=== PATIENT | male | born 1940 | race Caucasian/White ===

== ENCOUNTER 2019-08-24 06:53 | Outpatient (CLI) | payer OTHER, SELFPAY ==
[2019-08-24 06:58] VITALS: BMI 22.2
--- NOTE | 2019-08-24 07:23 | ECG_ITS ---
NAME OF STUDY: LEXISCAN SESTAMIBI STRESS TEST INDICATION: Dyspnea on Effort PROCEDURE: At the baseline, the blood pressure was 153/102 mmHg, oxygen saturation 96% with a heart rate of 88 bpm. The electrocardiogram showed possibly sinus rhythm with frequent PVCs. Interpretation limited by significant artifact. The Lexiscan was infused over a period of 20 seconds. A total of 0.4 milligrams of Lexiscan was infused. The stress phase was continued for a total of 5 minutes. Heart rate at the end of the stress phase was 96 bpm, oxygen saturation 97% with a blood pressure 134/94 mmHg. The EKG at the peak infusion revealed sinus rhythm with significant baseline artifact. No diagnostic ST-T wave changes. Sestamibi was injected 20 seconds after the Lexiscan infusion. Blood pressure at the end of the recovery phase was 122/89 mmHg, oxygen saturation 97% with a heart rate of 90 beats per minute. CONCLUSION: 1. No diagnostic EKG changes with the LexiScan infusion given significant baseline artifact. 2. No LexiScan induced chest pain or cardiac arrhythmia. 3. Normal blood pressure and heart rate response. 4. Sestamibi/sestamibi perfusion scan pending; see separate report. Electronically Signed On 08-24-2019 13:25:46 MICROBIOLOGICAL LAB TECHNICIAN by Hortensia Landa M.D. [email or web address]
--- NOTE | 2019-08-24 07:24 | NMCV_ITS ---
Jake Jarrell Age: 79 Gender: M : 1940 Exam Date: 08/24/2019 07:22 Ordering Phys: Hortensia Landa MD ([email or web address]) Technologist: DANA Hollingsworth Exam Location: [facility] Indications: Dyspnea STRESS TEST Please [facility] IMAGE PROTOCOL Rest/Stress 1 Lexiscan Day Radiopharmaceutical Dose (mCi) Administration Site Administered by Rest: Tc-99m 9.75 IV DANA Hollingsworth Sestamibi Stress:Tc-99m 32.7 IV DANA Hollingsworth Sestamibi Rest: 24-Aug-2019 60 Discovery 630 Stress: 24-Aug-2019 60 Discovery 630 0.4mg Lexiscan. Images obtained in supine and prone position. SPECT RESULTS Technical Quality: Good Raw Data Analysis: Normal Image Corrections: No attenuation or motion correction applied Summed Stress Score: 0 Summed Rest Score: 1 Summed Difference Score: 0 PERFUSION FINDINGS Small size perfusion abnormality of mild severity of mid inferolateral wall on rest images with improved tracer uptake on stress images. This is suggestive of attenuation artifact. FUNCTIONAL RESULTS (calculated via Gated SPECT) Stress Image LV EF (%): 52 Stress EDV (mL):64 TID: 1.06 Stress ESV (mL):31 FUNCTIONAL FINDINGS: The left ventricle is normal in size. Transient Ischemia Dilatation of 1.1. There is low normal left ventricular systolic function. The left ventricular ejection fraction is low normal with a value of 52%. There is normal left ventricular wall thickening. IMPRESSIONS 1. Myocardial perfusion imaging is normal. Attenuation artifact noted on mid inferolateral wall. 2. The left ventricular ejection fraction is low normal with a value of 52%. 3. There is normal left ventricular wall thickening. 4. No coronary ischemia based on the study. Hortensia Landa MD (Electronically Signed) Final Date: 24 August 2019 17:46 S
[2019-08-24] MEDS: regadenoson 0.4 Mg/5 ml Syringe IVP (08:54)
[2019-08-24 08:59] VITALS: BP 134/91; PULSE 97
== END 2019-08-24 06:54 | disposition home or self-care (01) ==
PROVIDERS: Family Provider Family Medicine; PCP Family Medicine; Visit Provider Internal Medicine Cardiovascular Disease
DX: R06.09 Other forms of dyspnea (principal)
CPT/HCPCS: 78452; 93017; A9500; J2785

== ENCOUNTER 2019-09-10 07:53 | Outpatient (CLI) | payer OTHER, SELFPAY ==
--- NOTE | 2019-09-10 07:59 | CT_ITS ---
WS: [id number] CT ABDOMEN PELVIS TECHNIQUE: Noncontrast CT of the abdomen and contrast-enhanced CT of the abdomen and pelvis with amberly nal and sagittal reformatted images. CLINICAL INFORMATION: PROSTATE CANCER COMPARISON: None. DLP: 1573.[address] scans at [facility] use at least one of these dose optimization techniques: automat ed exposure control; mA and/or kV adjustment per patient size (includes targeted exams where dose is matched to clinical indication); or iterative reconstruction. FINDINGS: Heterogeneously enhancing enlarged nodular prostate measuring 4.3 x 4.6 cm. Several enlarged lymph no gus along the left greater than right seminal vesicles and iliac chains. Markedly enlarged iliac kristin n heterogeneously enhancing lymph nodes the largest in the right measuring 2.9 x 2.5 cm consistent wi th metastatic disease. Enhancing right inguinal lymph node measuring 1.7 cm. Left iliac chain lymphad enopathy. Left iliac chain lymph node measures 1.4 CM. Normal sigmoid colon. Diverticulosis. No evidence of acute diverticulitis. Fat-containing umbilical h ernia with a small loop of abutting small bowel. No obstruction. Diffuse fatty infiltration the liver. Low-attenuation lesions in the liver most consistent with hepat ic cysts the largest in the right hepatic lobe measuring 1.8 cm. Portal vein and splenic vein are pat ent. Normal gallbladder. Splenic granulomas. Small esophageal hiatal hernia. Normal pancreas. Aortic calcification. Mesenteric calcification. Emphysematous changes in the lung bases. Noncalcified nodule in the right middle lobe measuring 7 mm. Additional noncalcified nodule right lung base along the di aphragm measuring 9 mm. Calcified granuloma right lung base. Normal bilateral renal parenchymal enhancement. No hydronephrosis. Adrenal glands are normal. Normal caliber abdominal aorta. Enlarged periaortic lymph nodes the largest measuring 13 mm. Proximal left i liac chain lymph nodes the largest measuring 2.0 CM. Multiple enlarged left proximal iliac chain lymp h nodes. CT/CT abdomen pelvis wo/w [id number] IMPRESSION: 1. Heterogeneously enhancing enlarged nodular prostate measuring 4.6 x 4.3CCM. 2. Enlarged lymph nodes along the periprostatic fat and left greater than righ t seminal vesicles. Additional markedly enlarged pelvic sidewall lymph nodes th e largest in the right measuring 2.9 x 2.5 cm consistent with metastatic diseas e. 3. Enlarged left periaortic lymph nodes and markedly enlarged left proximal co mmon iliac chain lymph nodes. Left common iliac chain lymph node measures 2.5 C M. 4. Noncalcified nodule in the right middle lobe measuring 7 mm. 5. Additional noncalcified nodule in the right lower lobe near the diaphragm m easuring 9 mm. These are nonspecific can be further evaluated with chest CT. 6. Multiple hepatic cysts.
--- NOTE | 2019-09-10 07:59 | NM_ITS ---
WS: [id number] Nuclear medicine whole body bone scan, 09/10/2019 Clinical Data: PROSTATE CANCER Comparison: None. Findings: After the intravenous injection of 26.5 mCi of technetium 99m HDP anterior and posterior wh ole body images were obtained. Additional lateral imaging of the cervical spine and skull was perform ed. There are areas of increased radionuclide activity in the left hip and also on the right side of the L4 vertebral body. These could represent metastatic lesions but osteoarthritis is also a possibility. The remainder of the skeleton show no abnormal areas of increased uptake. Renal function appeared to be normal. NM/NM bone scan whole body* [id number] Impression: 1. Increased activity in the right side of the L4 vertebral body and in the lef t hip and recommend left hip x-ray and lumbar spine. 2. Remainder of the skeleton is normal.
[2019-09-10 09:11] LABS: Blood Urea Nitrogen 19 mg/dL (8-23)
[2019-09-10] MEDS: iodixanol 320 mg/mL 100mL Btl IV (09:59)
--- NOTE | 2019-09-10 11:52 | XR_ITS ---
WS: [id number] Lumbar spine, 3 views, 09/10/2019 Clinical Data: COMPARISON TO BONE SCAN Comparison: Nuclear medicine bone scan, 09/10/2019 Findings: There is osteoarthritic change noted at the right side of the L4-L5 disc interspace. This corresponds to the area of activity on the bone scan. No evidence of metastatic disease is seen. There is a slig ht levo scoliosis of the lumbar spine. The thoracic aorta shows calcification but no aneurysm. There is contrast material in the kidneys and bladder from the recent CT scan of the abdomen and pelvis. XR/XR lumbar spine 2-3V* [id number] Impression: 1. Osteoarthritic change in on the right side of the L4-L5 and vertebral bodies and there is no metastatic disease. 2. Remainder of the lumbar spine shows only osteoarthritis.
--- NOTE | 2019-09-10 11:52 | XR_ITS ---
WS: [id number] Left hip, AP and frog leg views, 09/10/2019 Clinical Data: COMPARISON TO BONE SCAN Comparison: [facility] bone scan, 09/10/2019 Findings: No fractures or dislocations are seen. There is minimal narrowing of the joint space. Between the lat eral aspect of the acetabulum and the left femoral head.. The soft tissues are not remarkable. The ad jacent pelvis is normal. No bone destruction or erosion is seen. There is contrast material in the bladder from the patient's CT abdomen and pelvis. XR/XR hip LT 2-3V wo/w pel* [id number] Impression: 1. Minimal osteoarthritic narrowing of the left hip joint. 2. Negative for evidence of bony metastatic disease.
== END 2019-09-10 07:54 | disposition home or self-care (01) ==
LOC: CT 07:55
PROVIDERS: Family Provider Family Medicine; PCP Family Medicine; Visit Provider Urology
DX: C61 Malignant neoplasm of prostate (principal); K76.89 Other specified diseases of liver; M16.12 Unilateral primary osteoarthritis, left hip
CPT/HCPCS: 72100; 73502; 74178; 78306; 82565; 84520; A9561

== ENCOUNTER 2019-10-06 09:53 | Outpatient (CLI) | payer OTHER, SELFPAY ==
--- NOTE | 2019-10-06 12:23 | ONC CON_ITS ---
Dr. Saab New Patient Note Patient: Jake Jarrell Unit #: [id number]: 1940 Dicatated By: Andrae Saab M.D.Date of Visit: Oct 06, 2019 Onc MED New Patient/Consult Referring Physician: Dr. Wade Forrester M.D. History of Present Illness: Mr. 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, 3 cores (right mid 40%, right lateral base 90%, right lateral mid 20%0 Capulin score 3+4, 3 cores (left lateral base 45%, left lateral apex 30%, right base 20%) with Ashish score 4+4 and 2 cores (left lateral mid 50%, left base 15% )with Ashish score 4+5 Left seminal vesicle, Capulin score 4+4 CT scan of chest abdomen pelvis showed large lymph nodes along stanley prostatic at and left greater than right seminal vesicles, markedly enlarged pelvic sidewall lymph nodes the largest in the right measuring 2.9 x 2.5 cm consistent with metastatic disease, enlarged left periaortic lymph nodes and markedly enlarged left proximal common iliac chain lymph nodes, left common iliac lymph node measured 2.5 cm. Noncalcified nodule right middle lobe measuring 7 mm and additional noncalcified nodule right lower lobe of lung near diaphragm measuring 9 mm Bone scan showed increase activity in the right side of L4 vertebral body and in the left hip. Left hip x-ray negative for evidence of bone metastatic disease Lumbar spine x-ray showed arthritic changes on this right side of L4-L5 vertebral bodies, no metastatic disease. The patient was started on bicalutamide by Dr. Forrester on 09/20/2019 Patient denies any bony pains, denies any hematuria or dysuria, denies any hemoptysis or hematemesis, denies any jaundice, denies any nausea vomiting or fever, denies any weight loss. Past Medical History: Mr. Jarrell's medical history consists of benign neoplasm of adrenal gland, bradycardia, chronic obstructive pulmonary disease, cystic disease of liver, dyslipidemia, gastroesophageal reflux disease, history of colon cancer, hypertension, pulmonary nodule, and sinus node dysfunction. Past Surgical History: Mr. Raymundos surgical/procedural history consists of cataract excision, colon resection, pacemaker placement, right knee surgery, tonsillectomy, and trusp/bx. Medications: Albuterol Sulfate (sensor) 1 Puff(s) (of 108 (90 base) mcg/act) Aerosol Powder, Breath Activated Inhalation PRN, amLODIPine Besylate 1 Tablet (of 5 mg) Oral daily, Bicalutamide 1 Tablet (of 50 mg) Oral daily, Metoprolol Tartrate 1 Tablet (of 25 mg) Oral daily, Omeprazole 1 Tablet (of 20 mg) Tablet, enteric coated Oral daily, Rosuvastatin Calcium 1 Tablet (of 10 mg) Oral daily, Tamsulosin HCl 1 Tablet (of 0.4 mg) Capsule Oral b.i.d. Allergies: Oxaliplatin and Simvastatin. Social History: Mr. Jarrell is single. Mr. Jarrell quit smoking 20 years ago but had smoked for 20 years. He has no history of drinking. Family History: Mr. Jarrell's mother at age 90: colon cancer. Mr. Jarrell's father at age 71: stomach cancer. Mr. Jarrell has 2 brothers: 2 alive. Mr. Jarrell's first brother's esophageal cancer. Review Of Symptoms: Constitutional - Appetite is good and weight is stable. No fever, chills, hot flashes, or night sweats. Energy level is good but Pt fatigues easily, ENMT - Positive for sinus congestion/drainage. No mouth sores. No sore throat or difficulty swallowing, Hematologic/Lymphatic - Positive for easy bruising, Respiratory - Positive for shortness of breath. No cough. No pleuritic pain or hemoptysis, Cardiovascular - No angina pain. No palpitations, Gastrointestinal - No nausea or vomiting. No heartburn or acid reflux. No diarrhea or constipation. No blood in the stool or black stools, Genitourinary (M) - No dysuria or hematuria. Positive for urinary frequency. No urgency or incontinence, Musculoskeletal - No joint or bone pain, Neurologic - No headache or dizziness. Pt reports occasional numbness/tingling in extremities, Psychiatric - No anxiety or depression. No insomnia. Vital Signs: Performed on Oct 06, 2019 11:16: 0, 23.86, 1.89 sq.m, 69.00 in, 97 %, 82 /min, 20 /min, 138/97 mm(hg), 97.4 F (LOW), and 161.6 lbs (HIGH). Performance Status: 0 - Fully active, able to carry on all predisease activities without restrictions. (ECOG) Physical Examination: ENMT - No oral exudates, ulcers, masses, thrush or mucositis. Oropharynx clear. Tongue normal, Respiratory - Lungs are clear to auscultation without rhonchi or wheezing, Cardiovascular - Regular rate and rhythm of heart, Abdomen - Non-tender, non-distended, Good bowel sounds. No guarding or rebound tenderness. No pulsatile masses, Extremities - no edema. Lab/Imaging: Most recent lab results are not available for this patient. 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, 3 cores with Ashish score 3+4, 3 cores with Capulin score 4+4, and 2 cores with Capulin score 4+5, and seminal vesicles involvement with Capulin score 4+4 CT scan of chest abdomen pelvis showed large lymph nodes along the periprostatic fat and left greater than right seminal vesicles, Markedly enlarged pelvic sidewall lymph nodes the largest in the right measuring 2.9 x 2.5 cm consistent with metastatic disease Enlarged left periaortic lymph nodes and marked enlarged left proximal common iliac chain lymph nodes, left common iliac chain lymph nodes measuring about 2.5 cm, Noncalcified nodule right middle lobe measuring 7 mm, additional noncalcified nodule right lower lobe of lung near diaphragm measuring 9 mm Bone scan showed increased activity in the right side of L4 vertebral body and in the left hip Left hip x-ray showed no evidence of bony metastatic disease Lumbar spine x-ray shows arthritic changes in right side of L4/L5 vertebral bodies, no metastatic disease. History of sick sinus syndrome now with pacemaker Plan: Discussed with patient regarding his disease status, patient has locally advanced disease with extensive pelvic and para-aortic lymphadenopathy but main concern is right lung nodules, if positive then it we will confirm stage IV disease so we will consider CT PET scan to complete the staging workup, if it shows locoregional disease e.g. no pulmonary metastases, we will consider referred to radiation oncology in addition to ADT with bicalutamide/Zoladex.and also check MSI/MMR status Patient is on bicalutamide since 09/20/2019, tolerating well and we will also add 3 monthly Zoladex 10.8 mg, will obtain approval from his insurance prior to the treatment all the side effect possible benefits associated with ADT including but not limited to hot flashes, generalized weakness and fatigue, gynecomastia, osteoporosis were discussed further teaching will be done by chemotherapy nurse. And also schedule him for CT PET scan to assess pulmonary lesions to rule out distant metastases. As mentioned above if CT PET scan to confirm locoregional disease then we will refer him to radiation oncology for evaluation. Patient will return to clinic 1 month after Zoladex injection with PSA/testosterone and CT PET scan Signed By: Andrae Saab M.D. <<Signature on File>>
[2019-11-09 09:33] LABS: Miscellaneous Test See Scanned Lab Rpt
== END 2019-10-06 09:54 | disposition home or self-care (01) ==
LOC: ONCMED 09:55
PROVIDERS: Family Provider Family Medicine; PCP Family Medicine; Referring Provider Urology; Visit Provider Internal Medicine Hematology & Oncology
DX: C61 Malignant neoplasm of prostate (principal); C77.5 Secondary and unspecified malignant neoplasm of intrapelvic lymph nodes; R91.8 Other nonspecific abnormal finding of lung field; J44.9 Chronic obstructive pulmonary disease, unspecified; E78.5 Hyperlipidemia, unspecified; K21.9 Gastro-esophageal reflux disease without esophagitis; I10 Essential (primary) hypertension; Z79.51 Long term (current) use of inhaled steroids; Z79.899 Other long term (current) drug therapy; Z90.49 Acquired absence of other specified parts of digestive tract; Z85.038 Personal history of other malignant neoplasm of large intestine; Z95.0 Presence of cardiac pacemaker; Z87.891 Personal history of nicotine dependence
CPT/HCPCS: 88367; 88374; 99205

== ENCOUNTER 2019-10-18 14:10 | Outpatient (CLI) | payer OTHER, SELFPAY ==
[2019-10-18] MEDS: lidocaine 1% INJ 20 mL INJECTION (14:36)
[2019-10-18] MEDS: goserelin acetate 10.8 mg Implant IM (14:47)
== END 2019-10-18 14:11 | disposition home or self-care (01) ==
PROVIDERS: Family Provider Family Medicine; PCP Family Medicine; Visit Provider Internal Medicine Hematology & Oncology
DX: C61 Malignant neoplasm of prostate (principal); Z79.818 Long term (current) use of other agents affecting estrogen receptors and estrogen levels
CPT/HCPCS: 96372; 96402; J2001; J9202

== ENCOUNTER 2019-11-09 06:36 | Outpatient (RCR) | payer OTHER, SELFPAY ==
[2019-11-05 13:24] LABS: Prostate Specific Antigen 10.17 ng/mL (0-4)
--- NOTE | 2019-11-09 16:38 | ONC FU_ITS ---
Dr. Saab follow up note Patient: Jake Jarrell Unit #: [id number]: 1940 Dicatated By: Andrae Saab M.D.Date of Visit:Nov 09, 2019 Onc Med Follow-up/Prog Note History of Present Illness: Mr. 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, 3 cores (right mid 40%, right lateral base 90%, right lateral mid 20%0 Ashish score 3+4, 3 cores (left lateral base 45%, left lateral apex 30%, right base 20%) with Ashish score 4+4 and 2 cores (left lateral mid 50%, left base 15% )with Ashish score 4+5 Left seminal vesicle, Ashish score 4+4 CT scan of chest abdomen pelvis showed large lymph nodes along stanley prostatic at and left greater than right seminal vesicles, markedly enlarged pelvic sidewall lymph nodes the largest in the right measuring 2.9 x 2.5 cm consistent with metastatic disease, enlarged left periaortic lymph nodes and markedly enlarged left proximal common iliac chain lymph nodes, left common iliac lymph node measured 2.5 cm. Noncalcified nodule right middle lobe measuring 7 mm and additional noncalcified nodule right lower lobe of lung near diaphragm measuring 9 mm Bone scan showed increase activity in the right side of L4 vertebral body and in the left hip. Left hip x-ray negative for evidence of bone metastatic disease Lumbar spine x-ray showed arthritic changes on this right side of L4-L5 vertebral bodies, no metastatic disease. CT PET scan done on 10/09/2019 showed hypermetabolic lesion in the right prostate gland, consistent with primary. Bilateral pelvic and retroperitoneal lymphadenopathy consistent with metastatic disease. No evidence of osseous metastatic disease or pulmonary metastatic disease. The patient was started on bicalutamide by Dr. Forrester on 09/20/2019 Patient denies any bony pains, denies any hematuria or dysuria, denies any hemoptysis or hematemesis, denies any jaundice, denies any nausea vomiting or fever, denies any weight loss. Came for follow-up, denies any specific complaints, no fever or chills, no nausea or vomiting, no diarrhea constipation, no night sweats, tolerating ADT with Zoladex/Casodex well Medications: Albuterol Sulfate (sensor) 1 Puff(s) (of 108 (90 base) mcg/act) Aerosol Powder, Breath Activated Inhalation PRN, amLODIPine Besylate 1 Tablet (of 5 mg) Oral daily, Bicalutamide 1 Tablet (of 50 mg) Oral daily, Metoprolol Tartrate 1 Tablet (of 25 mg) Oral daily, Omeprazole 1 Tablet (of 20 mg) Tablet, enteric coated Oral daily, Rosuvastatin Calcium 1 Tablet (of 10 mg) Oral daily, Tamsulosin HCl 1 Tablet (of 0.4 mg) Capsule Oral b.i.d. Allergies: Oxaliplatin and Simvastatin. Review of Systems: Constitutional - Appetite is good and weight is stable. No fever, chills, hot flashes, or night sweats. Energy level is good but Pt fatigues easily, ENMT - Positive for sinus congestion/drainage. No mouth sores. No sore throat or difficulty swallowing, Hematologic/Lymphatic - Positive for easy bruising, Respiratory - Positive for shortness of breath. No cough. No pleuritic pain or hemoptysis, Cardiovascular - No angina pain. No palpitations, Gastrointestinal - No nausea or vomiting. No heartburn or acid reflux. No diarrhea or constipation. No blood in the stool or black stools, Genitourinary (M) - No dysuria or hematuria. Positive for urinary frequency. No urgency or incontinence, Musculoskeletal - No joint or bone pain, Neurologic - No headache or dizziness. Pt reports occasional numbness/tingling in extremities, Psychiatric - No anxiety or depression. No insomnia. Vital Signs: Performed on Nov 09, 2019 12:49 Height - 69.00 in Weight - 157.2 lbs (LOW) BSA - 1.86 sq.m BMI - 23.21 Temperature - 97.5 F (LOW) Pulse - 51 /min (LOW) Respiration - 18 /min BP - 124/81 mm(hg) O2 Sat - 96 % Pain - 0 Performance Status: 0 - Fully active, able to carry on all predisease activities without restrictions. (ECOG) Physical Examination: ENMT - No oral exudates, ulcers, masses, thrush or mucositis. Oropharynx clear. Tongue normal, Respiratory - Lungs are clear to auscultation without rhonchi or wheezing, Cardiovascular - Regular rate and rhythm of heart, Abdomen - Non-tender, non-distended, Good bowel sounds. No guarding or rebound tenderness. No pulsatile masses, Extremities - no edema. Lab/Imaging: Most recent lab results are not available for this patient. 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, 3 cores with Holbrook score 3+4, 3 cores with Ashish score 4+4, and 2 cores with Ashish score 4+5, and seminal vesicles involvement with Holbrook score 4+4 CT scan of chest abdomen pelvis showed large lymph nodes along the periprostatic fat and left greater than right seminal vesicles, Markedly enlarged pelvic sidewall lymph nodes the largest in the right measuring 2.9 x 2.5 cm consistent with metastatic disease Enlarged left periaortic lymph nodes and marked enlarged left proximal common iliac chain lymph nodes, left common iliac chain lymph nodes measuring about 2.5 cm, Noncalcified nodule right middle lobe measuring 7 mm, additional noncalcified nodule right lower lobe of lung near diaphragm measuring 9 mm Bone scan showed increased activity in the right side of L4 vertebral body and in the left hip Left hip x-ray showed no evidence of bony metastatic disease Lumbar spine x-ray shows arthritic changes in right side of L4/L5 vertebral bodies, no metastatic disease. History of sick sinus syndrome now with pacemaker Plan: Discussed with patient regarding his labs PSA 10.17 compared to 21.3 at the time of diagnosis and his CT PET scan findings which shows locoregional disease, no evidence of distance metastases as CT scan of abdomen pelvis done initially for staging showed pulmonary nodules. E.g. 7 mm right middle lobe and 9 mm right lower lobe. And bone scan showed increased activity in the right side of L4 vertebra and in the left hip but left hip x-ray was negative for metastatic disease.and MSI/MMR status was intact Clinically, patient doing well with no signs symptoms suggestive of disease progression, tolerating ADT with Zoladex/Casodex well. His CT PET scan shows no evidence of distance metastases rather locoregional disease, this point we will refer him to radiation oncology for evaluation for concurrent ADT and radiation therapy. In the meantime we'll continue supportive care and he'll return to clinic in January for next dose of Zoladex with PSA and testosterone level. Signed By: Andrae Saab M.D. <<Signature on File>>
== END 2019-11-09 23:59 | disposition home or self-care (01) ==
LOC: ONCMED 06:36
PROVIDERS: Family Provider Family Medicine; PCP Family Medicine; Visit Provider Internal Medicine Hematology & Oncology
DX: C61 Malignant neoplasm of prostate (principal); C77.8 Secondary and unspecified malignant neoplasm of lymph nodes of multiple regions; R91.8 Other nonspecific abnormal finding of lung field; M47.896 Other spondylosis, lumbar region; Z79.899 Other long term (current) drug therapy; Z79.818 Long term (current) use of other agents affecting estrogen receptors and estrogen levels; Z95.0 Presence of cardiac pacemaker
CPT/HCPCS: 84153; 99214

== ENCOUNTER 2020-01-13 15:31 | Outpatient (CLI) | payer OTHER, SELFPAY ==
[2020-01-13 17:01] LABS: Prostate Specific Antigen 3.85 ng/mL (0-4)
[2020-01-13 18:51] LABS: Testosterone Total 2.5 ng/dL (193-740)
== END 2020-01-13 15:32 | disposition home or self-care (01) ==
LOC: ONCMED 15:32
PROVIDERS: PCP Family Medicine; Visit Provider Internal Medicine Hematology & Oncology
DX: C61 Malignant neoplasm of prostate (principal)
CPT/HCPCS: 36415; 84153; 84403

== ENCOUNTER 2020-01-18 14:14 | Outpatient (CLI) | payer OTHER, SELFPAY ==
[2020-01-18] MEDS: lidocaine 1% INJ 20 mL INJECTION (15:05)
[2020-01-18] MEDS: goserelin acetate 10.8 mg Implant IM (15:15)
--- NOTE | 2020-01-18 15:15 | ONC FU_ITS ---
Dr. Saab follow up note Patient: Jake Jarrell < Unit #: [id number]: 1940 Dicatated By: Andrae Saab M.D.Date of Visit:Jan 18, 2020 Onc Med Follow-up/Prog Note History of Present Illness: Mr. 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, 3 cores (right mid 40%, right lateral base 90%, right lateral mid 20%0 Houston score 3+4, 3 cores (left lateral base 45%, left lateral apex 30%, right base 20%) with Houston score 4+4 and 2 cores (left lateral mid 50%, left base 15% )with Ashish score 4+5 Left seminal vesicle, Houston score 4+4 CT scan of chest abdomen pelvis showed large lymph nodes along stanley prostatic at and left greater than right seminal vesicles, markedly enlarged pelvic sidewall lymph nodes the largest in the right measuring 2.9 x 2.5 cm consistent with metastatic disease, enlarged left periaortic lymph nodes and markedly enlarged left proximal common iliac chain lymph nodes, left common iliac lymph node measured 2.5 cm. Noncalcified nodule right middle lobe measuring 7 mm and additional noncalcified nodule right lower lobe of lung near diaphragm measuring 9 mm Bone scan showed increase activity in the right side of L4 vertebral body and in the left hip. Left hip x-ray negative for evidence of bone metastatic disease Lumbar spine x-ray showed arthritic changes on this right side of L4-L5 vertebral bodies, no metastatic disease. CT PET scan done on 10/09/2019 showed hypermetabolic lesion in the right prostate gland, consistent with primary. Bilateral pelvic and retroperitoneal lymphadenopathy consistent with metastatic disease. No evidence of osseous metastatic disease or pulmonary metastatic disease. The patient was started on bicalutamide by Dr. Forrester on 09/20/2019 Patient denies any bony pains, denies any hematuria or dysuria, denies any hemoptysis or hematemesis, denies any jaundice, denies any nausea vomiting or fever, denies any weight loss. Came for follow-up, denies any specific complaint except progressive shortness of breath especially wheezing on exertion, patient has history of COPD, as per patient he called his PMD and he was given 2 inhalers 1 was albuterol and other was Symbicort, as per patient is not helping much. Denies any palpitation or chest pain denies any fever chills diarrhea nausea or vomiting but postnasal drip occasionally dry cough. Occasional hot flashes, tolerating Zoladex/Casodex well otherwise. Patient was referred to radiation oncology, as per patient he did not get any call from them. Medications: Albuterol Sulfate (sensor) 1 Puff(s) (of 108 (90 base) mcg/act) Aerosol Powder, Breath Activated Inhalation PRN, amLODIPine Besylate 1 Tablet (of 5 mg) Oral daily, Bicalutamide 1 Tablet (of 50 mg) Oral daily, Metoprolol Tartrate 1 Tablet (of 25 mg) Oral daily, Omeprazole 1 Tablet (of 20 mg) Tablet, enteric coated Oral daily, ProAir HFA 1 Puff(s) (of 108 (90 base) mcg/act) Aerosol, solution Inhalation four times a day PRN, Rosuvastatin Calcium 1 Tablet (of 10 mg) Oral daily, Symbicort 1 Puff(s) (of 160-4.5 mcg/act) Aerosol Inhalation b.i.d., Tamsulosin HCl 1 Tablet (of 0.4 mg) Capsule Oral b.i.d. Allergies: Oxaliplatin and Simvastatin. Review of Systems: Constitutional - Appetite is good and weight is stable. No fever, chills, hot flashes, or night sweats. Energy level is good but Pt fatigues easily, ENMT - Positive for sinus congestion/drainage. No mouth sores. No sore throat or difficulty swallowing, Hematologic/Lymphatic - Positive for easy bruising, Respiratory - Positive for shortness of breath. No cough. No pleuritic pain or hemoptysis, Cardiovascular - No angina pain. No palpitations, Gastrointestinal - No nausea or vomiting. No heartburn or acid reflux. No diarrhea or constipation. No blood in the stool or black stools, Genitourinary (M) - No dysuria or hematuria. Positive for urinary frequency. No urgency or incontinence, Musculoskeletal - No joint or bone pain, Neurologic - No headache or dizziness. Pt reports occasional numbness/tingling in extremities, Psychiatric - No anxiety or depression. No insomnia. Vital Signs: Performed on Jan 18, 2020 14:26 Height - 69.00 in Weight - 157.6 lbs (HIGH) BSA - 1.87 sq.m BMI - 23.27 Temperature - 98.0 F (LOW) Pulse - 79 /min Respiration - 18 /min BP - 112/73 mm(hg) O2 Sat - 99 % Pain - 0 Performance Status: 1 - No physically strenuous activity, but ambulatory and able to carry out light or sedentary work (e.g. office work, light house work). (ECOG) Physical Examination: ENMT - No mouth sores, no thrush, no jaundice, Respiratory - Mild bilateral wheezing otherwise clear, Heart regular rate and rhythm, Abdomen - Soft, bowel sounds present, Extremities - No visible edema or rash. 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, 3 cores with Houston score 3+4, 3 cores with Ashish score 4+4, and 2 cores with Houston score 4+5, and seminal vesicles involvement with Houston score 4+4 CT scan of chest abdomen pelvis showed large lymph nodes along the periprostatic fat and left greater than right seminal vesicles, Markedly enlarged pelvic sidewall lymph nodes the largest in the right measuring 2.9 x 2.5 cm consistent with metastatic disease Enlarged left periaortic lymph nodes and marked enlarged left proximal common iliac chain lymph nodes, left common iliac chain lymph nodes measuring about 2.5 cm, Noncalcified nodule right middle lobe measuring 7 mm, additional noncalcified nodule right lower lobe of lung near diaphragm measuring 9 mm Bone scan showed increased activity in the right side of L4 vertebral body and in the left hip Left hip x-ray showed no evidence of bony metastatic disease Lumbar spine x-ray shows arthritic changes in right side of L4/L5 vertebral bodies, no metastatic disease. History of sick sinus syndrome now with pacemaker Plan: Discussed with patient regarding his labs PSA 3.85 compared to 10.17 on November 05, 2019 and testosterone is 2.5. Clinically, patient is doing well, tolerating ADT with Casodex/Zoladex well, his follow-up PSA level shows excellent response, at this point we will proceed with the next 3 monthly dose of Zoladex today and then he will return to clinic in 3 months in the meantime will discontinue bicalutamide today and refer him to radiation oncology again. As far as COPD exacerbation is concerned patient has no signs symptoms suggestive of infection and not much improvement with inhalers, we will give him a trial of Medrol Dosepak, if there is no improvement patient was advised to go to hospital for evaluation and also contact his PMD for evaluation and for possible referral to pulmonology for evaluation and optimizing pulmonary function. We will also check baseline CBC CMP and then he will return to clinic in 3 months with PSA and for Zoladex Signed By: Andrae Saab M.D. <<Signature on File>>
[2020-01-18 15:18] LABS: Basophils # 0.1 10^3/uL (0.0-0.1); Basophils % 0.6 %; Eosinophils # 0.1 10^3/uL (0.0-0.8); Eosinophils % 0.9 %; Hematocrit 43.5 % (42.0-52.0); Lymphocytes # 1.7 10^3/uL (0.8-4.8); Lymphocytes % 20.9 %; Mean Corpuscular HGB Conc 32.2 g/dL (30.0-36.0); Mean Corpuscular Hemoglobin 29.9 pg (28.0-34.0); Mean Corpuscular Volume 92.8 fL (80-94); Mean Platelet Volume 9.9 fL (7.4-10.4); Monocytes # 0.7 10^3/uL (0.2-0.9); Monocytes % 8.5 %; Neutrophils # 5.5 10^3/uL (1.8-7.7); Neutrophils % 68.9 %; Nucleated Red Blood Cells % 0 %; Platelet Count 229 10^3/cmm (130-400); Red Blood Count 4.69 10^6/uL (4.1-5.3); Red Cell Distribution Width 12.5 % (12.1-15.1)
[2020-01-18 15:29] LABS: Alanine Aminotransferase 16 U/L (0-41); Albumin Level 4.8 g/dL (3.5-5.2); Alkaline Phosphatase 51 IU/L (40-130); Anion Gap 13.1 (5-19); Aspartate Amino Transferase 22 U/L (0-40); Blood Urea Nitrogen 25 mg/dL (8-23); Calcium 9.5 mg/dL (8.5-10.5); Carbon Dioxide 27 mmol/L (22-29); Chloride 103 mmol/L (98-107); Globulin 2.3 g/dL (1.3-4.6); Glucose 81 mg/dL (65-115); Osmolality Calculated 284 mOsm/kg (285-295); Potassium 4.1 mmol/L (3.5-5.1); Sodium 139 mmol/L (136-145); Total Bilirubin 0.4 mg/dL (0.15-1.2); Total Protein 7.1 g/dL (6.6-8.7)
== END 2020-01-18 14:15 | disposition home or self-care (01) ==
LOC: ONCMED 14:16
PROVIDERS: PCP Family Medicine; Visit Provider Internal Medicine Hematology & Oncology
DX: C61 Malignant neoplasm of prostate (principal); R97.20 Elevated prostate specific antigen [PSA]; Z79.818 Long term (current) use of other agents affecting estrogen receptors and estrogen levels
CPT/HCPCS: 80053; 85025; 96372; 96402; 99214; J2001; J9202

== ENCOUNTER 2020-01-26 13:52 | Outpatient (CLI) | payer OTHER, SELFPAY ==
--- NOTE | 2020-01-26 15:39 | N.ONRAD NP_ITS ---
Radiation Oncology New Patient Visit Patient: Jake Jarrell MR#: [id number] : 1940> Age: 79> Sex: Male> Dictated by: Dr. Myke Catherine Date of Service: 01/26/2020 Referring Physician(s) : Dr. Wade Forrester Diagnosis: C61 - malignant neoplasm of prostate, Diagnosed 10/06/2019 (active). Radiotherapy to date: Summary > No prior radiation therapy. Chief Complaint / History of Present Illness: Mr. Jarrell is a 79-year-old man with advanced prostate cancer. He was found to have an elevated PSA early in 2019. I think he presented with obstructive symptoms and was placed on Flomax with good results, but a PSA done during that evaluation was elevated. He elected a conservative approach but the elevation of the PSA persisted and on 07/30/2019 he underwent prostate biopsies. He had multiple positive biopsies with Dawn 8 and 9 scores. A biopsy of the left seminal vesicle showed Dawn 4+4 cancer as well. His work-up revealed positive pelvic nodes bilaterally and suspicious bilateral periaortic nodes. His bone scan scan showed activity at L4 and in the left hip. Plain film evaluation indicated degenerative disease in the spine and normal findings in the hip. He also went underwent a PET scan 10/09/2019. That study revealed hypermetabolic lesions in the proximal right prostate gland, bilateral pelvic and retroperitoneal lymphadenopathy and along the bilateral periaortic chain. Mr. Jarrell was started on Casodex and subsequently Zoladex was added. He has had an excellent response to treatment. His PSA is down in the normal range. He feels well except for symptoms related to his COPD. He filled out an AUA symptom score sheet today and his total score was 2. He tells me he really has no trouble with emptying his bladder at all. He has had some left hip pain in the area where his bone scan was abnormal. However, he states that pain has been improving. He attributes that to changing cholesterol medication. He has no lumbar pain or other bone pain. He has very minimal fatigue and has no problems with his appetite at all. His cancer history is remarkable for colon cancer several years ago. He was treated with surgery and chemotherapy. He denies recurrence. He has colonoscopies on a regular basis every few years. He thinks he may be due for one in March. Current Medications: Albuterol Sulfate (sensor), amLODIPine Besylate, bicalutamide, metoprolol Tartrate, omeprazole, proAir HFA, rosuvastatin Calcium, symbicort, tamsulosin HCl. Allergies: Oxaliplatin and Simvastatin. Medical History: - Benign neoplasm of adrenal gland, - bradycardia, - chronic obstructive pulmonary disease, - cystic disease of liver, - dyslipidemia, - gastroesophageal reflux disease, - history of colon cancer, - hypertension, - pulmonary nodule, - sinus node dysfunction. No history of collagen vascular disease. No previous radiation therapy. Surgical History: Cataract excision, colon resection, pacemaker placement, right knee surgery, tonsillectomy and trusp/bx. Family History: Father is at age 71 having experienced stomach cancer. Mother is at age 90 having experienced colon cancer. Brother is alive having experienced esophageal cancer. Brother is alive. Social History: Last screened on 01/26/2020 - Yes - but has quit for 20 years. Smoked 2.0 packs/day for 20 years (40 pack years). Last screened on 01/26/2020 - Never drank. Current Complaints / Review of Systems: Constitutional - Complains of fatigue. Denies lack of appetite, fever, night sweats and change in weight. Eyes - Denies blurred vision and double vision. ENMT - Complains of problems with hearing. Denies dysphagia, ear pain, mouth dryness, stomatitis and altered taste. Neck - Denies neck pain. Integumentary - Denies rash. Cardiovascular - Denies chest pain and edema. Patient has a pacemaker. Respiratory - Complains of moderate dyspnea associated with normal activity. Complains of wheezing. Denies cough. Gastrointestinal - Denies abdominal pain, constipation, diarrhea, heartburn / dyspepsia, melena / GI bleeding, pain / cramping and vomiting. Genitourinary (M) - Complains of frequency and nocturia gets up about 1 time per night. Denies dysuria, hematuria and urgency. Musculoskeletal - Complains of mild joint pain in the left hip. Complains of generalized muscle weakness. Denies bone pain. Neurologic - Denies dizziness and headaches. Has numbness and tingling of the extrimities. Endocrine - Denies diabetes and thyroid disease. Hematologic/Lymphatic - Denies tender or enlarged lymph nodes.. Vital Signs: Performed on 01/26/2020 2:29 PM BMI - 23.215 kg/m2 (high), Height - 69.00 in, Weight - 157.2 lbs, Temperature - 97.3 f, Pulse - 60, Respiration - 18, O2 Sat - 96 %, Pain - 0 and BP - 144/ 77 mm(hg)(high/). Physical Exam: Alert, oriented, no acute distress. No cervical or supraclavicular lymphadenopathy. Lungs are clear to percussion. On auscultation he has decreased breath sounds bilaterally. No rales rhonchi or wheezes noted. His heart rhythm is regular. No murmur or gallop noted. (He is noted from the record to have a pacemaker secondary to sick sinus syndrome. While I listened, his heart rhythm was regular). His abdomen has no distention. Bowel sounds are normal. No organomegaly or mass or tenderness. Musculoskeletal exam reveals a normal gait without discomfort. He has no bone tenderness of the spine, shoulders, ribs, upper extremities, or lower extremities. Both hips have a free range of motion without pain. There is slight discomfort on palpation directly over the left hip joint. Performance Status: KPS:50 Pathology: Primary, c61 - malignant neoplasm of prostate, Diagnosed 10/06/2019 (active). Lab: Test performed on 01/13/2020 3:40 PM Testosterone, Total - 2.5 ng/dl (low), Test performed on 01/18/2020 3:00 PM BUN - 25 mg/dl (high), Creatinine - 1.3 mg/dl (high) and Cr Clearance (Est) - 47.3500 ml/min (low). Imaging: See HPI Impression: Mr. Jarrell has a high risk prostate cancer based on his elevated PSA and very high Dawn scores. His imaging reveals definite pelvic lymphadenopathy and probable periaortic lymphadenopathy. He has responded very nicely to hormonal therapy. Casodex has recently been discontinued. He feels well and is only limited by his severe COPD. I discussed the possibility of delivering pelvic radiation with him. I discussed that the course of treatment is usually about 7 weeks. I discussed the side effects that typically occur including fatigue, bladder irritative and obstructive symptoms, and lower GI symptoms, particularly diarrhea. I discussed the small risk of bowel or bladder injury that could require surgery and even an ostomy. Mr. Jarrell's performance status is quite limited and he has significant comorbidities including COPD and sick sinus syndrome. He also has a history of colon cancer, although that appears inactive at this time based on his history. I told Mr. Jarrell that I would not recommend delivering radiation at this time. The circumstances in which I would recommend treatment are if his AUA symptom score rises significantly, he develops pelvic pain, or his PSA begins to rise steadily and imaging evaluation does not reveal any significant disease outside the pelvis. I discussed my recommendation with Mr. Jarrell and he is in agreement. If he does reach the point where he desires radiation or he has symptoms which make it advisable, I think it would be camacho to wait until he has had his next scheduled follow-up colonoscopy before delivering the radiation. Plan: No radiation planned at this time. Signed by: 01/26/2020 3:37:52 PM <<Signature on File>> Time spent with patient: CPT Code: CPT Code:
== END 2020-01-26 13:53 | disposition home or self-care (01) ==
LOC: ONCMED 13:53
PROVIDERS: PCP Family Medicine; Visit Provider Specialist
DX: C61 Malignant neoplasm of prostate (principal); R59.0 Localized enlarged lymph nodes; J44.9 Chronic obstructive pulmonary disease, unspecified; I49.5 Sick sinus syndrome; Z85.038 Personal history of other malignant neoplasm of large intestine; Z87.891 Personal history of nicotine dependence
CPT/HCPCS: 99204

== ENCOUNTER → 2020-04-07 08:34 | Outpatient (BNVA) | payer OTHER, SELFPAY | PROVIDERS: PCP Family Medicine; Visit Provider Internal Medicine | DX: R91.1 Solitary pulmonary nodule (principal) | CPT/HCPCS: 87635 ==

== ENCOUNTER 2020-04-11 12:51 | Outpatient (CLI) | payer OTHER, SELFPAY ==
--- NOTE | 2020-04-11 13:21 | PFTS_ITS ---
Date of Study:04/11/20 Date of Dictation: MECHANICS: Forced vital capacity (FVC) is reduced. Forced expiratory volume in one second (FEV1) is reduced. FEV1/FVC is reduced. FLOW VOLUME LOOP: Reduced flow at all lung volumes with significant scooping. LUNG VOLUMES: Lung volumes were not measured DIFFUSING CAPACITY FOR CARBON MONOXIDE: Moderately reduced. INTERPRETATION: The pulmonary function tests are consistent with severe airflow obstruction. Lung volumes are not measured. Gas exchange (DLCO) is moderately reduced. MTDD
== END 2020-04-11 12:52 | disposition home or self-care (01) ==
LOC: RT 12:51
PROVIDERS: PCP Family Medicine; Visit Provider Internal Medicine Critical Care Medicine
DX: J44.9 Chronic obstructive pulmonary disease, unspecified (principal)
CPT/HCPCS: 94010; 94729

== ENCOUNTER 2020-04-20 09:40 | Outpatient (CLI) | payer OTHER, SELFPAY | END 2020-04-20 09:41 | disposition home or self-care (01) | LOC: ONCMED 09:41 | PROVIDERS: PCP Family Medicine; Visit Provider Internal Medicine Hematology & Oncology | DX: C61 Malignant neoplasm of prostate (principal) | CPT/HCPCS: 84153 ==

== ENCOUNTER 2020-04-24 08:29 | Outpatient (CLI) | payer OTHER, SELFPAY ==
[2020-04-24] MEDS: lidocaine 1% INJ 20 mL INJECTION (09:40)
[2020-04-24] MEDS: goserelin acetate 10.8 mg Implant IM (09:50)
--- NOTE | 2020-04-24 09:55 | ONC FU_ITS ---
[facility] Patient Note Patient: Jake Jarrell Unit #: [id number]: 1940 Dictated By: Indu IsaacsDate of Visit: Apr 24, 2020 Onc MED Follow-Up/Prog Note Chief Complaint: Prostate cancer History of Present Illness: Mr. Jarrell is a 80-year-old gentleman with history of elevated PSA since August 2018. During follow-up, his PSA had gone up to 21.3 and repeat PSA on 04/05/2019 was 17.76. 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, 3 cores (right mid 40%, right lateral base 90%, right lateral mid 20%0 Chandler score 3+4, 3 cores (left lateral base 45%, left lateral apex 30%, right base 20%) with Ashish score 4+4 and 2 cores (left lateral mid 50%, left base 15% )with Ashish score 4+5 Left seminal vesicle, Chandler score 4+4 CT scan of chest abdomen pelvis showed large lymph nodes along stanley prostatic at and left greater than right seminal vesicles, markedly enlarged pelvic sidewall lymph nodes the largest in the right measuring 2.9 x 2.5 cm consistent with metastatic disease, enlarged left periaortic lymph nodes and markedly enlarged left proximal common iliac chain lymph nodes, left common iliac lymph node measured 2.5 cm. Noncalcified nodule right middle lobe measuring 7 mm and additional noncalcified nodule right lower lobe of lung near diaphragm measuring 9 mm Bone scan showed increase activity in the right side of L4 vertebral body and in the left hip. Left hip x-ray negative for evidence of bone metastatic disease Lumbar spine x-ray showed arthritic changes on this right side of L4-L5 vertebral bodies, no metastatic disease. CT PET scan done on 10/09/2019 showed hypermetabolic lesion in the right prostate gland, consistent with primary. Bilateral pelvic and retroperitoneal lymphadenopathy consistent with metastatic disease. No evidence of osseous metastatic disease or pulmonary metastatic disease. The patient was started on bicalutamide by Dr. Forrester on 09/20/2019 He was seen in January [address] Saab and his Casodex was stopped at that time. He did have consultation with radiation oncology at that time. Dr Catherine did not recommend radiation at this time. He advised Mr. Jarrell that he would wait until he begins having pain or his PSA begins to rise steadily again or imaging indicates the need for radiation. Mr. Jarrell has continued with the Zoladex and tolerated this well. Mr. Jarrell is here today for follow-up. He is due for his third dose of Zoladex. His only concerns are shortness of breath which is not new. He is currently having this worked up with Dr. Mccabe and pulmonology. He indicates that he had a PFT last week and had a chest CT earlier in the year and is waiting to see Dr. Mccabe next week to go over those results. He states his breathing is no worse than what he he was here last but it is no better either. He states Dr. Mccabe has been talking to him about possibly pulmonary rehab. I did encourage this as most patients and does have a lot of benefit from this. He denies any other concerns. He does have myalgias and states that he has a lot of muscle and bone pain intermittently but nothing specific. He states this is been ongoing for some time. I do not see any vitamin D level on him for evaluation of his myalgias. He denies any urinary pattern changes. He denies any diarrhea or constipation. He denies any fever or chills. He denies mouth sores, sore throat or difficulty swallowing. He remains active as possible given that his shortness of breath is so significant. He states Dr. Redding has changed his inhalers to one inhaler that has 3 medications in it and he is tolerating this well. He has no other concerns today. His ECOG is 1. Past Medical History: Benign neoplasm of adrenal gland Bradycardia Chronic obstructive pulmonary disease Cystic disease of liver Dyslipidemia Gastroesophageal reflux disease History of colon cancer Hypertension Pulmonary nodule Sinus node dysfunction Past Surgical History: Cataract excision Colon resection Pacemaker placement Right knee surgery Tonsillectomy Trusp/bx Allergies: Oxaliplatin and Simvastatin. Medications: amLODIPine Besylate 1 Tablet (of 5 mg) Oral daily Metoprolol Tartrate 1 Tablet (of 25 mg) Oral daily Omeprazole 1 Tablet (of 20 mg) Tablet, enteric coated Oral daily Rosuvastatin Calcium 1 Tablet (of 10 mg) Oral daily Tamsulosin HCl 1 Tablet (of 0.4 mg) Capsule Oral b.i.d. Trelegy Ellipta 1 Puff(s) (of 100-62.5-25 mcg/inh) Aerosol Powder, Breath Activated Inhalation daily Family History: Mr. Jarrell's mother at age 90: colon cancer. Mr. Jarrell's father at age 71: stomach cancer. Mr. Jarrell has 2 brothers: 2 alive. Mr. Jarrell's first brother's esophageal cancer. Social History: Mr. Jarrell is single. Mr. Jarrell quit smoking 20 years ago but had smoked 2.0 packs/day for 20 years. He has no history of drinking. Review Of Symptoms: Constitutional Denies fevers, chills, night sweats, excessive fatigue or weight loss. Allergic/Immunologic No reactions. Eyes Denies significant visual changes. No diplopia. No amaurosis. ENMT Denies changes in hearing, sore throat, mouth sores, difficulty or changes in swallowing ability, and/or sinus drainage. Endocrine No diabetes, thyroid disease or hormone replacement. Denies hot flashes or night sweats. Hematologic/Lymphatic Denies easy bruising or bleeding. The patient denies any tender or palpable lymph nodes. Breasts Respiratory SOB working up with Dr MCCABE. Cardiovascular Denies anginal chest pain, palpitations or orthopnea. Gastrointestinal Denies nausea, vomiting, diarrhea, GI bleeding, or constipation. Denies change in bowel habits and/or stool color, no heartburn or early satiety. Genitourinary (M) Denies hematuria, dysuria, increased frequency, urgency, hesitancy or incontinence. Musculoskeletal Denies joint pain, swelling or redness. No decreased range of motion. Integumentary Denies chronic rashes, inflammation, ulcerations or skin changes. Neurologic Denies headache, blurred vision, and no areas of focal weakness or numbness. Normal gait. No sensory problems. Psychiatric Denies insomnia, depression, minh or mood swings. Vital Signs: Performed on Apr 24, 2020 08:59 Height - 69.00 in Weight - 161.0 lbs (HIGH) BSA - 1.88 sq.m BMI - 23.78 Temperature - 97.0 F (LOW) Pulse - 85 /min Respiration - 18 /min BP - 151/102 mm(hg) (HIGH) O2 Sat - 98 % Pain - 0,1 - No physically strenuous activity, but ambulatory and able to carry out light or sedentary work (e.g. office work, light house work). (ECOG) Physical Examination: Constitutional Alert, oriented, no acute distress. Skin pink, warm and dry. Head Normocephalic; atraumatic. Eyes Conjunctivae and sclerae are clear and without icterus. Pupils are reactive and equal. ENMT No oral exudates, ulcers, masses, thrush or mucositis. Oropharynx clear. Tongue normal. Neck Supple without masses or thyromegaly. No jugular venous distension. Hematologic/Lymphatic No petechiae or purpura. No tender or palpable lymph nodes in the cervical or supraclavicular areas. Respiratory Lungs are clear to auscultation without rhonchi or wheezing. Faint expiratory wheeze left upper lobe. Cardiovascular Regular rate and rhythm of heart without murmurs,clicks, gallops or rubs. Abdomen Non-tender, non-distended, no masses or ascites. Good bowel sounds noted in all quads. No guarding or rebound tenderness. No pulsatile masses. Back/Spine Non-tender to palpation. Extremities No visible deformities, no cyanosis, clubbing or edema. Musculoskeletal No tenderness or swelling, normal range of motion without obvious weakness. Integumentary No rashes or lesions. Neurologic No sensory or motor deficits, normal cerebellar function, normal gait. Psychiatric Alert and oriented times three. Coherent speech. Verbalizes understanding of our discussions today. Laboratory:Test performed on Jan 18, 2020 15:00 Sodium 139 mmol/L Potassium 4.1 mmol/L Chloride 103 mmol/L CO2 27 mmol/L Anion Gap 13.1 BUN 25 mg/dL Creatinine 1.3 mg/dL Cr Clearance (Est) 47.3500 mL/min Glucose 81 mg/dL Calcium 9.5 mg/dL Protein, Total 7.1 g/dL Albumin 4.8 g/dL Globulin 2.3 g/dL Bilirubin, Total 0.4 mg/dL ALT (SGPT) 16 U/L AST (SGOT) 22 U/L Alkaline Phosphatase 51 IU/L WBC 8.0 10 3/uL RBC 4.69 10 6/uL HGB 14.0 g/dL HCT 43.5 % MCV 92.8 fL MCH 29.9 pg MCHC 32.2 g/dL RDW 12.5 % Platelet Count 229 10 3/cmm MPV 9.9 fL Neutrophils 5.5 10 3/uL Lymphocytes 1.7 10 3/uL Monocytes 0.7 10 3/uL Eosinophils 0.1 10 3/uL Basophils 0.1 10 3/uL Neutrophil % 68.9 % Lymphocyte % 20.9 % Monocyte % 8.5 % Eosinophil % 0.9 % Basophils % 0.6 % NRBC % 0 % Test performed on Jan 13, 2020 15:40 Testosterone, Total 2.5 ng/dL PSA 3.85 ng/mL 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, 3 cores with Chandler score 3+4, 3 cores with Ashish score 4+4, and 2 cores with Chandler score 4+5, and seminal vesicles involvement with Ashish score 4+4 CT scan of chest abdomen pelvis showed large lymph nodes along the periprostatic fat and left greater than right seminal vesicles, Markedly enlarged pelvic sidewall lymph nodes the largest in the right measuring 2.9 x 2.5 cm consistent with metastatic disease Enlarged left periaortic lymph nodes and marked enlarged left proximal common iliac chain lymph nodes, left common iliac chain lymph nodes measuring about 2.5 cm, Noncalcified nodule right middle lobe measuring 7 mm, additional noncalcified nodule right lower lobe of lung near diaphragm measuring 9 mm Bone scan showed increased activity in the right side of L4 vertebral body and in the left hip Left hip x-ray showed no evidence of bony metastatic disease Lumbar spine x-ray shows arthritic changes in right side of L4/L5 vertebral bodies, no metastatic disease. History of sick sinus syndrome now with pacemaker Mr Jarrell is currently being treated with every 3 month Zoladex single agent. He began the Zoladex on 10/18/2019. He has tolerated it well. He is off Casodex as of January. Plan: 1. Proceed with Zoladex today as scheduled. 2. Continue current medications otherwise. He remains off the Casodex. 3. PSA from April 19, 2028 was reviewed in detail and discussed with Mr. Jarrell and a copy was given to him. His PSA was 2.80. It was 3.85 on January 13, 2020 and 10.17 on November 05, 2019. 4. We will plan to see him back in 3 months with CBC CMP PSA and vitamin D level for evaluation of myalgia. He is hormone deficient as well. We do need to consider doing a bone density on him at some point however he is currently being worked up for pulmonary concerns per Dr. Mccabe. 5. Mr. Jarrell was instructed to contact us in interim should questions or problems arise. Signed By: Indu Isaacs-, AOCNP Andrae Saab MD <<Signature on File>>
== END 2020-04-24 08:30 | disposition home or self-care (01) ==
LOC: ONCMED 08:30
PROVIDERS: PCP Family Medicine; Visit Provider Nurse Practitioner
DX: C61 Malignant neoplasm of prostate (principal); M79.10 Myalgia, unspecified site; Z79.818 Long term (current) use of other agents affecting estrogen receptors and estrogen levels; Z95.0 Presence of cardiac pacemaker
CPT/HCPCS: 96372; 96402; 99214; J9202

== ENCOUNTER 2020-05-18 12:22 | Outpatient (RCR) | payer OTHER, SELFPAY | END 2020-06-10 23:59 | disposition home or self-care (01) | LOC: PULRHB 12:22 | PROVIDERS: PCP Family Medicine; Visit Provider Internal Medicine Critical Care Medicine | DX: J44.9 Chronic obstructive pulmonary disease, unspecified (principal) | CPT/HCPCS: 94618; G0424 ==

== ENCOUNTER 2020-06-11 06:00 | Outpatient (RCR) | payer OTHER, SELFPAY | END 2020-07-10 23:59 | disposition home or self-care (01) | LOC: PULRHB 06:00 | PROVIDERS: PCP Family Medicine; Visit Provider Internal Medicine Critical Care Medicine | DX: J44.9 Chronic obstructive pulmonary disease, unspecified (principal) | CPT/HCPCS: G0424 ==

== ENCOUNTER 2020-07-11 06:00 | Outpatient (RCR) | payer OTHER, SELFPAY | END 2020-08-10 23:59 | disposition home or self-care (01) | LOC: PULRHB 06:00 | PROVIDERS: PCP Family Medicine; Visit Provider Internal Medicine Critical Care Medicine | DX: J44.9 Chronic obstructive pulmonary disease, unspecified (principal) | CPT/HCPCS: G0424 ==

== ENCOUNTER → 2020-07-14 15:10 | Outpatient (BNVA) | payer OTHER, SELFPAY | PROVIDERS: PCP Family Medicine; Visit Provider Internal Medicine | DX: Z20.828 Contact with and (suspected) exposure to other viral communicable diseases (principal); Z01.818 Encounter for other preprocedural examination; Z85.038 Personal history of other malignant neoplasm of large intestine | CPT/HCPCS: 87635 ==

== ENCOUNTER 2020-07-19 14:40 | Outpatient (CLI) | payer OTHER, SELFPAY ==
[2020-07-19 15:58] LABS: Basophils # 0.1 10^3/uL (0.0-0.1); Basophils % 0.7 %; Eosinophils # 0.1 10^3/uL (0.0-0.8); Eosinophils % 0.6 %; Hematocrit 42.5 % (42.0-52.0); Lymphocytes # 1.7 10^3/uL (0.8-4.8); Lymphocytes % 18.5 %; Mean Corpuscular HGB Conc 32.9 g/dL (30.0-36.0); Mean Corpuscular Hemoglobin 29.7 pg (28.0-34.0); Mean Platelet Volume 10.9 fL (7.4-10.4); Monocytes # 0.7 10^3/uL (0.2-0.9); Monocytes % 7.8 %; Neutrophils # 6.55 10^3/uL (1.8-7.7); Neutrophils % 72.1 %; Nucleated Red Blood Cells % 0 %; Platelet Count 241 10^3/cmm (130-400); Red Blood Count 4.72 10^6/uL (4.1-5.3); Red Cell Distribution Width 12.9 % (12.1-15.1); White Blood Count 9.1 10^3/uL (4.0-10.0)
[2020-07-19 16:42] LABS: Alanine Aminotransferase 20 U/L (0-41); Albumin Level 4.2 g/dL (3.5-5.2); Alkaline Phosphatase 61 IU/L (40-130); Anion Gap 15.5 (5-19); Aspartate Amino Transferase 25 U/L (0-40); Blood Urea Nitrogen 25 mg/dL (8-23); Calcium 9.8 mg/dL (8.5-10.5); Carbon Dioxide 22 mmol/L (22-29); Chloride 105 mmol/L (98-107); Globulin 2.7 g/dL (1.3-4.6); Glucose 98 mg/dL (65-115); Osmolality Calculated 290 mOsm/kg (285-295); Potassium 4.5 mmol/L (3.5-5.1); Sodium 138 mmol/L (136-145); Total Bilirubin 0.2 mg/dL (0.15-1.2); Total Protein 6.9 g/dL (6.6-8.7)
[2020-07-19 20:19] LABS: 25 Hydroxy Vitamin D 46 ng/mL (30-100)
== END 2020-07-19 14:41 | disposition home or self-care (01) ==
PROVIDERS: PCP Family Medicine; Visit Provider Nurse Practitioner
DX: C61 Malignant neoplasm of prostate (principal); E55.9 Vitamin D deficiency, unspecified; R97.20 Elevated prostate specific antigen [PSA]
CPT/HCPCS: 36415; 80053; 82306; 84153; 85025

== ENCOUNTER 2020-07-21 08:40 | Day surgery (SDC) | payer OTHER, SELFPAY ==
[2020-07-19 16:13] VITALS: BMI 23.3
[2020-07-21 08:57] VITALS: BP 116/95; PULSE 69; RESP 20; TEMP 36.1; O2SAT 97
[2020-07-21] MEDS: sodium chloride 0.9% 1,000 ML 30 ML IV (09:13)
--- NOTE | 2020-07-21 09:34 | ANES.PREANE2 ---
Pre-Anesthetic Assessment Pre-Anesthetic Assessment: Height/Weight: Height 1.75 m Weight 71.668 kg Temp Pulse Resp BP Pulse Ox 97.0 F L 69 20 H 116/95 97 07/21/20 08:57 07/21/20 08:57 07/21/20 08:57 07/21/20 08:57 07/21/20 08:57 Preop Diagnosis: hx polops Proposed Procedure: Operation Date: 07/21/20 10:00 Proposed Procedures p Colonoscopy 25169 z85.038(Not Applicable) - Mian Krueger MD Familial anesthetic complications: None Was Beta Sarah taken within 24 hours: Yes Last intake: Intake NPO > 8 hrs Last Liquid Date 07/20/20 Last Solid Date 07/19/20 Social: Social History: No alcohol and No tobacco Exam: Pre-Anes Outpt Exam: alert, oriented x 3, clear to auscultation bilaterally and regular rate & rhythm Airway: Cervical ROM: WNL MP: 3 Dentition: False (Uppers) Pulmonary: Pulmonary: COPD CV/HEM: CV/HEM: HTN Metabolic: Metabolic: Hyperlipidemia Anesthetic Plan: ASA status: 3 Anesthesia: MAC Risk of > 500 ml blood loss (7ml/kg in children): No Meds/Allergies Current Medications: Current Medications Generic Name Dose Route Start Last Admin Trade Name Freq PRN Reason Stop Dose Admin Sodium Chloride 1,000 mls @ 30 ml s/hr 07/21/20 09:00 07/21/20 09:13 Sodium Chloride 0.9% IV 07/22/20 08:59 30 mls/hr .Q24H JERMAIN Administration PFSH Anesthesia PFSH: Medical History Benign neoplasm of unspecified adrenal gland Carcinoma in situ of colon COPD (chronic obstructive pulmonary disease) Cystic disease of liver Elevated prostate specific antigen [PSA] Frequent PVCs Gastro-esophageal reflux disease without esophagitis Hearing loss Hyperlipidemia, unspecified Hypertension Lower urinary tract symptoms (LUTS) Pain, joint, knee, left Presence of cardiac pacemaker 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 Sebaceous cyst Sick sinus syndrome Solitary pulmonary nodule Surgical History History of colon resection History of eye surgery 7 surgeries History of knee surgery right Family History Father , at age 71 Stomach cancer Mother , at age 99 Colon cancer Other Cancer Social History Smoking and tobacco status: former smoker Quit status (tobacco): has quit using tobacco Year quit tobacco: 1997 - 2PPD x 40 Years Second hand smoke exposure: No Smoking risk assessment/counseling performed?: No Alcohol intake: never Lives independently: Yes Household members: none Marital status: Single service: Yes Current occupational status: retired History of recent travel: No Current gender identity: Male Data Anesthesia Cardiac Studies: No Data to Display
--- NOTE | 2020-07-21 09:57 | W.PM.OPSUD ---
Surgery/Procedure H&P Update DATE OF PROCEDURE: July 21, 2020 DATE H&P PERFORMED: 07/13/20 PREOP DIAGNOSIS: hx polops PLANNED PROCEDURE: Operation Date: 07/21/20 10:00 Proposed Procedures p Colonoscopy 95776 z85.038(Not Applicable) - Mian Krueger MD
[2020-07-21 11:04] VITALS: BP 100/67; PULSE 66; RESP 12; TEMP 36.1; O2SAT 92
[2020-07-21 11:15] VITALS: BP 135/80; PULSE 64; RESP 16; O2SAT 97
--- NOTE | 2020-07-21 17:14 | ANE.PACU2 ---
Inpatient post-anesthesia follow up: Airway intact: Yes Vital signs: Temperature 97 F Pulse Rate 64 Respiratory Rate 16 Blood Pressure 135/80 Pulse Oximetry 97 Oxygen Delivery Me thod Room Air Oxygen Flow Rate Fraction of Inspir ed Oxygen Hydration adequate: Yes Nausea and vomiting: No Pain level: 1 Mental status: Baseline
== END 2020-07-21 11:34 | disposition home or self-care (01) ==
PROVIDERS: PCP Family Medicine; Visit Provider Internal Medicine
PROC: 0DJD8ZZ Inspection of Lower Intestinal Tract, Via Natural or Artificial Opening Endoscopic (ICD-10-PCS; CPT 45378; principal; 2020-07-21 10:00)
DX: Z85.038 Personal history of other malignant neoplasm of large intestine (principal); J44.9 Chronic obstructive pulmonary disease, unspecified; E78.5 Hyperlipidemia, unspecified; I10 Essential (primary) hypertension; Z85.46 Personal history of malignant neoplasm of prostate; Z87.891 Personal history of nicotine dependence; K63.5 Polyp of colon; K57.30 Diverticulosis of large intestine without perforation or abscess without bleeding
CPT/HCPCS: 12345; 45385; 88305; J2704; J7030

== ENCOUNTER 2020-07-24 05:39 | Outpatient (CLI) | payer OTHER, SELFPAY ==
--- NOTE | 2020-07-24 09:53 | ONC FU_ITS ---
Dr. Saab follow up note Patient: Jake Jarrell Unit #: [id number]: 1940 Dicatated By: Andrae Saab M.D.Date of Visit:Jul 24, 2020 Onc Med Follow-up/Prog Note History of Present Illness: Mr. Jarrell is a 80-year-old gentleman with history of elevated PSA since August 2018. During follow-up, his PSA had gone up to 21.3 and repeat PSA on 04/05/2019 was 17.76. 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, 3 cores (right mid 40%, right lateral base 90%, right lateral mid 20%0 Ashish score 3+4, 3 cores (left lateral base 45%, left lateral apex 30%, right base 20%) with Benge score 4+4 and 2 cores (left lateral mid 50%, left base 15% )with Ashish score 4+5 Left seminal vesicle, Ashish score 4+4 CT scan of chest abdomen pelvis showed large lymph nodes along stanley prostatic at and left greater than right seminal vesicles, markedly enlarged pelvic sidewall lymph nodes the largest in the right measuring 2.9 x 2.5 cm consistent with metastatic disease, enlarged left periaortic lymph nodes and markedly enlarged left proximal common iliac chain lymph nodes, left common iliac lymph node measured 2.5 cm. Noncalcified nodule right middle lobe measuring 7 mm and additional noncalcified nodule right lower lobe of lung near diaphragm measuring 9 mm Bone scan showed increase activity in the right side of L4 vertebral body and in the left hip. Left hip x-ray negative for evidence of bone metastatic disease Lumbar spine x-ray showed arthritic changes on this right side of L4-L5 vertebral bodies, no metastatic disease. CT PET scan done on 10/09/2019 showed hypermetabolic lesion in the right prostate gland, consistent with primary. Bilateral pelvic and retroperitoneal lymphadenopathy consistent with metastatic disease. No evidence of osseous metastatic disease or pulmonary metastatic disease. The patient was started on bicalutamide by Dr. Forrester on 09/20/2019 Patient denies any bony pains, denies any hematuria or dysuria, denies any hemoptysis or hematemesis, denies any jaundice, denies any nausea vomiting or fever, denies any weight loss. in January 2020 , his Casodex was stopped . He did have consultation with radiation oncology at that time. Dr Catherine did not recommend radiation at this time. He advised Mr. Jarrell that he would wait until he begins having pain or his PSA begins to rise steadily again or imaging indicates the need for radiation. Mr. Jarrell has continued with the Zoladex and tolerated this well. 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 Also complaining of dry skin. Denies any hemoptysis or hematemesis denies any hot flashes but rather cold flashes. Denies any bony pains denies any dysuria or hematuria. Tolerating Zoladex well otherwise Medications: amLODIPine Besylate 1 Tablet (of 5 mg) Oral daily, Metoprolol Tartrate 1 Tablet (of 25 mg) Oral daily, Omeprazole 1 Tablet (of 20 mg) Tablet, enteric coated Oral daily, Rosuvastatin Calcium 1 Tablet (of 10 mg) Oral daily, Tamsulosin HCl 1 Tablet (of 0.4 mg) Capsule Oral b.i.d., Trelegy Ellipta 1 Puff(s) (of 100-62.5-25 mcg/inh) Aerosol Powder, Breath Activated Inhalation daily Allergies: Oxaliplatin and Simvastatin. Review of Systems: Constitutional - Appetite is good and weight is stable. No fever, chills, hot flashes, or night sweats. Energy level is good but Pt fatigues easily, ENMT - Positive for sinus congestion/drainage. No mouth sores. No sore throat or difficulty swallowing, Hematologic/Lymphatic - Positive for easy bruising, Respiratory - Positive for shortness of breath. No cough. No pleuritic pain or hemoptysis, Cardiovascular - No angina pain. No palpitations, Gastrointestinal - No nausea or vomiting. No heartburn or acid reflux. No diarrhea or constipation. No blood in the stool or black stools, Genitourinary (M) - No dysuria or hematuria. Positive for urinary frequency. No urgency or incontinence, Musculoskeletal - No joint or bone pain, Neurologic - No headache or dizziness. Pt reports occasional numbness/tingling in extremities, Psychiatric - No anxiety or depression. No insomnia. Vital Signs: Performed on Jul 24, 2020 09:07 Height - 69.00 in Weight - 158.4 lbs (LOW) BSA - 1.87 sq.m BMI - 23.39 Temperature - 97.1 F (LOW) Pulse - 98 /min Respiration - 18 /min BP - 139/85 mm(hg) O2 Sat - 98 % Pain - 0 Performance Status: 1 - No physically strenuous activity, but ambulatory and able to carry out light or sedentary work (e.g. office work, light house work). (ECOG) Physical Examination: ENMT - No mouth sores, no thrush, no jaundice, Respiratory - Poor air entry otherwise clear, Cardiovascular - Regular rate and rhythm of heart, Abdomen - Soft, bowel sounds present, Extremities - No visible edema or rash. 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, 3 cores with Benge score 3+4, 3 cores with Ashish score 4+4, and 2 cores with Benge score 4+5, and seminal vesicles involvement with Benge score 4+4 CT scan of chest abdomen pelvis showed large lymph nodes along the periprostatic fat and left greater than right seminal vesicles, Markedly enlarged pelvic sidewall lymph nodes the largest in the right measuring 2.9 x 2.5 cm consistent with metastatic disease Enlarged left periaortic lymph nodes and marked enlarged left proximal common iliac chain lymph nodes, left common iliac chain lymph nodes measuring about 2.5 cm, Noncalcified nodule right middle lobe measuring 7 mm, additional noncalcified nodule right lower lobe of lung near diaphragm measuring 9 mm Bone scan showed increased activity in the right side of L4 vertebral body and in the left hip Left hip x-ray showed no evidence of bony metastatic disease Lumbar spine x-ray shows arthritic changes in right side of L4/L5 vertebral bodies, no metastatic disease. History of sick sinus syndrome now with pacemaker Mr Jarrell is currently being treated with every 3 month Zoladex single agent. He began the Zoladex on 10/18/2019. He has tolerated it well. He is off Casodex as of January. Plan: Discussed with patient regarding labs white blood count 9.1 hemoglobin 14 hematocrit 42.5 platelets 241,000 CMP within normal limits and PSA 2.67 compared to 2.80 on April 20, 2020 Clinically, patient is doing well with no new signs symptoms, tolerating Zoladex well but with expected side effects e.g. cold flashes. And generalized weakness and fatigue which could be multifactorial. At this point we will proceed with his next 3 monthly dose of Zoladex today and then return to clinic in 3 months with PSA/testosterone level. Signed By: Andrae Saab M.D. <<Signature on File>>
[2020-07-24] MEDS: lidocaine 1% INJ 20 mL INJECTION (10:07)
[2020-07-24] MEDS: goserelin acetate 10.8 mg Implant IM (10:16)
== END 2020-07-24 05:40 | disposition home or self-care (01) ==
LOC: ONCMED 05:40
PROVIDERS: PCP Family Medicine; Visit Provider Internal Medicine Hematology & Oncology
DX: C61 Malignant neoplasm of prostate (principal); R53.1 Weakness; R53.83 Other fatigue; Z79.818 Long term (current) use of other agents affecting estrogen receptors and estrogen levels; Z95.0 Presence of cardiac pacemaker
CPT/HCPCS: 96372; 96402; 99214; J9202

== ENCOUNTER 2020-07-25 10:59 | Outpatient (CLI) | payer OTHER, SELFPAY ==
--- NOTE | 2020-07-25 11:30 | CT_ITS ---
WS: [id number] CT scan of the chest without IV contrast, additional two-dimensional coronal and sagittal reconstruct ion was performed. 07/25/2020 Clinical Data: Pulmonary nodule Comparison: None. DLP: 862.[address] scans at [facility] use at least one of these dose optimization techniques: automat ed exposure control; mA and/or kV adjustment per patient size (includes targeted exams where dose is matched to clinical indication); or iterative reconstruction. Findings: There is a 0.7 cm nodule in the right middle lobe with a smooth border which is probably benign. It i s located on axial image 46 of 76. No other nodules are seen. There are no masses or effusions. No pn eumonia or pneumothorax is present. Pacemaker leads are present in the heart. There are coronary anjali ry calcifications. The heart size is normal with no pericardial effusion. There are emphysematous loren nges throughout the lungs, the worst of which are in the upper lobes. The pulmonary arterial system a nd thoracic aorta demonstrate no abnormalities or dilatations. There is no axillary or significant me diastinal adenopathy. The upper abdomen shows the liver has a 2.0 cm low-density lesion in the right lobe which is probably a cyst. There are splenic calcifications. The pancreas, gallbladder and adrenal glands are normal. T here is a right renal central calcification measuring 0.4 cm. There is sclerotic change in the anteri or aspect of the L2 vertebral body suspicious for an osteoblastic metastasis. CT/CT chest wo con [id number] Impression: 1. Probable benign nodule in right middle lobe seen best on image 46 of 76 and recommend 6 month follow-up with CT chest. 2. Emphysematous change throughout both lungs. 3. Right renal calculus. 4. Sclerotic change in the anterior aspect of L2 suspicious for metastatic dise ase.
== END 2020-07-25 11:00 | disposition home or self-care (01) ==
PROVIDERS: PCP Family Medicine; Visit Provider Internal Medicine Critical Care Medicine
DX: J43.9 Emphysema, unspecified (principal); R91.1 Solitary pulmonary nodule; N20.0 Calculus of kidney; M48.8X6 Other specified spondylopathies, lumbar region
CPT/HCPCS: 71250

== ENCOUNTER 2020-08-11 06:00 | Outpatient (RCR) | payer OTHER, SELFPAY | END 2020-09-10 23:59 | disposition home or self-care (01) | LOC: PULRHB 06:00 | PROVIDERS: PCP Family Medicine; Visit Provider Internal Medicine Critical Care Medicine | DX: J44.9 Chronic obstructive pulmonary disease, unspecified (principal) | CPT/HCPCS: G0424 ==

== ENCOUNTER → 2020-08-23 14:48 | Outpatient (BNVA) | payer OTHER, SELFPAY | PROVIDERS: PCP Family Medicine; Visit Provider Internal Medicine Critical Care Medicine | DX: J44.9 Chronic obstructive pulmonary disease, unspecified (principal) | CPT/HCPCS: 87635 ==

== ENCOUNTER 2020-08-28 07:45 | Outpatient (CLI) | payer OTHER, SELFPAY ==
[2020-08-28 08:35] VITALS: BP 133/81
== END 2020-08-28 07:46 | disposition home or self-care (01) ==
PROVIDERS: PCP Family Medicine; Visit Provider Internal Medicine Critical Care Medicine
DX: J44.9 Chronic obstructive pulmonary disease, unspecified (principal)
CPT/HCPCS: 94618

== ENCOUNTER 2020-08-31 20:00 | Outpatient (CLI) | payer OTHER, SELFPAY | END 2020-08-31 20:01 | disposition home or self-care (01) | LOC: SLEEP 09-01 08:49 | PROVIDERS: PCP Family Medicine; Visit Provider Family Medicine | DX: R06.83 Snoring (principal); R53.83 Other fatigue; G47.33 Obstructive sleep apnea (adult) (pediatric) | CPT/HCPCS: 95810 ==

== ENCOUNTER 2020-09-11 06:00 | Outpatient (RCR) | payer OTHER, SELFPAY | END 2020-10-08 23:59 | disposition home or self-care (01) | LOC: PULRHB 06:00 | PROVIDERS: PCP Family Medicine; Visit Provider Internal Medicine Critical Care Medicine | DX: J44.9 Chronic obstructive pulmonary disease, unspecified (principal) | CPT/HCPCS: G0424 ==

== ENCOUNTER 2020-10-02 20:00 | Outpatient (CLI) | payer OTHER, SELFPAY | END 2020-10-02 20:01 | disposition home or self-care (01) | LOC: SLEEP 10-03 09:28 | PROVIDERS: PCP Family Medicine; Visit Provider Internal Medicine Critical Care Medicine | DX: J44.9 Chronic obstructive pulmonary disease, unspecified (principal); G47.33 Obstructive sleep apnea (adult) (pediatric) | CPT/HCPCS: 95811 ==

== ENCOUNTER 2020-10-09 06:00 | Outpatient (RCR) | payer OTHER, SELFPAY | END 2020-11-08 23:59 | disposition home or self-care (01) | LOC: PULRHB 06:00 | PROVIDERS: PCP Family Medicine; Visit Provider Internal Medicine Critical Care Medicine | DX: J44.9 Chronic obstructive pulmonary disease, unspecified (principal) | CPT/HCPCS: G0424 ==

== ENCOUNTER 2020-10-20 11:10 | Outpatient (CLI) | payer OTHER, SELFPAY ==
[2020-10-20 12:54] LABS: Testosterone Total 2.5 ng/dL (193-740)
== END 2020-10-20 11:11 | disposition home or self-care (01) ==
PROVIDERS: PCP Family Medicine; Visit Provider Internal Medicine Hematology & Oncology
DX: C61 Malignant neoplasm of prostate (principal)
CPT/HCPCS: 84153; 84403

== ENCOUNTER 2020-10-25 05:42 | Outpatient (CLI) | payer OTHER, MEDICARE, SELFPAY ==
--- NOTE | 2020-10-25 10:51 | ONC FU_ITS ---
Dr. Saab follow up note Patient: Jake Jarrell Unit #: [id number]: 1940 Dicatated By: Andrae Saab M.D.Date of Visit:Oct 25, 2020 Onc Med Follow-up/Prog Note History of Present Illness: Mr. Jarrell is a 80-year-old gentleman with history of elevated PSA since August 2018. During follow-up, his PSA had gone up to 21.3 and repeat PSA on 04/05/2019 was 17.76. 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, 3 cores (right mid 40%, right lateral base 90%, right lateral mid 20%0 Ashish score 3+4, 3 cores (left lateral base 45%, left lateral apex 30%, right base 20%) with Farmington score 4+4 and 2 cores (left lateral mid 50%, left base 15% )with Ashish score 4+5 Left seminal vesicle, Ashish score 4+4 CT scan of chest abdomen pelvis showed large lymph nodes along stanley prostatic at and left greater than right seminal vesicles, markedly enlarged pelvic sidewall lymph nodes the largest in the right measuring 2.9 x 2.5 cm consistent with metastatic disease, enlarged left periaortic lymph nodes and markedly enlarged left proximal common iliac chain lymph nodes, left common iliac lymph node measured 2.5 cm. Noncalcified nodule right middle lobe measuring 7 mm and additional noncalcified nodule right lower lobe of lung near diaphragm measuring 9 mm Bone scan showed increase activity in the right side of L4 vertebral body and in the left hip. Left hip x-ray negative for evidence of bone metastatic disease Lumbar spine x-ray showed arthritic changes on this right side of L4-L5 vertebral bodies, no metastatic disease. CT PET scan done on 10/09/2019 showed hypermetabolic lesion in the right prostate gland, consistent with primary. Bilateral pelvic and retroperitoneal lymphadenopathy consistent with metastatic disease. No evidence of osseous metastatic disease or pulmonary metastatic disease. The patient was started on bicalutamide by Dr. Forrester on 09/20/2019 Patient denies any bony pains, denies any hematuria or dysuria, denies any hemoptysis or hematemesis, denies any jaundice, denies any nausea vomiting or fever, denies any weight loss. in January 2020 , his Casodex was stopped . He did have consultation with radiation oncology at that time. Dr Catherine did not recommend radiation at this time. He advised Mr. Jarrell that he would wait until he begins having pain or his PSA begins to rise steadily again or imaging indicates the need for radiation. Mr. Jarrell has continued with the Zoladex and tolerated this well. Came for follow-up, denies any specific complaints, no nausea or vomiting no diarrhea or constipation, no new bony pains, no dysuria or hematuria, tolerating Zoladex well otherwise Medications: amLODIPine Besylate 1 Tablet (of 5 mg) Oral daily, Metoprolol Tartrate 1 Tablet (of 50 mg) Oral daily, Montelukast Sodium (10 mg) Tablet Oral at bedtime, Omeprazole 1 Tablet (of 20 mg) Tablet, enteric coated Oral daily, Rosuvastatin Calcium 1 Tablet (of 10 mg) Oral daily, Tamsulosin HCl 1 Tablet (of 0.4 mg) Capsule Oral b.i.d., Trelegy Ellipta 1 Puff(s) (of 100-62.5-25 mcg/inh) Aerosol Powder, Breath Activated Inhalation daily Allergies: Oxaliplatin and Simvastatin. Review of Systems: Review of Systems is not available for this patient. Vital Signs: Performed on Oct 25, 2020 10:16 Height - 69.00 in Weight - 157.2 lbs (LOW) BSA - 1.86 sq.m BMI - 23.21 Temperature - 97.8 F (LOW) Pulse - 69 /min Respiration - 18 /min BP - 135/90 mm(hg) O2 Sat - 98 % Pain - 0 Fatigue - 0 Performance Status: 1 - No physically strenuous activity, but ambulatory and able to carry out light or sedentary work (e.g. office work, light house work). (ECOG) Physical Examination: ENMT - No mouth sores, no thrush, no jaundice, Respiratory - Lungs are clear to auscultation, Cardiovascular - Regular rate and rhythm of heart, Abdomen - Soft, bowel sounds present, Extremities - No visible edema. Lab/Imaging: Most recent lab results are not available for this patient. 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, 3 cores with Ashish score 3+4, 3 cores with Ashish score 4+4, and 2 cores with Farmington score 4+5, and seminal vesicles involvement with Farmington score 4+4 CT scan of chest abdomen pelvis showed large lymph nodes along the periprostatic fat and left greater than right seminal vesicles, Markedly enlarged pelvic sidewall lymph nodes the largest in the right measuring 2.9 x 2.5 cm consistent with metastatic disease Enlarged left periaortic lymph nodes and marked enlarged left proximal common iliac chain lymph nodes, left common iliac chain lymph nodes measuring about 2.5 cm, Noncalcified nodule right middle lobe measuring 7 mm, additional noncalcified nodule right lower lobe of lung near diaphragm measuring 9 mm Bone scan showed increased activity in the right side of L4 vertebral body and in the left hip Left hip x-ray showed no evidence of bony metastatic disease Lumbar spine x-ray shows arthritic changes in right side of L4/L5 vertebral bodies, no metastatic disease. History of sick sinus syndrome now with pacemaker Mr Jarrell is currently being treated with every 3 month Zoladex single agent. He began the Zoladex on 10/18/2019. He has tolerated it well. He is off Casodex as of January. Plan: Discussed with patient regarding his labs PSA 3.28 compared to 2.67 on July 19, 2020 and prior to that 2.8 on April 20, 2020. Clinically, patient is doing well with no new signs symptoms suggestive of recurrence of disease but his follow-up labs shows mild increase in PSA now 3.28 compared to 2.67 on July 19, 2020. Patient is on 3 monthly Zoladex, tolerating well, will proceed with next dose today and then return to clinic in 3 months with a PSA. If there is a progression, will consider work-up Signed By: Andrae Saab M.D. <<Signature on File>>
[2020-10-25] MEDS: lidocaine 1% INJ 20 mL INJECTION (11:05)
[2020-10-25] MEDS: goserelin acetate 10.8 mg Implant IM (11:15)
== END 2020-10-25 05:43 | disposition home or self-care (01) ==
LOC: ONCMED 05:45
PROVIDERS: PCP Family Medicine; Visit Provider Internal Medicine Hematology & Oncology
DX: C61 Malignant neoplasm of prostate (principal); R97.20 Elevated prostate specific antigen [PSA]; R59.0 Localized enlarged lymph nodes; R91.1 Solitary pulmonary nodule; I49.5 Sick sinus syndrome; Z95.0 Presence of cardiac pacemaker; Z79.818 Long term (current) use of other agents affecting estrogen receptors and estrogen levels
CPT/HCPCS: 96372; 96402; 99214; J9202

== ENCOUNTER 2021-01-16 08:50 | Emergency (ER) | payer OTHER, MEDICARE, SELFPAY ==
[2021-01-16 09:14] VITALS: BP 150/98; PULSE 73; RESP 18; TEMP 36.7; O2SAT 94; BMI 22.8
--- NOTE | 2021-01-16 09:29 | W.ED.MALEGU ---
HPI - Male Genitourinary General: Chief complaint: Urogenital-Male Stated complaint: blood in [facility] Time Seen by Provider: 01/16/21 08:54 PFSH ED PFSH: Medical History Benign neoplasm of unspecified adrenal gland Carcinoma in situ of colon COPD (chronic obstructive pulmonary disease) Cystic disease of liver Elevated prostate specific antigen [PSA] Frequent PVCs Gastro-esophageal reflux disease without esophagitis Hearing loss Hyperlipidemia, unspecified Hypertension Lower urinary tract symptoms (LUTS) Pain, joint, knee, left Presence of cardiac pacemaker 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 Sebaceous cyst Sick sinus syndrome Solitary pulmonary nodule Surgical History History of colon resection History of eye surgery 7 surgeries History of knee surgery right Family History Father , at age 71 Stomach cancer Mother , at age 99 Colon cancer Other Cancer Social History Smoking and tobacco status: former smoker Quit status (tobacco): has quit using tobacco Year quit tobacco: 1997 - 2PPD x 40 Years Second hand smoke exposure: No Smoking risk assessment/counseling performed?: No Alcohol intake: never Desire information about alcohol rehabilitation?: No Counseling given: No Desire information about substance/drug rehabilitation?: No Counseling given: No Lives independently: Yes Household members: none Marital status: Single service: Yes Current occupational status: retired History of recent travel: No Current gender identity: Male Course Vital Signs: Vital signs: Vital Signs Temperature 98.1 F 01/16/21 09:14 Pulse Rate 73 01/16/21 09:14 Respiratory Rate 18 01/16/21 09:14 Blood Pressure 150/98 01/16/21 09:14 Pulse Oximetry 94 01/16/21 09:14 Discharge Plan Discharge Prescriptions: No Action rosuvastatin 10 mg tablet 10 mg PO DAILY Qty: 90 RF: 3 amlodipine 2.5 mg tablet 5 mg PO DAILY RF: 0 montelukast 10 mg tablet 10 mg PO DAILY RF: 0 Trelegy Ellipta 100-62.5-25 mcg blister with device 1 inh INHALATION Q24H 30 Days Qty: 28 RF: 6 ipratropium-albuterol 0.5 mg-3 mg(2.5 mg base)/3 mL solution for nebulization 3 ml inhalation Q4H Qty: 540 RF: 3 metoprolol succinate 50 mg tablet extended release 24 hr 50 mg PO DAILY Qty: 90 RF: 3 tamsulosin 0.4 mg capsule 0.4 mg PO BEDTIME RF: 0 Coding Level of Care Code ED 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
--- NOTE | 2021-01-16 09:30 | CT_ITS ---
WS: [id number] CT ABDOMEN AND PELVIS WITH CONTRAST HISTORY: epigastric pain with radiation into back; hematuria TECHNIQUE: Imaging performed of the abdomen and pelvis with IV contrast. Single phase imaging of the abdomen. Coronal and sagittal reformats are submitted. All CT scans at [facility] use at least one of these dose optimization techniques: automated exposure control; mA and/or kV adjustment per patient size (includes targeted exams where dose is matched to clinical indication); or iterativ e reconstruction. IV CONTRAST: Visipaque 320; 95 mL IV. Oral contrast: No DLP: 1127.18 mGy.cm COMPARISON: 09/10/2019 Lower thorax: Severe emphysema. Calcified and noncalcified nodules at the RIGHT lung base. Stable and negative on PET/CT. Heart is normal size. Moderate hiatal hernia. Liver/biliary system: Normal size liver. Lobulated cyst with a maximum diameter of 2.1 cm in the late ral RIGHT lobe. There is an additional too small to characterize hypodensity in the inferior RIGHT lo be. Gallbladder: Normal. No gallstones or wall thickening. No pericholecystic fluid. Pancreas: Normal size pancreas and pancreatic duct. No adjacent inflammation. Spleen: Normal size spleen with several granulomata. Adrenal glands: Bilateral adrenal nodules or low-attenuation and likely adenomas. No change since 08/13. The largest nodule measures 1.8 cm on the RIGHT. Right kidney: Mild perinephric stranding with delayed excretion. There is moderate RIGHT hydrouretero nephrosis. Nonobstructing calcification measuring 7 mm in the renal pelvis. RIGHT ureter is dilated a nd tortuous throughout its course. Soft tissue nodules with enhancement within the distal ureter at t he UV junction. There is a lobulated soft tissue mass along the posterior urinary bladder which is co ntiguous with the prostate gland. This soft tissue enhancing mass extends into the ureter and is caus ing the obstruction. Left kidney: No obstruction or mass. Distal LEFT ureter is closely associated with the soft tissue en hancing mass in the urinary bladder. At this time there is no obstruction of the ureter. Aorta: Moderate atherosclerosis with no aneurysm. Extensive calcification in the splenic artery. Heav y calcification of the origin of the renal arteries. Lymphadenopathy: Large pelvic lymph nodes described on 09/10/2019 are much smaller in size. Largest ly mph node along the RIGHT iliac chain is 1.6 cm in diameter, decreased from 2.5 cm. There are addition al smaller pelvic lymph nodes. Free fluid: None. GI tract: Marked tortuosity of the colon with constipation. Surgical anastomotic site at the cecum. N o obstruction. Diverticulosis without diverticulitis. Abdominal wall: Unremarkable abdominal wall. No hernia. Pelvis: Moderately well distended urinary bladder. There is a lobulated enhancing soft tissue mass al mayra the posterior urinary bladder which is contiguous with the prostate gland. This mass extends over a width of 5.3 cm and a diameter of 1.6 cm. Mass extends to obstruct the distal RIGHT ureter. Soft t issue mass extends into the distal RIGHT ureter. Mass is also close to the orifice of the LEFT ureter but not causing obstruction. Bones: Advanced degenerative changes in the spine. No definite osteoblastic or osteolytic disease. Mi ld increased sclerosis within the L2 vertebral body. CT/CT abdomen pelvis w con* [id number] IMPRESSION: 1. Moderate RIGHT hydroureteronephrosis secondary to a soft tissue mass obstru cting the distal RIGHT ureter and extending into the distal RIGHT ureter. 2. Lobulated soft tissue mass extends along the base of the urinary bladder an d is contiguous with the prostate gland and extends to involve the orifices of the ureters. Soft tissue mass may all be related to prostate carcinoma. Superim posed transitional carcinoma should also be included. Recommend follow-up with urology. 3. Bilateral iliac chain and pelvic lymph nodes. These lymph nodes have decrea sed in size since 09/10/2019. There are a few new RIGHT pelvic lymph nodes which are subcentimeter. Early recurrent metastatic disease should be considered. 4. Sigmoid diverticulosis without acute diverticulitis. 5. Bilateral adrenal adenomas. 6. Hepatic cysts.
--- NOTE | 2021-01-16 09:30 | ECG_ITS ---
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 Measurements Intervals [place] Rate: 70 P: 103 PA: 195 QRS: 62 QRSD: 66 T: 69 QT: 384 QTc: 415 Interpretive Statements SINUS RHYTHM WITH OCCASIONAL VENTRICULAR PREMATURE COMPLEXES SEPTAL MYOCARDIAL INFARCTION [40+ ms Q WAVE IN V1/V2], PROBABLY OLD Compared to ECG 10/05/2018 07:26:13 Ventricular premature complex(es) now present Myocardial infarct finding now present T-wave abnormality no longer present Electronically Signed On 01-16-2021 17:07:52 CDT by Zack Miller M.D. [id number]
--- NOTE | 2021-01-16 09:32 | ED_ITS ---
HPI - Abdominal Pain General: Chief Complaint: Urogenital-Male Stated Complaint: blood in [facility] Time Seen by Provider: 01/16/21 08:54 Source: patient Mode of arrival: ambulatory Limitations: no limitations History of Present Illness: HPI narrative: Patient is a nice 80-year-old gentleman who presents to ED today with a main complaint of hematuria that he initially noticed yesterday evening. He tells me he has never had issues with hematuria previously. He is not complaining of dysuria, frequency, urgency. Patient does have a history of prostate cancer. He is currently under the care of Dr. Saab. Taking Zoladex implantable q 3mo. When asked patient initially tells me he is not having any abdominal pain however after speaking further to him he tells me he began noticing some epigastric pain radiating into his back specifically on December 28. He tells me he believes his pain was related to starting his CPAP. He states he discontinued his CPAP 4 days later secondary to the discomfort in his abdomen and back. He states the pain has improved since January 01 however is still present. He tells me pain is constant and seems to be alleviated by placing a heating pad on his abdomen and back. He states pain is sometimes worsened with movement. He does not complain of chest pain. Patient has COPD and is not complaining of worsening shortness of breath. No fevers. He does not complain of flank pain. MD elicited complaint: abdominal pain and other (hematuria) Pertinent past history: other (prostate cancer) Onset (ago): day(s) (yesterday evening-hematuria; December 28 for abdominal pain) Pain Consistency: constant Location: Epigastric Radiation: none Migration to: no migration Exacerbating factors: movement Relieving factors: other (heat) Associated Symptoms: Reports hematuria; Denies belching, bloating, change in bowel habits, change in stool character, chills, diarrhea, dysuria, fever(s), heartburn, hematochezia, hematemesis, melena, nausea, syncope and vomiting Review of Systems Const: Denies: fever(s), chills, body aches, change in appetite, change in weight, fatigue, malaise or night sweats Eyes: Denies: change in vision or blurry vision Card: Reports: dyspnea on exertion (chronic secondary to COPD); Denies: chest pain, palpitations, irregular heart rhythm, edema, swelling of feet/ankles, lightheadedness, syncope, pre-syncope or leg pain with exertion Resp: Reports: dyspnea (chronic COPD-at baseline per patient); Denies: pain on inspiration, change in phlegm color, hemoptysis or chest conge stion GI: Reports: abdominal pain; Denies: nausea, vomiting, hematemesis, dysphagia, heartburn, early satiety, diarrhea, bloating, belching, change in bowel habits, change in stool character, hematochezia, melena or white/light colored stool : Reports: hematuria; Denies: flank pain, difficulty urinating, dysuria, urinary frequency, urinary urgency, urinary hesitancy, urinary dribbling or change in urine stream Musc: Reports: back pain; Denies: neck pain, extremity pain, extremity swelling, joint pain or joint swelling Skin/Breast: Denies: rash Neuro: Denies: headache(s), numbness in extremities, weakness in extremities or sensory changes PFSH ED PFSH: Medical History (Updated 01/16/21 @ 11:49 by MEY Keyes) Benign neoplasm of unspecified adrenal gland Carcinoma in situ of colon COPD (chronic obstructive pulmonary disease) Cystic disease of liver Elevated prostate specific antigen [PSA] Frequent PVCs Gastro-esophageal reflux disease without esophagitis Hearing loss Hyperlipidemia, unspecified Hypertension Lower urinary tract symptoms (LUTS) Pain, joint, knee, left Presence of cardiac pacemaker 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 Sebaceous cyst Sick sinus syndrome Solitary pulmonary nodule Surgical History History of colon resection History of eye surgery 7 surgeries History of knee surgery right Family History Father , at age 71 Stomach cancer Mother , at age 99 Colon cancer Other Cancer Social History Smoking and tobacco status: former smoker Quit status (tobacco): has quit using tobacco Year quit tobacco: 1997 - PD x 40 Years Second hand smoke exposure: No Smoking risk assessment/counseling performed?: No Alcohol intake: never Desire information about alcohol rehabilitation?: No Counseling given: No Desire information about substance/drug rehabilitation?: No Counseling given: No Lives independently: Yes Household members: none Marital status: Single service: Yes Current occupational status: retired History of recent travel: No Current gender identity: Male Physical Exam Const: COMMON NORMALS: no acute distress, average body habitus, patient oriented x3, no limitations, healthy appearing, alert and well nourished GENERAL APPEARANCE: cooperative ORIENTATION/CONSCIOUSNESS: Yes awake, Yes oriented to person, Yes oriented to place and Yes oriented to time Chest: COMMONS NORMALS: normal inspection of the chest and normal palpation of entire chest wall Resp: COMMON NORMALS: normal respiratory effort EFFORT & INSPECTION: Yes able to speak in complete sentences Cardio: COMMON NORMALS: regular rate and regular rhythm RATE: regular rate RHYTHM: regular rhythm GI: COMMON NORMALS: Normal to inspection, nondistended, normoactive bowel sounds present, Soft to palpation, No hepatosplenomegaly present and no masses INSPECTION: Yes normal to inspection PALPATION: Yes Soft to palpation, Yes Tenderness to palpation present (GI) (mild epigastric ) and Yes No hepatosplenomegaly present : COMMON NORMALS: Yes no CVA tenderness BLADDER/KIDNEY EXAM: Yes no CVA tenderness Back/Pelvis: COMMON NORMALS: no CVA tenderness, thoracic and lumbar spine normal to inspection, thoraco-lumbar ROM normal and straight leg raise negative bilaterally THORACIC SPINE/UPPER BACK: Yes normal to inspection, Yes thoracic ROM normal, Yes thoracic spinal tenderness (mid t spine) and Yes paraspinal muscle tenderness (bilateral mid t spine) LUMBAR SPINE/LOWER BACK: Yes normal to inspection, Yes lumbar ROM normal, No lumbar spinal tenderness and No paraspinal muscle tenderness Extremity: COMMON NORMALS: normal to inspection and full ROM GENERAL: Yes normal exam except as noted Neuro: ODILON COMA SCALE: document GCS findings Odilon coma scale eye opening: Spontaneous [place] coma scale verbal response: Orientated Odilon coma scale motor response: Obey commands [place] coma scale total score: 15 COMMON NORMALS: patient oriented x3, moves all extremities, no focal motor deficits, no sensory deficits noted and gait normal SENSORIUM/ORIENTATION: Yes alert, Yes oriented to person, Yes oriented to place and Yes oriented to time Skin: COMMON NORMALS: no rashes or lesions noted GENERAL SKIN EXAM: no rashes or lesions noted Course Consultations: Consultation #1: Dr. Forrester-discussed CT report and labs/UA findings and he will see patient in office tomorrow or Thurs for further evaluation Vital Signs: Vital signs: Vital Signs Temperature 98.1 F 01/16/21 09:14 Pulse Rate 73 01/16/21 09:14 Respiratory Rate 18 01/16/21 09:14 Blood Pressure 150/98 01/16/21 09:14 Pulse Oximetry 94 01/16/21 09:14 MDM - Abdominal Pain MDM Narrative: Medical decision making narrative: Patient is a nice 80-year-old male here with a main complaint of hematuria that started yesterday. After speaking to patient further he has had 2 to 3 weeks of epigastric pain with radiation into his back. His vital signs are stable. Labs including a full cardiac work-up are normal. UA showing gross hematuria without obvious infection. CT scan does show a 7 mm right renal pelvis stone. In addition patient has a soft tissue mass most likely his known prostate carcinoma causing right ureter obstruction. He has increasing pelvic lymphadenopathy. Patient is urinating normally. His creatinine is normal. I have spoken to Dr. Forrester who will see patient in his office tomorrow or for further evaluation. Patient has a scheduled appointment with his oncologist Dr. Saab in approximately one week. Lab Data: Labs: Lab Results 01/16/21 01/16/21 01/16/21 Range/Units 09:40 09:40 09:40 WBC 10.0 (4.0-10.0) 10^3/ uL RBC 4.77 (4.1-5.3) 10^6/u L Hgb 14.2 (11.7-16.6) g/dL Hct 43.3 (42.0-52.0) % MCV 90.8 (80-94) fL MCH 29.8 (28.0-34.0) pg MCHC 32.8 (30.0-36.0) g/dL RDW 12.9 (12.1-15.1) % Plt Count 241 (130-400) 10^3/c mm MPV 9.7 (7.4-10.4) fL Neut % (Auto) 86.4 % Lymph % (Auto) 7.6 % [place] % (Auto) 4.9 % Eos % (Auto) 0.1 % Baso % (Auto) 0.5 % Neut # (Auto) 8.62 H (1.8-7.7) 10^3/u L Lymph # (Auto) 0.8 (0.8-4.8) 10^3/u L [place] # (Auto) 0.5 (0.2-0.9) 10^3/u L Eos # (Auto) 0.0 (0.0-0.8) 10^3/u L Baso # (Auto) 0.1 (0.0-0.1) 10^3/u L Nucleated RBC % (a uto) 0 % Nucleated RBCs # 0.0 /100WBC Sodium 142 (136-145) mmol/L Potassium 4.4 (3.5-5.1) mmol/L Chloride 104 (98-107) mmol/L Carbon Dioxide 23 (22-29) mmol/L Anion Gap 19.4 H (5-19) BUN 22 (8-23) mg/dL Creatinine 1.2 (0.7-1.2) mg/dL GFR Calculation Not Reportable Glucose 119 H (65-115) mg/dL Calculated Osmolal ity 298 H (285-295) mOsm/k g Calcium 9.3 (8.5-10.5) mg/dL Total Bilirubin 0.3 (0.15-1.2) mg/dL AST 28 (0-40) U/L ALT 16 (0-41) U/L Alkaline Phosphata se 143 H (40-130) IU/L Troponin T Baselin e 9 (0-15) ng/L Troponin T 120 Min [place] (0-15) ng/L Total Protein 7.0 (6.6-8.7) g/dL Albumin 5.0 (3.5-5.2) g/dL Globulin 2.0 (1.3-4.6) g/dL Urine Color (Yellow) Urine Appearance (CLEAR) Urine pH (5-7) Ur Specific Gravit y (1.005-1.030) Urine Protein (Negative) Urine Glucose (UA) (Normal) Urine Ketones (Negative) Urine Blood (Negative) Urine Nitrate (Negative) Urine Bilirubin (Negative) Urine Urobilinogen (Negative) mg/dL Ur Leukocyte [place] (Negative) Urine RBC (0-2) /hpf Urine WBC (0-5) /hpf Ur Squamous Epith Cells (0-5) /hpf Amorphous Sediment Urine Bacteria (NONE) /hpf 01/16/21 01/16/21 Range/Units 09:40 11:33 WBC (4.0-10.0) 10^3/ uL RBC (4.1-5.3) 10^6/u L Hgb (11.7-16.6) g/dL Hct (42.0-52.0) % MCV (80-94) fL MCH (28.0-34.0) pg MCHC (30.0-36.0) g/dL RDW (12.1-15.1) % Plt Count (130-400) 10^3/c mm MPV (7.4-10.4) fL Neut % (Auto) % Lymph % (Auto) % [place] % (Auto) % Eos % (Auto) % Baso % (Auto) % Neut # (Auto) (1.8-7.7) 10^3/u L Lymph # (Auto) (0.8-4.8) 10^3/u L [place] # (Auto) (0.2-0.9) 10^3/u L Eos # (Auto) (0.0-0.8) 10^3/u L Baso # (Auto) (0.0-0.1) 10^3/u L Nucleated RBC % (a uto) % Nucleated RBCs # /100WBC Sodium (136-145) mmol/L Potassium (3.5-5.1) mmol/L Chloride (98-107) mmol/L Carbon Dioxide (22-29) mmol/L Anion Gap (5-19) BUN (8-23) mg/dL Creatinine (0.7-1.2) mg/dL GFR Calculation Glucose (65-115) mg/dL Calculated Osmolal ity (285-295) mOsm/k g Calcium (8.5-10.5) mg/dL Total Bilirubin (0.15-1.2) mg/dL AST (0-40) U/L ALT (0-41) U/L Alkaline Phosphata se (40-130) IU/L Troponin T Baselin e (0-15) ng/L Troponin T 120 Min [place] 7.42 (0-15) ng/L Total Protein (6.6-8.7) g/dL Albumin (3.5-5.2) g/dL Globulin (1.3-4.6) g/dL Urine Color Yellow (Yellow) Urine Appearance Cloudy (CLEAR) Urine pH 5 (5-7) Ur Specific Gravit y 1.025 (1.005-1.030) Urine Protein 2+ H (Negative) Urine Glucose (UA) Norm (Normal) Urine Ketones Negative (Negative) Urine Blood 3+ H (Negative) Urine Nitrate Negative (Negative) Urine Bilirubin Neg (Negative) Urine Urobilinogen Norm (Negative) mg/dL Ur Leukocyte [place] Trace H (Negative) Urine RBC Too numerous to c nt H (0-2) /hpf Urine WBC 5-10 H (0-5) /hpf Ur Squamous Epith Cells Rare (0-5) /hpf Amorphous Sediment Not Reportable Urine Bacteria Trace (NONE) /hpf Imaging Data ^: CXR: Radiologist's impression: [employer] [address] XRay Report Signed Patient: Jake Jarrell Unit #: [id number] : 1940 Age/Sex: 80 / M ADM Date: 01/16/21 Loc: ER Room/Bed: Attending Dr: Ordering Provider/Ordering MD: Amy Jin Date of Service: 01/16/21 Procedure(s): XR chest 1V portable [id number] Accession Number(s): [id number] Report Number: [id number] PROCEDURE INFORMATION: Exam: XR Chest Exam date and time: 01/16/2021 9:37 AM Age: 80 years old Clinical indication: Chest pressure; Prior surgery; Surgery date: 6+ months; Surgery type: Pacemaker; Patient HX: Chest pain since December 28; Additional info: Epigastric pain TECHNIQUE: Imaging protocol: XR of the chest. Views: 1 view. COMPARISON: CT chest [facility] [id number] 07/25/2020 11:15 AM FINDINGS: Tubes, catheters and devices: A cardiac pacing device is again seen projecting over the left chest. Lungs: The lungs are somewhat hyperinflated with increased interstitial markings, likely representing COPD. No evidence of focal consolidation to suggest pneumonia. Pleural spaces: Unremarkable. No pleural effusion. No pneumothorax. Heart/Mediastinum: Stable cardiomediastinal silhouette. Vasculature: Aortic arch atherosclerotic calcifications seen. Bones/joints: Degenerative changes of the spine and shoulder joints noted. XR/XR chest 1V portable [id number] IMPRESSION: No evidence of focal consolidation. COPD changes. Dictated By: Markie Torres Signed By: Markie Torres Signed Date/Time: 01/16/21 1023 DD/ 1023 CT Abd/Pel: Radiologist's impression: [address] [id number] Scan ReportSigned Patient: Ruma Jarrell #: [id number]: 1940cct#:[id number]/Sex: 80 / MADM Date: 01/16/21Loc: ERRoom/Bed:Attending Dr: Ordering Provider/Ordering MD: Amy Jin Date of Service: 01/16/21 Procedure(s): CT abdomen pelvis w con* [id number] Accession Number(s): [id number] Report Number: [id number] WS: [id number] CT ABDOMEN AND PELVIS WITH CONTRAST HISTORY: epigastric pain with radiation into back; hematuria TECHNIQUE: Imaging performed of the abdomen and pelvis with IV contrast. Single phase imaging of the abdomen. Coronal and sagittal reformats are submitted. All CT scans at [facility] use at least one of these dose optimization techniques: automated exposure control; mA and/or kV adjustment per patient size (includes targeted exams where dose is matched to clinical indication); or iterative reconstruction. IV CONTRAST: Visipaque 320; 95 mL IV. Oral contrast: No DLP: 1127.18 mGy.cm COMPARISON: 09/10/2019 Lower thorax: Severe emphysema. Calcified and noncalcified nodules at the RIGHT lung base. Stable and negative on PET/CT. Heart is normal size. Moderate hiatal hernia. Liver/biliary system: Normal size liver. Lobulated cyst with a maximum diameter of 2.1 cm in the lateral RIGHT lobe. There is an additional too small to characterize hypodensity in the inferior RIGHT lobe. Gallbladder: Normal. No gallstones or wall thickening. No pericholecystic fluid. Pancreas: Normal size pancreas and pancreatic duct. No adjacent inflammation. Spleen: Normal size spleen with several granulomata. Adrenal glands: Bilateral adrenal nodules or low-attenuation and likely adenomas. No change since 09/10/2019. The largest nodule measures 1.8 cm on the RIGHT. Right kidney: Mild perinephric stranding with delayed excretion. There is moderate RIGHT hydroureteronephrosis. Nonobstructing calcification measuring 7 mm in the renal pelvis. RIGHT ureter is dilated and tortuous throughout its course. Soft tissue nodules with enhancement within the distal ureter at the UV junction. There is a lobulated soft tissue mass along the posterior urinary bladder which is contiguous with the prostate gland. This soft tissue enhancing mass extends into the ureter and is causing the obstruction. Left kidney: No obstruction or mass. Distal LEFT ureter is closely associated with the soft tissue enhancing mass in the urinary bladder. At this time there is no obstruction of the ureter. Aorta: Moderate atherosclerosis with no aneurysm. Extensive calcification in the splenic artery. Heavy calcification of the origin of the renal arteries. Lymphadenopathy: Large pelvic lymph nodes described on 09/10/2019 are much smaller in size. Largest lymph node along the RIGHT iliac chain is 1.6 cm in diameter, decreased from 2.5 cm. There are additional smaller pelvic lymph nodes. Free fluid: None. GI tract: Marked tortuosity of the colon with constipation. Surgical anastomotic site at the cecum. No obstruction. Diverticulosis without diverticulitis. Abdominal wall: Unremarkable abdominal wall. No hernia. Pelvis: Moderately well distended urinary bladder. There is a lobulated enhancing soft tissue mass along the posterior urinary bladder which is contiguous with the prostate gland. This mass extends over a width of 5.3 cm and a diameter of 1.6 cm. Mass extends to obstruct the distal RIGHT ureter. Soft tissue mass extends into the distal RIGHT ureter. Mass is also close to the orifice of the LEFT ureter but not causing obstruction. Bones: Advanced degenerative changes in the spine. No definite osteoblastic or osteolytic disease. Mild increased sclerosis within the L2 vertebral body. CT/CT abdomen pelvis w con* [id number] IMPRESSION: 1. Moderate RIGHT hydroureteronephrosis secondary to a soft tissue mass obstructing the distal RIGHT ureter and extending into the distal RIGHT ureter. 2. Lobulated soft tissue mass extends along the base of the urinary bladder and is contiguous with the prostate gland and extends to involve the orifices of the ureters. Soft tissue mass may all be related to prostate carcinoma. Superimposed transitional carcinoma should also be included. Recommend follow-up with urology. 3. Bilateral iliac chain and pelvic lymph nodes. These lymph nodes have decreased in size since 09/10/2019. There are a few new RIGHT pelvic lymph nodes which are subcentimeter. Early recurrent metastatic disease should be considered. 4. Sigmoid diverticulosis without acute diverticulitis. 5. Bilateral adrenal adenomas. 6. Hepatic cysts. Dictated By:Bernadine Escamilla DOSigned By:Bernadine Escamilla DOSigned Date/Time:01/16/21 1102DD/ 1046 Discharge Plan Discharge Patient Disposition: Home Clinical Impression: Prostate cancer metastatic to intrapelvic lymph node, Calculus of renal pelvis, Obstruction of right ureter Hematuria Qualifiers: Hematuria type: unspecified type Qualified Code(s): R31.9 - Hematuria, unspecified Condition: Stable Prescriptions: No Action rosuvastatin 10 mg tablet 10 mg PO DAILY Qty: 90 RF: 3 amlodipine 2.5 mg tablet 5 mg PO DAILY RF: 0 montelukast 10 mg tablet 10 mg PO DAILY RF: 0 Trelegy Ellipta 100-62.5-25 mcg blister with device 1 inh INHALATION Q24H 30 Days Qty: 28 RF: 6 ipratropium-albuterol 0.5 mg-3 mg(2.5 mg base)/3 mL solution for nebulization 3 ml inhalation Q4H Qty: 540 RF: 3 metoprolol succinate 50 mg tablet extended release 24 hr 50 mg PO DAILY Qty: 90 RF: 3 tamsulosin 0.4 mg capsule 0.4 mg PO BEDTIME RF: 0 Discharge Orders: Discharge ED (Routine); Ordered 01/16/21 Ordered By: Amy Jin Referrals: Wade Forrester MD [Physician] - Kong Garcia [Primary Care Provider] - Activity Restrictions/Additional Instructions: As we discussed case management is actively working on your follow-up appointment with Dr. Forrester. This will be for tomorrow or the following day. You need to return to the emergency department immediately for inability or difficulty urinating, severe pain, fevers of greater than 100.4, or repetitive episodes of vomiting. Coding Level of Care Code ED Thermal Surfacing Machine Operator for [place] Fwd Exam Comprehensive
[2021-01-16 09:51] LABS: Basophils # 0.1 10^3/uL (0.0-0.1); Basophils % 0.5 %; Eosinophils % 0.1 %; Hematocrit 43.3 % (42.0-52.0); Hemoglobin 14.2 g/dL (11.7-16.6); Lymphocytes # 0.8 10^3/uL (0.8-4.8); Lymphocytes % 7.6 %; Mean Corpuscular HGB Conc 32.8 g/dL (30.0-36.0); Mean Corpuscular Hemoglobin 29.8 pg (28.0-34.0); Mean Corpuscular Volume 90.8 fL (80-94); Mean Platelet Volume 9.7 fL (7.4-10.4); Monocytes # 0.5 10^3/uL (0.2-0.9); Monocytes % 4.9 %; Neutrophils # 8.62 10^3/uL (1.8-7.7); Neutrophils % 86.4 %; Nucleated Red Blood Cells % 0 %; Platelet Count 241 10^3/cmm (130-400); Red Blood Count 4.77 10^6/uL (4.1-5.3); Red Cell Distribution Width 12.9 % (12.1-15.1)
[2021-01-16 10:03] LABS: Urine Color Yellow (Yellow)
[2021-01-16 10:04] LABS: Add Urine Microscopic? YES; Alanine Aminotransferase 16 U/L (0-41); Alkaline Phosphatase 143 IU/L (40-130); Bilirubin Urine Neg (Negative); Blood Urea Nitrogen 22 mg/dL (8-23); Blood Urine 3+ (Negative); Calcium 9.3 mg/dL (8.5-10.5); Carbon Dioxide 23 mmol/L (22-29); Chloride 104 mmol/L (98-107); Glucose 119 mg/dL (65-115); Glucose Urine UA Norm (Normal); Ketones Urine Negative (Negative); Leukocyte Esterase Urine Trace (Negative); Nitrate Urine Negative (Negative); Osmolality Calculated 298 mOsm/kg (285-295); Protein Urine 2+ (Negative); Sodium 142 mmol/L (136-145); Specific Gravity, Urine 1.025 (1.005-1.030); Total Bilirubin 0.3 mg/dL (0.15-1.2); Urine Appearance Cloudy (CLEAR); Urobilinogen Urine Norm (Negative); pH Urine 5 (5-7)
[2021-01-16 10:05] LABS: RBC Urine TOO NUMEROUS TO CNT /hpf (0-2); Troponin(5th) Baseline 9 ng/L (0-15)
[2021-01-16 10:06] LABS: Bacteria Urine TRACE /hpf
[2021-01-16 10:07] LABS: Add Urine Culture? Yes; Squamous Epithelial Cell Urine RARE /hpf (0-5)
[2021-01-16 10:08] LABS: Anion Gap 19.4 (5-19); Aspartate Amino Transferase 28 U/L (0-40); Potassium 4.4 mmol/L (3.5-5.1)
[2021-01-16] MEDS: iodixanol 320 mg/mL 100mL Btl IV (10:32)
[2021-01-16 11:58] LABS: Troponin 5 2HR 7.42 ng/L (0-15)
[2021-01-16 12:04] LABS: Troponin 5 2HR Delta -1.58 ABS# (0-10)
[2021-01-16 12:08] VITALS: BP 135/78; PULSE 63; RESP 16; O2SAT 97
--- NOTE | 2021-01-16 12:26 | DCPLANNER ---
Addendum entered by Angela Santillan 01/17/21 09:56: technical manager chemical plant also had message to schedule a follow up appointment for patient with Dr. Saab for his prostrate cancer. technical manager chemical plant called Felisha Dudley, marketing information coordinator[facility]. technical manager chemical plant asked if patient had a follow up appointment scheduled for January [address] Saab. A note was put onto patients chart about patient being in the ER. Original Note: technical manager chemical plant was asked to schedule a follow up appointment for patient with Dr. Forrester. technical manager chemical plant called the office of Dr. Forrester, spoke with Mariella, gave clinic patients information. technical manager chemical plant was told that patients information would be printed and reviewed. Clinic will call patient with appointment information. Patient has [facility] insurance, shelter case manager emailed patients information over a secure email to November, with [facility], so that the authorization process could be started.
--- NOTE | 2021-01-29 07:31 | DCPLANNER ---
Patient has a follow up appointment scheduled for Friday, January 31, 2021 at 3:[address] Forrester. Clinic will call patient with appointment information.
--- NOTE | 2021-03-08 07:34 | DCPLANNER ---
Patient had a follow up appointment scheduled for 01.31.[address] Forrester - patient did attend appointment.
== END 2021-01-16 12:09 | disposition home or self-care (01) ==
PROVIDERS: Emergency Provider Physician Assistant; PCP Family Medicine
DX: R31.9 Hematuria, unspecified (principal); N13.5 Crossing vessel and stricture of ureter without hydronephrosis; N20.0 Calculus of kidney; C61 Malignant neoplasm of prostate; C77.5 Secondary and unspecified malignant neoplasm of intrapelvic lymph nodes; J44.9 Chronic obstructive pulmonary disease, unspecified; Z85.038 Personal history of other malignant neoplasm of large intestine; E78.5 Hyperlipidemia, unspecified; I10 Essential (primary) hypertension; Z95.0 Presence of cardiac pacemaker; Z87.891 Personal history of nicotine dependence
CPT/HCPCS: 36415; 71045; 74177; 80053; 81001; 84484; 85025; 87086; 93005; 99283; Q9967

== ENCOUNTER 2021-01-24 12:13 | Outpatient (CLI) | payer OTHER, MEDICARE, SELFPAY ==
[2021-01-24] MEDS: lidocaine 1% INJ 20 mL INJECTION (14:45)
[2021-01-24] MEDS: goserelin acetate 10.8 mg Implant SUBCUT (15:00)
--- NOTE | 2021-01-24 16:39 | ONC FU_ITS ---
Dr. Saab follow up note Patient: Jake Jarrell Unit #: [id number]: 1940 Dicatated By: Andrae Saab M.D.Date of Visit:Jan 24, 2021 Onc Med Follow-up/Prog Note History of Present Illness: Mr. Jarrell is a 80-year-old gentleman with history of elevated PSA since August 2018. During follow-up, his PSA had gone up to 21.3 and repeat PSA on 04/05/2019 was 17.76. 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, 3 cores (right mid 40%, right lateral base 90%, right lateral mid 20%0 Ashish score 3+4, 3 cores (left lateral base 45%, left lateral apex 30%, right base 20%) with Rye score 4+4 and 2 cores (left lateral mid 50%, left base 15% )with Ashish score 4+5 Left seminal vesicle, Ashish score 4+4 CT scan of chest abdomen pelvis showed large lymph nodes along stanley prostatic at and left greater than right seminal vesicles, markedly enlarged pelvic sidewall lymph nodes the largest in the right measuring 2.9 x 2.5 cm consistent with metastatic disease, enlarged left periaortic lymph nodes and markedly enlarged left proximal common iliac chain lymph nodes, left common iliac lymph node measured 2.5 cm. Noncalcified nodule right middle lobe measuring 7 mm and additional noncalcified nodule right lower lobe of lung near diaphragm measuring 9 mm Bone scan showed increase activity in the right side of L4 vertebral body and in the left hip. Left hip x-ray negative for evidence of bone metastatic disease Lumbar spine x-ray showed arthritic changes on this right side of L4-L5 vertebral bodies, no metastatic disease. CT PET scan done on 10/09/2019 showed hypermetabolic lesion in the right prostate gland, consistent with primary. Bilateral pelvic and retroperitoneal lymphadenopathy consistent with metastatic disease. No evidence of osseous metastatic disease or pulmonary metastatic disease. The patient was started on bicalutamide by Dr. Forrester on 09/20/2019 Patient denies any bony pains, denies any hematuria or dysuria, denies any hemoptysis or hematemesis, denies any jaundice, denies any nausea vomiting or fever, denies any weight loss. in January 2020 , his Casodex was stopped . He did have consultation with radiation oncology at that time. Dr Catherine did not recommend radiation at this time. He advised Mr. Jarrell that he would wait until he begins having pain or his PSA begins to rise steadily again or imaging indicates the need for radiation. Mr. Jarrell has continued with the Zoladex and tolerated this well. Came for follow-up, denies any specific complaint except episode of gross hematuria on January 15, 2021, as per patient she noted many blood clots and fresh blood in the urine which lasted for 48 hours, he went [place] [facility] on January 16, [address] scan of abdomen pelvis which showed moderate right hydronephrosis secondary to soft tissue mass obstructing right distal ureter extending into the right ureter. Lobulated soft tissue mass extends along the base of urinary bladder and is contiguous with the prostate gland and extends to involve the orifices of the ureters. Soft tissue mass may all be related to possible carcinoma or superimposed transitional carcinoma. Bilateral iliac chain and pelvic lymph nodes. These lymph nodes have decreased in size since August 2019. There are few new right pelvic lymph nodes which are subcentimeter. Sigmoid diverticulosis without acute diverticulitis. Bilateral adrenal adenoma. Patient was referred to Dr. Forrester for further evaluation, as per patient he did not call Dr. Forrester's office and find out they just received approval from [place] system, now he is waiting for appointment. Denies any more episode of gross hematuria denies any abdominal pain but had some discomfort in the epigastric for which is being evaluated by PMD. Denies any new bony pain except episode of pain in the right leg and pelvis. Denies any fever chills denies any nausea or vomiting denies any diarrhea constipation Medications: amLODIPine Besylate 1 Tablet (of 5 mg) Oral daily, Metoprolol Tartrate 1 Tablet (of 50 mg) Oral daily, Montelukast Sodium (10 mg) Tablet Oral at bedtime, Omeprazole 1 Tablet (of 20 mg) Tablet, enteric coated Oral daily, Tamsulosin HCl 1 Tablet (of 0.4 mg) Capsule Oral b.i.d., Trelegy Ellipta 1 Puff(s) (of 100-62.5-25 mcg/inh) Aerosol Powder, Breath Activated Inhalation daily Allergies: Oxaliplatin and Simvastatin. Review of Systems: Review of Systems is not available for this patient. Vital Signs: Performed on Jan 24, 2021 13:47 Height - 69.00 in Weight - 153.8 lbs (LOW) BSA - 1.85 sq.m BMI - 22.71 Temperature - 97.2 F (LOW) Pulse - 85 /min Respiration - 18 /min BP - 136/82 mm(hg) O2 Sat - 98 % Pain - 0 Fatigue - 6 Performance Status: 0 - Fully active, able to carry on all predisease activities without restrictions. (ECOG) Physical Examination: ENMT - No mouth sores, no thrush, no jaundice, Respiratory - Lungs are clear to auscultation , Cardiovascular - Regular rate and rhythm of heart, Abdomen - Soft, bowel sounds present, Extremities - No visible edema. Lab/Imaging: Most recent lab results are not available for this patient. 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, 3 cores with Ashish score 3+4, 3 cores with Rye score 4+4, and 2 cores with Ashish score 4+5, and seminal vesicles involvement with Rye score 4+4 CT scan of chest abdomen pelvis showed large lymph nodes along the periprostatic fat and left greater than right seminal vesicles, Markedly enlarged pelvic sidewall lymph nodes the largest in the right measuring 2.9 x 2.5 cm consistent with metastatic disease Enlarged left periaortic lymph nodes and marked enlarged left proximal common iliac chain lymph nodes, left common iliac chain lymph nodes measuring about 2.5 cm, Noncalcified nodule right middle lobe measuring 7 mm, additional noncalcified nodule right lower lobe of lung near diaphragm measuring 9 mm Bone scan showed increased activity in the right side of L4 vertebral body and in the left hip Left hip x-ray showed no evidence of bony metastatic disease Lumbar spine x-ray shows arthritic changes in right side of L4/L5 vertebral bodies, no metastatic disease. History of sick sinus syndrome now with pacemaker Mr Jarrell is currently being treated with every 3 month Zoladex single agent. He began the Zoladex on 10/18/2019. He has tolerated it well. He is off Casodex as of January.^ Episode of gross hematuria lasted for 48 hours on January 15, 2021, CT scan of abdomen pelvis done on January 16, 2021 shows moderate right hydronephrosis due to soft tissue mass obstructing distal right ureter and extending into the distal right ureter. Lobulated soft tissue mass extends along the base of the urinary bladder and is contiguous with the prostate gland and extends to involve the orifices of the ureters.. Bilateral iliac chain and pelvic lymph nodes. These lymph nodes have decreased in size since September 10, 2019 there are few new right pelvic lymph nodes which are subcentimeter.] Plan: Discussed with patient regarding his labs, his repeat PSA has gone up to 7.91 compared to 3.[address] scan of abdomen pelvis done for episode of gross hematuria on January 16, 2021 showed soft tissue mass in urinary bladder causing right hydronephrosis, could be new bladder cancer or prostate cancer invasion of urinary bladder, urology evaluation with possible cystoscopy is under consideration,, his follow-up PSA showed further progression. Prostate cancer progression versus prostate gland invasion from new bladder primary We will proceed with his next 3-month dose of Zoladex today and then patient will return to clinic 1 week after urology evaluation with CBC CMP Signed By: Andrae Saab M.D. <<Signature on File>>
== END 2021-01-24 12:14 | disposition home or self-care (01) ==
LOC: ONCMED 12:16
PROVIDERS: PCP Family Medicine; Visit Provider Internal Medicine Hematology & Oncology
DX: C61 Malignant neoplasm of prostate (principal); C77.8 Secondary and unspecified malignant neoplasm of lymph nodes of multiple regions; C79.51 Secondary malignant neoplasm of bone; R97.20 Elevated prostate specific antigen [PSA]; R91.1 Solitary pulmonary nodule; I49.5 Sick sinus syndrome; Z95.0 Presence of cardiac pacemaker; Z79.899 Other long term (current) drug therapy; Z79.818 Long term (current) use of other agents affecting estrogen receptors and estrogen levels
CPT/HCPCS: 36415; 84153; 96372; 96402; 99215; J9202

== ENCOUNTER 2021-02-15 08:46 | Outpatient (CLI) | payer OTHER, MEDICARE, SELFPAY ==
[2021-02-15 09:56] LABS: Basophils # 0.1 10^3/uL (0.0-0.1); Basophils % 0.8 %; Eosinophils # 0.1 10^3/uL (0.0-0.8); Eosinophils % 0.9 %; Hematocrit 40.3 % (42.0-52.0); Lymphocytes # 1.3 10^3/uL (0.8-4.8); Lymphocytes % 19.5 %; Mean Corpuscular HGB Conc 32.3 g/dL (30.0-36.0); Mean Corpuscular Hemoglobin 29.3 pg (28.0-34.0); Mean Corpuscular Volume 90.8 fL (80-94); Mean Platelet Volume 10.1 fL (7.4-10.4); Monocytes # 0.6 10^3/uL (0.2-0.9); Monocytes % 9.1 %; Neutrophils # 4.51 10^3/uL (1.8-7.7); Neutrophils % 69.2 %; Nucleated Red Blood Cells % 0 %; Platelet Count 243 10^3/cmm (130-400); Red Blood Count 4.44 10^6/uL (4.1-5.3); Red Cell Distribution Width 12.6 % (12.1-15.1); White Blood Count 6.5 10^3/uL (4.0-10.0)
[2021-02-15 10:23] LABS: Alanine Aminotransferase 7 U/L (0-41); Alkaline Phosphatase 148 IU/L (40-130); Anion Gap 15.5 (5-19); Aspartate Amino Transferase 24 U/L (0-40); Blood Urea Nitrogen 20 mg/dL (8-23); Calcium 9.3 mg/dL (8.5-10.5); Carbon Dioxide 25 mmol/L (22-29); Chloride 101 mmol/L (98-107); Globulin 2.9 g/dL (1.3-4.6); Glucose 115 mg/dL (65-115); Osmolality Calculated 288 mOsm/kg (285-295); Potassium 4.5 mmol/L (3.5-5.1); Sodium 137 mmol/L (136-145); Total Bilirubin 0.4 mg/dL (0.15-1.2); Total Protein 6.9 g/dL (6.6-8.7)
--- NOTE | 2021-03-04 18:22 | ONC FU_ITS ---
Dr. Saab follow up note Patient: Jake Jarrell Unit #: [id number]: 1940 Dicatated By: Andrae Saab M.D.Date of Visit:Feb 15, 2021 Onc Med Follow-up/Prog Note History of Present Illness: Mr. Jarrell is a 81-year-old gentleman with history of elevated PSA since August 2018. During follow-up, his PSA had gone up to 21.3 and repeat PSA on 04/05/2019 was 17.76. 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, 3 cores (right mid 40%, right lateral base 90%, right lateral mid 20%0 Ashish score 3+4, 3 cores (left lateral base 45%, left lateral apex 30%, right base 20%) with Monmouth score 4+4 and 2 cores (left lateral mid 50%, left base 15% )with Ashish score 4+5 Left seminal vesicle, Ashish score 4+4 CT scan of chest abdomen pelvis showed large lymph nodes along stanley prostatic at and left greater than right seminal vesicles, markedly enlarged pelvic sidewall lymph nodes the largest in the right measuring 2.9 x 2.5 cm consistent with metastatic disease, enlarged left periaortic lymph nodes and markedly enlarged left proximal common iliac chain lymph nodes, left common iliac lymph node measured 2.5 cm. Noncalcified nodule right middle lobe measuring 7 mm and additional noncalcified nodule right lower lobe of lung near diaphragm measuring 9 mm Bone scan showed increase activity in the right side of L4 vertebral body and in the left hip. Left hip x-ray negative for evidence of bone metastatic disease Lumbar spine x-ray showed arthritic changes on this right side of L4-L5 vertebral bodies, no metastatic disease. CT PET scan done on 10/09/2019 showed hypermetabolic lesion in the right prostate gland, consistent with primary. Bilateral pelvic and retroperitoneal lymphadenopathy consistent with metastatic disease. No evidence of osseous metastatic disease or pulmonary metastatic disease. The patient was started on bicalutamide by Dr. Forrester on 09/20/2019 Patient denies any bony pains, denies any hematuria or dysuria, denies any hemoptysis or hematemesis, denies any jaundice, denies any nausea vomiting or fever, denies any weight loss. in January 2020 , his Casodex was stopped . He did have consultation with radiation oncology at that time. Dr Catherine did not recommend radiation at this time. He advised Mr. Jarrell that he would wait until he begins having pain or his PSA begins to rise steadily again or imaging indicates the need for radiation. Mr. Jarrell has continued with the Zoladex and tolerated this well. episode of gross hematuria on January 15, 2021, as per patient he noted many blood clots and fresh blood in the urine which lasted for 48 hours, he went [place] [facility] on January [place], [address] scan of abdomen pelvis which showed moderate right hydronephrosis secondary to soft tissue mass obstructing right distal ureter extending into the right ureter. Lobulated soft tissue mass extends along the base of urinary bladder and is contiguous with the prostate gland and extends to involve the orifices of the ureters. Soft tissue mass may all be related to possible carcinoma or superimposed transitional carcinoma. Bilateral iliac chain and pelvic lymph nodes. These lymph nodes have decreased in size since August 2019. There are few new right pelvic lymph nodes which are subcentimeter. Sigmoid diverticulosis without acute diverticulitis. Bilateral adrenal adenoma. Patient was referred to Dr. Forrester for further evaluation,And on January 31, 2021, patient was seen by Dr. Nolen underwent cystoscopy Came for follow-up, denies any specific complaints except patient is recently underwent cystoscopy and not sure what was the findings. Denies any more hematuria denies any fever chills denies any nausea or vomiting denies any diarrhea constipation, occasionally hot flashes otherwise tolerating Zoladex as per patient he did receive his Zoladex injection on January 29, 2021 Medications: amLODIPine Besylate 1 Tablet (of 5 mg) Oral daily, Gemfibrozil 2 (600 mg) Tablet Oral ac (tid), Metoprolol Tartrate 1 Tablet (of 50 mg) Oral daily, Montelukast Sodium (10 mg) Tablet Oral at bedtime, Omeprazole 1 Tablet (of 20 mg) Tablet, enteric coated Oral daily, Tamsulosin HCl 1 Tablet (of 0.4 mg) Capsule Oral b.i.d., Trelegy Ellipta 1 Puff(s) (of 100-62.5-25 mcg/inh) Aerosol Powder, Breath Activated Inhalation daily Allergies: Oxaliplatin and Simvastatin. Review of Systems: Review of Systems is not available for this patient. Vital Signs: Performed on Feb 15, 2021 09:38 Height - 69.00 in Weight - 152 lbs (LOW) BSA - 1.84 sq.m BMI - 22.45 Temperature - 97.4 F (LOW) Pulse - 90 /min Respiration - 18 /min BP - 146/94 mm(hg) (HIGH) O2 Sat - 99 % Pain - 4 Fatigue - 7 Performance Status: 0 - Fully active, able to carry on all predisease activities without restrictions. (ECOG) Physical Examination: ENMT - No mouth sores, no thrush, no jaundice, Respiratory - Lungs are clear to auscultation, Cardiovascular - Regular rate and rhythm of heart, Abdomen - Soft, bowel sounds present, Extremities - No visible edema. Lab/Imaging: Most recent lab results are not available for this patient. 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, 3 cores with Ashish score 3+4, 3 cores with Monmouth score 4+4, and 2 cores with Ashish score 4+5, and seminal vesicles involvement with Ashish score 4+4 CT scan of chest abdomen pelvis showed large lymph nodes along the periprostatic fat and left greater than right seminal vesicles, Markedly enlarged pelvic sidewall lymph nodes the largest in the right measuring 2.9 x 2.5 cm consistent with metastatic disease Enlarged left periaortic lymph nodes and marked enlarged left proximal common iliac chain lymph nodes, left common iliac chain lymph nodes measuring about 2.5 cm, Noncalcified nodule right middle lobe measuring 7 mm, additional noncalcified nodule right lower lobe of lung near diaphragm measuring 9 mm Bone scan showed increased activity in the right side of L4 vertebral body and in the left hip Left hip x-ray showed no evidence of bony metastatic disease Lumbar spine x-ray shows arthritic changes in right side of L4/L5 vertebral bodies, no metastatic disease. History of sick sinus syndrome now with pacemaker Mr Jarrell is currently being treated with every 3 month Zoladex single agent. He began the Zoladex on 10/18/2019. He has tolerated it well. He is off Casodex as of January. Plan: Discussed with patient regarding his concern and questions, at this point, we will discuss with Dr. Forrester regarding cystoscopy findings and if there was a bladder mass as seen on CT scan of pelvis done by the biopsy was done to confirm prostate cancer invasion versus second primary as bladder cancer. Patient was advised to call us or go to hospital or call Dr. Forrester, in case he has recurrence of hematuria or blood clots in his urine Patient will return to clinic in 1 month with CBC CMP and PSA, hopefully by that time, he will have cystoscopy findings and possible biopsy report Signed By: Andrae Saab M.D. <<Signature on File>>
== END 2021-02-15 08:47 | disposition home or self-care (01) ==
PROVIDERS: PCP Family Medicine; Visit Provider Internal Medicine Hematology & Oncology
DX: C61 Malignant neoplasm of prostate (principal); R59.9 Enlarged lymph nodes, unspecified; Z86.79 Personal history of other diseases of the circulatory system; Z95.0 Presence of cardiac pacemaker; Z79.818 Long term (current) use of other agents affecting estrogen receptors and estrogen levels
CPT/HCPCS: 36415; 80053; 85025; 99214

== ENCOUNTER 2021-03-02 13:43 | Outpatient (CLI) | payer OTHER, MEDICARE, SELFPAY ==
--- NOTE | 2021-03-02 14:15 | CT_ITS ---
WS: [id number] CT scan of the chest without IV contrast, additional two-dimensional coronal and sagittal reconstruct ion was performed. 03/02/2021 Clinical Data: Lung nodule Comparison: CT chest, 07/25/2020. DLP: 611.[address] scans at [facility] use at least one of these dose optimization techniques: automat ed exposure control; mA and/or kV adjustment per patient size (includes targeted exams where dose is matched to clinical indication); or iterative reconstruction. Findings: Right middle lobe nodule measures 0.6 cm and is seen best on image 47 of 74. It has a smooth border. No other nodules are seen. No masses or effusions are seen. The heart size is normal with no pericardial effusion. There are pac emaker wires within the heart. No pneumonia or pneumothorax is seen. The emphysematous changes throug hout the lungs unchanged The pulmonary arterial system and thoracic aorta demonstrate no abnormalities or dilatations. There i s no axillary or significant mediastinal adenopathy. The upper abdomen shows bilateral renal pelvic dilatation. The central right renal calculus is seen. The remainder of the upper abdomen shows no change. There is still a cyst in the right lobe liver unc hanged. The adrenal glands are minimally prominent and probably are adenomas. The sclerotic change of the L2 vertebral body has increased. There is also sclerotic change on the ri ght side of the L1 vertebral body and a compression fracture with sclerosis of the T7 vertebral body. These findings are suggestive for metastatic prostate disease. CT/CT chest wo con [id number] Impression: 1. Right middle lobe nodule unchanged and no further nodule workup is recommend ed. 2. Dilatation of the renal pelves which may represent bladder outlet obstructio n from prostate enlargement. 3. Sclerotic change of the thoracic and lumbar vertebral bodies consistent with metastatic prostate disease.
== END 2021-03-02 13:44 | disposition home or self-care (01) ==
LOC: RADWPI 13:49
PROVIDERS: PCP Family Medicine; Visit Provider Internal Medicine Critical Care Medicine
DX: R91.1 Solitary pulmonary nodule (principal)
CPT/HCPCS: 71250

== ENCOUNTER 2021-03-13 15:43 | Emergency (ER) | payer OTHER, MEDICARE, SELFPAY ==
[2021-03-13 15:54] VITALS: BP 162/107; PULSE 85; RESP 24; TEMP 36.3; O2SAT 96; BMI 21.5
[2021-03-13 16:21] VITALS: BP 157/106; PULSE 71; RESP 18; O2SAT 97
--- NOTE | 2021-03-13 16:34 | CTR_ITS ---
PROCEDURE INFORMATION: Exam: CT Head Without Contrast Exam date and time: 03/13/2021 4:34 PM Age: 81 years old Clinical indication: Visual disturbance; Prior surgery; Surgery date: Post-operative (0-2 days); Surgery type: Tear duct SX today. Blurred vision post op; Additional info: Tia/cva TECHNIQUE: Imaging protocol: Computed tomography of the head without contrast. Radiation optimization: All CT scans at this facility use at least one of these dose optimization techniques: automated exposure control; mA and/or kV adjustment per patient size (includes targeted exams where dose is matched to clinical indication); or iterative reconstruction. COMPARISON: AR bone scan whole body* [id number] 09/10/2019 7:59 AM RADIATION DOSE METRICS: Total DLP (mGy-cm): 907.11 FINDINGS: Brain: Mild diffuse cerebral atrophy. Low attenuation signal within the periventricular and deep white matter tracts centered within the frontal lobes suggestive of chronic small vessel ischemic disease. No intracranial hemorrhage. No mass effect or midline shift. No cerebral edema. Cerebral ventricles: No ventriculomegaly. Paranasal sinuses: Visualized sinuses are unremarkable. No fluid levels. Mastoid air cells: Visualized mastoid air cells are well aerated. Bones/joints: Unremarkable. No acute fracture. Soft tissues: Unremarkable. CT/CT head wo con* [id number] IMPRESSION: 1. No acute intracranial abnormality. 2. Mild diffuse cerebral atrophy and sequela of chronic small vessel ischemic disease. Radiation Dose CTDIVOL = (mGy): DLP = 907.11 (mGy-cm)
--- NOTE | 2021-03-13 16:34 | ECG_ITS ---
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: : 1940 Requested By: Victor Hugo Rasmussen Order Number: [id number] Reading MD: ONESIMO BURNETTE Measurements Intervals [place] Rate: 74 P: 125 MS: 175 QRS: 59 QRSD: 74 T: 30 QT: 394 QTc: 438 Interpretive Statements ELECTRONIC ATRIAL PACEMAKER NONSPECIFIC ST & T-WAVE ABNORMALITY ABNORMAL RHYTHM ECG Compared to ECG 01/16/2021 10:02:47 T-wave abnormality now present Sinus rhythm no longer present Ventricular premature complex(es) no longer present Myocardial infarct finding no longer present Electronically Signed On 03-13-2021 22:31:46 CDT by ONESIMO BURNETTE [id number]
--- NOTE | 2021-03-13 16:59 | W.ED.GENADLT ---
HPI - General Adult General: Chief complaint: General Medical Stated complaint: Blurry Vision, Post OP On eyelid Time Seen by Provider: 03/13/21 16:03 History of Present Illness: HPI narrative: 81 yo Male presents emergency room after having an eye surgery earlier today. Patient was seen at the ambulatory surgery center in town had a procedure done on his left eye when he woke up from anesthesia he had some loss of the central field of vision but he can see peripherally without any difficulty. He has not had any other symptoms. Onset (ago): hour(s) Severity: mild Relieving factors: none Exacerbating factors: none Associated symptoms: Deny chest pain, confusion, cough, diaphoresis, decreased appetite, dyspnea, fevers/chills, headache(s), malaise, nausea, rash, palpitations, seizures, short of breath, syncope or weakness Treatments prior to arrival: none Review of Systems Const: Denies: malaise or diaphoresis ENMT: Denies: throat pain, ear or mastoid pain, nasal discharge or nasal congestion Card: Denies: chest pain, palpitations or syncope Resp: Denies: dyspnea GI: Denies: nausea : Denies: flank pain, dysuria, urinary frequency or urinary urgency Skin/Breast: Denies: rash Neuro: Denies: headache(s) or confusion PFSH ED PFSH: Medical History Benign neoplasm of unspecified adrenal gland Carcinoma in situ of colon COPD (chronic obstructive pulmonary disease) Cystic disease of liver Elevated prostate specific antigen [PSA] Frequent PVCs Gastro-esophageal reflux disease without esophagitis Gross hematuria Hearing loss Hyperlipidemia, unspecified Hypertension Lower urinary tract symptoms (LUTS) Pain, joint, knee, left Presence of cardiac pacemaker 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 Sebaceous cyst Sick sinus syndrome Solitary pulmonary nodule Surgical History History of colon resection History of eye surgery 7 surgeries History of knee surgery right Family History Father , at age 71 Stomach cancer Mother , at age 90 Colon cancer Other Cancer Social History Quit status (tobacco): has quit using tobacco Year quit tobacco: 1998 - 2PPD x 40 Years Second hand smoke exposure: No Smoking risk assessment/counseling performed?: No Alcohol intake: never Desire information about alcohol rehabilitation?: No Counseling given: No Desire information about substance/drug rehabilitation?: No Counseling given: No Lives independently: Yes Household members: none Marital status: Single service: Yes Current occupational status: retired History of recent travel: No Current gender identity: Male Physical Exam Const: COMMON NORMALS: no acute distress GENERAL APPEARANCE: cooperative and comfortable ORIENTATION/CONSCIOUSNESS: Yes awake, Yes oriented to person, Yes oriented to place and Yes oriented to time HENMT: COMMON NORMALS: normocephalic, atraumatic and hearing grossly normal bilaterally HEAD & SCALP: normocephalic and atraumatic Neck/C-Spine: COMMON NORMALS: no JVD Resp: COMMON NORMALS: normal respiratory effort, No retractions, No use of accessory muscles and clear to auscultation bilaterally AUSCULTATION: clear to auscultation bilaterally Cardio: COMMON NORMALS: no JVD, regular rate, regular rhythm and No murmurs present (Cardio) RATE: regular rate RHYTHM: regular rhythm GI: COMMON NORMALS: Soft to palpation and No hepatosplenomegaly present AUSCULTATION: Yes normoactive bowel sounds PALPATION: Yes Soft to palpation, No Tenderness to palpation present (GI), No Guarding due to palpation present (GI) and Yes No hepatosplenomegaly present Extremity: COMMON NORMALS: normal to inspection, capillary refill normal, no clubbing, cyanosis or edema, no calf tenderness and no pedal edema Neuro: SENSORIUM/ORIENTATION: Yes oriented to person, Yes oriented to place and Yes oriented to time Skin: COMMON NORMALS: no rashes or lesions noted GENERAL SKIN EXAM: no rashes or lesions noted Course Vital Signs: Vital signs: Vital Signs Temperature 97.4 F L 03/13/21 15:54 Pulse Rate 69 03/13/21 18:21 Respiratory Rate 18 03/13/21 18:21 Blood Pressure 162/91 03/13/21 18:21 Pulse Oximetry 96 03/13/21 18:21 MDM - General Adult MDM Narrative: Medical decision making narrative: Patient states he feels fine he prefers to go home his NIH score is essentially 0. CT head does not show anything acute follow-up with ophthalmology tomorrow return if his problems Lab Data: Labs: Lab Results 03/13/21 03/13/21 03/13/21 Range/Units 17:17 17:17 17:17 WBC 8.7 (4.0-10.0) 10^3/ uL RBC 4.37 (4.1-5.3) 10^6/u L Hgb 12.8 (11.7-16.6) g/dL Hct 40.0 L (42.0-52.0) % MCV 91.5 (80-94) fL MCH 29.3 (28.0-34.0) pg MCHC 32.0 (30.0-36.0) g/dL RDW 13.1 (12.1-15.1) % Plt Count 370 (130-400) 10^3/c mm MPV 9.3 (7.4-10.4) fL Neut % (Auto) 93.5 % Lymph % (Auto) 3.3 % [place] % (Auto) 1.0 % Eos % (Auto) 0.1 % Baso % (Auto) 0.5 % Neut # (Auto) 8.10 H (1.8-7.7) 10^3/u L Lymph # (Auto) 0.3 L (0.8-4.8) 10^3/u L [place] # (Auto) 0.1 L (0.2-0.9) 10^3/u L Eos # (Auto) 0.0 (0.0-0.8) 10^3/u L Baso # (Auto) 0.0 (0.0-0.1) 10^3/u L Nucleated RBC % (a uto) 0 % Nucleated RBCs # 0.0 /100WBC Sodium 139 (136-145) mmol/L Potassium 4.4 (3.5-5.1) mmol/L Chloride 102 (98-107) mmol/L Carbon Dioxide 23 (22-29) mmol/L Anion Gap 18.4 (5-19) BUN 18 (8-23) mg/dL Creatinine 1.4 H (0.7-1.2) mg/dL GFR Calculation Not Reportable Glucose 147 H (65-115) mg/dL Calculated Osmolal ity 293 (285-295) mOsm/k g Calcium 9.3 (8.5-10.5) mg/dL Total Bilirubin 0.3 (0.15-1.2) mg/dL AST 27 (0-40) U/L ALT 10 (0-41) U/L Alkaline Phosphata se 272 H (40-130) IU/L Troponin T Baselin e 10 (0-15) ng/L Total Protein 7.1 (6.6-8.7) g/dL Albumin 4.3 (3.5-5.2) g/dL Globulin 2.8 (1.3-4.6) g/dL Discharge Plan Discharge Patient Disposition: Home Clinical Impression: Visual disturbance Condition: Stable Prescriptions: No Action ezetimibe 10 mg tablet 10 mg PO DAILY RF: 0 omeprazole 20 mg tablet,delayed release (DR/EC) 20 mg PO BID RF: 0 amlodipine 2.5 mg tablet 2.5 mg PO .3 tablets daily RF: 0 gemfibrozil 600 mg tablet 600 mg PO BID RF: 0 montelukast [Singulair] 10 mg tablet 10 mg PO DAILY RF: 0 ipratropium-albuterol 0.5 mg-3 mg(2.5 mg base)/3 mL solution for nebulization 3 ml inhalation Q4H Qty: 540 RF: 3 metoprolol succinate 50 mg tablet extended release 24 hr 50 mg PO DAILY Qty: 90 RF: 3 Trelegy Ellipta 100-62.5-25 mcg blister with device 1 inh INHALATION Q24H 30 Days Qty: 28 RF: 6 tamsulosin 0.4 mg capsule 0.4 mg PO BEDTIME RF: 0 Discharge Orders: Discharge ED (Routine); Ordered 03/13/21 Ordered By: Victor Hugo Verde Referrals: Adilia Cummings MD [Primary Care Provider] - Patient Instructions: Opioid Safety Coding Level of Care Code ED Jigsawyer for Pari Seo Exam Comprehensive NIH stroke score NIHSS Level Of Consciousness - 1a: 0 Level Of Consciousness Questions - 1b: Both Correct Level Of Consciousness Commands - 1c: Both Correct Best Gaze - 2: Normal Visual Grant - 3: No Visual Loss (Small area of central vision loss bilaterally.) Facial Palsy - 4: Normal Motor Arm Right - 5: No Drift Motor Arm Left - 5: No Drift Motor Leg Right - 6: No Drift Motor Leg Left - 6: No Drift Limb Ataxia - 7: Absent Sensory - 8: Normal Best Language - 9: No Aphasia Dysarthia - 10: Normal Extinction And Inattention - 11: 0 Score Total Score: 0
[2021-03-13 17:16] VITALS: BP 176/85; PULSE 69; RESP 20; O2SAT 98
[2021-03-13 17:27] LABS: Basophils % 0.5 %; Eosinophils % 0.1 %; Hemoglobin 12.8 g/dL (11.7-16.6); Lymphocytes # 0.3 10^3/uL (0.8-4.8); Lymphocytes % 3.3 %; Mean Corpuscular Hemoglobin 29.3 pg (28.0-34.0); Mean Corpuscular Volume 91.5 fL (80-94); Mean Platelet Volume 9.3 fL (7.4-10.4); Monocytes # 0.1 10^3/uL (0.2-0.9); Neutrophils % 93.5 %; Nucleated Red Blood Cells % 0 %; Platelet Count 370 10^3/cmm (130-400); Red Blood Count 4.37 10^6/uL (4.1-5.3); Red Cell Distribution Width 13.1 % (12.1-15.1); White Blood Count 8.7 10^3/uL (4.0-10.0)
[2021-03-13 17:42] LABS: Alanine Aminotransferase 10 U/L (0-41); Albumin Level 4.3 g/dL (3.5-5.2); Alkaline Phosphatase 272 IU/L (40-130); Anion Gap 18.4 (5-19); Aspartate Amino Transferase 27 U/L (0-40); Blood Urea Nitrogen 18 mg/dL (8-23); Calcium 9.3 mg/dL (8.5-10.5); Carbon Dioxide 23 mmol/L (22-29); Chloride 102 mmol/L (98-107); Globulin 2.8 g/dL (1.3-4.6); Glucose 147 mg/dL (65-115); Osmolality Calculated 293 mOsm/kg (285-295); Potassium 4.4 mmol/L (3.5-5.1); Sodium 139 mmol/L (136-145); Total Bilirubin 0.3 mg/dL (0.15-1.2); Total Protein 7.1 g/dL (6.6-8.7)
[2021-03-13 17:52] LABS: Troponin(5th) Baseline 10 ng/L (0-15)
[2021-03-13 18:21] VITALS: BP 162/91; PULSE 69; RESP 18; O2SAT 96
== END 2021-03-13 18:21 | disposition home or self-care (01) ==
PROVIDERS: Emergency Provider Family Medicine; PCP Family Medicine
DX: H53.9 Unspecified visual disturbance (principal); Z85.89 Personal history of malignant neoplasm of other organs and systems; J44.9 Chronic obstructive pulmonary disease, unspecified; Z85.038 Personal history of other malignant neoplasm of large intestine; E78.5 Hyperlipidemia, unspecified; I10 Essential (primary) hypertension; Z95.0 Presence of cardiac pacemaker; Z85.46 Personal history of malignant neoplasm of prostate; Z85.72 Personal history of non-Hodgkin lymphomas; Z87.891 Personal history of nicotine dependence
CPT/HCPCS: 70450; 80053; 84484; 85025; 93005; 99283

== ENCOUNTER 2021-03-30 08:42 | Outpatient (CLI) | payer OTHER, MEDICARE, SELFPAY ==
--- NOTE | 2021-03-30 08:50 | NM_ITS ---
WS: [id number] NUCLEAR MEDICINE BONE SCAN Radiopharmaceutical: 24.1 Tc-99m MDP mCi IV Injection site: Left antecubital Postinjection imaging delay: 1 hr CLINICAL INFORMATION: PROSTATE CANCER COMPARISON: September 10, 2019 FINDINGS: Bone lesions: Diffuse bony metastatic disease involving the axial and appendicular skeleton has devel oped since the prior examination. This is most prominent in the thoracic and lumbar spine as well as the manubrium. Calvarial metastasis. Metastatic lesions involving the shoulders, ribs, proximal humer i, pelvis and proximal femurs. Soft tissue contours: Normal. Kidneys: Delayed excretion right kidney. Other findings: None. NM/NM bone scan whole body* [id number] IMPRESSION: Diffuse bony metastatic disease involving the axial and appendicular skeleton h as developed since the prior examination.
== END 2021-03-30 08:43 | disposition home or self-care (01) ==
PROVIDERS: PCP Family Medicine; Visit Provider Urology
DX: C61 Malignant neoplasm of prostate (principal)
CPT/HCPCS: 78306; A9561

== ENCOUNTER 2021-04-16 12:29 | Inpatient (IN) | payer OTHER, MEDICARE, SELFPAY ==
[2021-04-16] VITALS (9 sets, daily range): BP systolic 106–121; BP diastolic 74–88; PULSE 74–96; RESP 14–24; TEMP 36.4; O2SAT 96–98; BMI 21.4
--- NOTE | 2021-04-16 12:38 | XRR_ITS ---
PROCEDURE INFORMATION: Exam: XR Chest Exam date and time: 04/16/2021 12:38 PM Age: 81 years old Clinical indication: Dyspnea; Prior surgery; Surgery date: 6+ months; Surgery type: Pacemaker; Patient HX: SOB for years; Additional info: Dyspnea/cough TECHNIQUE: Imaging protocol: XR of the chest. Views: 1 view. COMPARISON: CT chest con [id number] 03/02/2021 2:14 PM FINDINGS: Tubes, catheters and devices: A permanent pacemaker appears intact. Lungs: Unremarkable. No consolidation. Pleural spaces: Unremarkable. No pleural effusion. No pneumothorax. Heart/Mediastinum: The heart is not enlarged. There is tortuosity and calcification of the aorta. Bones/joints: Unremarkable. XR/XR chest 1V portable [id number] IMPRESSION: No acute cardiopulmonary abnormality.
--- NOTE | 2021-04-16 12:38 | ECG_ITS ---
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: : 1940 Requested By: Victor Hugo Rasmussen Order Number: [id number] Reading MD: ONESIMO BURNETTE Measurements Intervals [place] Rate: 98 P: 61 MA: 139 QRS: 45 QRSD: 68 T: 88 QT: 331 QTc: 424 Interpretive Statements SINUS RHYTHM WITH FREQUENT SUPRAVENTRICULAR PREMATURE COMPLEXES NONSPECIFIC ST & T-WAVE ABNORMALITY ABNORMAL RHYTHM ECG Compared to ECG 03/13/2021 17:07:14 Atrial-paced complex(es) or rhythm no longer present T-wave abnormality still present Electronically Signed On 04-16-2021 18:28:27 CDT by ONESIMO BURNETTE [email or web address] [email or web address] health [id number]
[2021-04-16 13:08] LABS: ABG PCO2 28.3 mmHg (35-45); ABG PH Result 7.52 (7.35-7.45); Alveolar-Arterial Oxygen Gradi 15.5 mmHg (5-10); Arterial Blood Gas Hematocrit 38.3 % (42-52); Base Excess ABG 1.1 mmol/L (-2.0-2.0); Blood Gas Operator Identificat CK; Blood Gas Sample Site Brachial, left; Blood Gas Sample Type Arterial; Carboxyhemoglobin 0.9 %THgb (0.4-20.1); HCO3 ABG 23.1 mmol/L (22-26); HGB O2 Sat 97.5 % (95-100); Ionized Calcium Level - ABG 1.2 mmol/L (1.1-1.4); Methemoglobin 0.5 % (0.4-1.5); Oxygen Device NC; Oxygen Saturation ABG 98.9; Potassium Level - ABG 4.3 mmol/L (3.5-5.0); Total Hemoglobin 12.5 g/dL (14-18)
--- NOTE | 2021-04-16 13:24 | ED_ITS ---
HPI - SOB/Dyspnea General: Chief Complaint: Shortness of Breath/Dyspnea Stated Complaint: SOB Time Seen by Provider: 04/16/21 12:37 History of Present Illness: HPI Narrative: 81-year-old male presents to the emergency room has a history of prostate CA with metastasis. He has a history of COPD usually wears oxygen at 2 L by nasal cannula. Presents complaining of not being able to swallow or keep anything down. Reports his biggest issue now is difficulty with nausea and vomiting along with pelvic and back pain. He states he has been living on mostly Ensure lately. He does tell me he is not been getting any treatment for his prostate cancer. MD elicited complaint: cough Pertinent past history: COPD and other (States he with bony mets) Timing: constant Severity: moderate Exacerbating factors: exertion Relieving factors: rest Known history of: other (Prostate CA with mets) Associated symptoms: Reports nausea and vomiting; Deny abdominal pain, chest pain, fever(s) or orthopnea Treatment prior to arrival: none Review of Systems Const: Denies: fever(s), chills, body aches, change in appetite, fatigue or malaise ENMT: Denies: throat pain, ear or mastoid pain, nasal discharge or nasal congestion Card: Reports: dyspnea on exertion; Denies: chest pain, edema or orthopnea Resp: Reports: non-productive cough; Denies: dyspnea or productive cough GI: Reports: nausea and vomiting; Denies: abdominal pain, hematemesis, coffee ground emesis, diarrhea, constipation, bloating, hematochezia or melena : Denies: flank pain, dysuria, urinary frequency or urinary urgency Musc: Reports: back pain Skin/Breast: Denies: rash or pruritus PFSH ED PFSH: Medical History Benign neoplasm of unspecified adrenal gland Carcinoma in situ of colon COPD (chronic obstructive pulmonary disease) Cystic disease of liver Elevated prostate specific antigen [PSA] Frequent PVCs Gastro-esophageal reflux disease without esophagitis Gross hematuria Hearing loss Hyperlipidemia, unspecified Hypertension Lower urinary tract symptoms (LUTS) Pain, joint, knee, left Presence of cardiac pacemaker 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 Sebaceous cyst Sick sinus syndrome Solitary pulmonary nodule Surgical History History of colon resection History of eye surgery 7 surgeries History of knee surgery right Family History Father , at age 71 Stomach cancer Mother , at age 90 Colon cancer Other Cancer Social History Smoking and tobacco status: former smoker Quit status (tobacco): has quit using tobacco Year quit tobacco: 1997 - 2PPD x 40 Years Second hand smoke exposure: No Smoking risk assessment/counseling performed?: No Alcohol intake: never Desire information about alcohol rehabilitation?: No Counseling given: No Desire information about substance/drug rehabilitation?: No Counseling given: No Lives independently: Yes Household members: none Marital status: Single service: Yes Current occupational status: retired History of recent travel: No Current gender identity: Male Physical Exam Const: COMMON NORMALS: no acute distress GENERAL APPEARANCE: cooperative and comfortable ORIENTATION/CONSCIOUSNESS: Yes awake, Yes oriented to person, Yes oriented to place and Yes oriented to time HENMT: COMMON NORMALS: normocephalic, atraumatic and hearing grossly normal bilaterally HEAD & SCALP: normocephalic and atraumatic Neck/C-Spine: COMMON NORMALS: no JVD Resp: COMMON NORMALS: normal respiratory effort, No retractions, No use of accessory muscles and clear to auscultation bilaterally AUSCULTATION: clear to auscultation bilaterally Cardio: COMMON NORMALS: no JVD, regular rate, regular rhythm and No murmurs present (Cardio) RATE: regular rate RHYTHM: regular rhythm GI: COMMON NORMALS: Soft to palpation and No hepatosplenomegaly present AUSCULTATION: Yes normoactive bowel sounds PALPATION: Yes Soft to palpation, No Tenderness to palpation present (GI), No Guarding due to palpation present (GI) and Yes No hepatosplenomegaly present Extremity: COMMON NORMALS: normal to inspection, capillary refill normal, no clubbing, cyanosis or edema, no calf tenderness and no pedal edema Neuro: SENSORIUM/ORIENTATION: Yes oriented to person, Yes oriented to place and Yes oriented to time Skin: COMMON NORMALS: no rashes or lesions noted GENERAL SKIN EXAM: no rashes or lesions noted Course Vital Signs: Vital signs: Vital Signs Temperature 97.6 F 04/16/21 12:37 Pulse Rate 96 04/16/21 14:14 Respiratory Rate 14 04/16/21 14:37 Blood Pressure 121/88 04/16/21 14:14 Pulse Oximetry 98 04/16/21 14:14 MDM - SOB/Dyspnea MDM Narrative: Medical decision making narrative: Patient has fairly extensive metastasis in on the CT today it is advanced. Reviewed labs and imaging on the chart and reviewed with the patient and family member at the bedside. Family member is recommending hospice and we talked to the patient he is in agreement they do not feel like they can care for him at home he has been trying to manage on his own and has not been able to do so recently been taking Ensure shakes lately. Discussed with the hospitalist will admit to observation for pain control consult radiation oncology for palliative radiation treatments for the bone mets and hospice as well. Lab Data: Labs: Lab Results 04/16/21 04/16/21 04/16/21 Range/Units 12:57 15:09 15:09 WBC 10.2 H (4.0-10.0) 10^3/ uL RBC 4.38 (4.1-5.3) 10^6/u L Hgb 12.3 (11.7-16.6) g/dL Hct 39.2 L (42.0-52.0) % MCV 89.5 (80-94) fl MCH 28.1 (28.0-34.0) pg MCHC 31.4 (30.0-36.0) g/dL RDW 13.7 (12.1-15.1) % Plt Count 288 (130-400) 10^3/c mm MPV 9.4 (7.4-10.4) fL Neut % (Auto) 81.6 % Lymph % (Auto) 7.3 % [place] % (Auto) 6.9 % Eos % (Auto) 0.2 % Baso % (Auto) 0.4 % Neut # (Auto) 8.34 H (1.8-7.7) 10^3/u L Lymph # (Auto) 0.8 (0.8-4.8) 10^3/u L [place] # (Auto) 0.7 (0.2-0.9) 10^3/u L Eos # (Auto) 0.0 (0.0-0.8) 10^3/u L Baso # (Auto) 0.0 (0.0-0.1) 10^3/u L Nucleated RBC % (a uto) 0.3 % Nucleated RBCs # 0.0 /100WBC Specimen Type Arterial Sample Site Brachial, left ABG pH 7.52 H (7.35-7.45) ABG pCO2 28.3 L (35-45) mmHg ABG pO2 100.0 (80.0-100.0) mmH g ABG HCO3 23.1 (22-26) mmol/L ABG O2 Saturation 98.9 ABG Base Excess 1.1 (-2.0-2.0) mmol/ L John Test N/a A-a O2 Gradient 15.5 H (5-10) mmHg Hematocrit 38.3 L (42-52) % Hgb O2 Saturation 97.5 (95-100) % Carboxyhemoglobin 0.9 (0.4-20.1) %THgb Methemoglobin 0.5 (0.4-1.5) % Total Hemoglobin 12.5 L (14-18) g/dL Sodium 139.0 141 (131-143) mmol/L Potassium 4.3 5.2 H (3.5-5.0) mmol/L Glucose 155.0 H 106 (70-115) mg/dL Ionized Calcium 1.2 (1.1-1.4) mmol/L O2 Delivery Device Nc O2 Liters/Min 4.0 % FiO2 36.0 % Bender Hand ID Ck Chloride 101 (98-107) mmol/L Carbon Dioxide 26 (22-29) mmol/L Anion Gap 19.2 H (5-19) BUN 30 H (8-23) mg/dL Creatinine 1.3 H (0.7-1.2) mg/dL GFR Calculation Not Reportable Calculated Osmolal ity 299 H (285-295) mOsm/k g Calcium 9.0 (8.5-10.5) mg/dL Total Bilirubin 0.3 (0.15-1.2) mg/dL AST 74 H (0-40) U/L ALT 30 (0-41) U/L Alkaline Phosphata se 483 H (40-130) IU/L Troponin T Baselin e (0-15) ng/L Total Protein 6.3 L (6.6-8.7) g/dL Albumin 3.7 (3.5-5.2) g/dL Globulin 2.6 (1.3-4.6) g/dL 04/16/21 Range/Units 15:09 WBC (4.0-10.0) 10^3/ uL RBC (4.1-5.3) 10^6/u L Hgb (11.7-16.6) g/dL Hct (42.0-52.0) % MCV (80-94) fl MCH (28.0-34.0) pg MCHC (30.0-36.0) g/dL RDW (12.1-15.1) % Plt Count (130-400) 10^3/c mm MPV (7.4-10.4) fL Neut % (Auto) % Lymph % (Auto) % [place] % (Auto) % Eos % (Auto) % Baso % (Auto) % Neut # (Auto) (1.8-7.7) 10^3/u L Lymph # (Auto) (0.8-4.8) 10^3/u L [place] # (Auto) (0.2-0.9) 10^3/u L Eos # (Auto) (0.0-0.8) 10^3/u L Baso # (Auto) (0.0-0.1) 10^3/u L Nucleated RBC % (a uto) % Nucleated RBCs # /100WBC Specimen Type Sample Site ABG pH (7.35-7.45) ABG pCO2 (35-45) mmHg ABG pO2 (80.0-100.0) mmH g ABG HCO3 (22-26) mmol/L ABG O2 Saturation ABG Base Excess (-2.0-2.0) mmol/ L John Test A-a O2 Gradient (5-10) mmHg Hematocrit (42-52) % Hgb O2 Saturation (95-100) % Carboxyhemoglobin (0.4-20.1) %THgb Methemoglobin (0.4-1.5) % Total Hemoglobin (14-18) g/dL Sodium (131-143) mmol/L Potassium (3.5-5.0) mmol/L Glucose (70-115) mg/dL Ionized Calcium (1.1-1.4) mmol/L O2 Delivery Device O2 Liters/Min % FiO2 % Bender Hand ID Chloride (98-107) mmol/L Carbon Dioxide (22-29) mmol/L Anion Gap (5-19) BUN (8-23) mg/dL Creatinine (0.7-1.2) mg/dL GFR Calculation Calculated Osmolal ity (285-295) mOsm/k g Calcium (8.5-10.5) mg/dL Total Bilirubin (0.15-1.2) mg/dL AST (0-40) U/L ALT (0-41) U/L Alkaline Phosphata se (40-130) IU/L Troponin T Baselin e 17 H (0-15) ng/L Total Protein (6.6-8.7) g/dL Albumin (3.5-5.2) g/dL Globulin (1.3-4.6) g/dL Discharge Plan Discharge Patient Disposition: Placed in Observation Clinical Impression: Prostate cancer metastatic to intrapelvic lymph node, Prostate cancer metastatic to intraabdominal lymph node, Prostate cancer metastatic to bone, Pathologic compression fracture of lumbar vertebra, Pathologic compression fracture of thoracic vertebra Condition: Stable Prescriptions: No Action ezetimibe 10 mg tablet 10 mg PO DAILY RF: 0 omeprazole 20 mg tablet,delayed release (DR/EC) 20 mg PO BID RF: 0 hydrochlorothiazide 12.5 mg tablet 12.5 mg PO DAILY MDD see pharmacy comment PRN (Reason: shortness of breath) Qty: 30 RF: 3 amlodipine 5 mg tablet 5 mg PO DAILY Qty: 30 RF: 6 gemfibrozil 600 mg tablet 600 mg PO BID RF: 0 ipratropium-albuterol 0.5 mg-3 mg(2.5 mg base)/3 mL solution for nebulization 3 ml inhalation Q4H Qty: 540 RF: 3 metoprolol succinate 50 mg tablet extended release 24 hr 50 mg PO DAILY Qty: 90 RF: 3 Trelegy Ellipta 100-62.5-25 mcg blister with device 1 inh INHALATION Q24H 30 Days Qty: 28 RF: 6 oxycodone-acetaminophen [Percocet] 5-325 mg tablet 1 tab PO Q6H PRN (Reason: pain) 6 Days Qty: 24 RF: 0 ropinirole 2 mg Tablet 2 mg PO DAILY RF: 0 tamsulosin 0.4 mg capsule 0.4 mg PO BEDTIME RF: 0 Referrals: Adilia Cummings MD [Primary Care Provider] - Patient Instructions: Opioid Safety Coding Level of Care Code ED Delivery Representative for Pari Seo
--- NOTE | 2021-04-16 13:45 | CTR_ITS ---
PROCEDURE INFORMATION: Exam: CT Abdomen And Pelvis With Contrast Exam date and time: 04/16/2021 1:45 PM Age: 81 years old Clinical indication: Upper abdominal pain. Prior colon resection and appendectomy. History of bone, prostate and colon cancers. TECHNIQUE: Imaging protocol: Computed tomography of the abdomen and pelvis with contrast. Radiation optimization: All CT scans at this facility use at least one of these dose optimization techniques: automated exposure control; mA and/or kV adjustment per patient size (includes targeted exams where dose is matched to clinical indication); or iterative reconstruction. Contrast material: VISI 320; Contrast volume: 95 ml; Contrast route: INTRAVENOUS (IV); COMPARISON: CT abdomen pelvis wo con [id number] 01/25/2021 11:11 AM RADIATION DOSE METRICS: Total DLP (mGy-cm): 921.55 FINDINGS: Lungs: A pulmonary nodule in the right middle lobe measures 6.1 mm (image 4); unchanged. A nodule at the right base measures 1.1 cm; previously 8.8 mm (image 15). Calcified granuloma in the right lower lobe. Severe centrilobular emphysema. Pacer or AICD leads are noted. No pericardial effusion. Mediastinal space: Small hiatal hernia. Liver: A simple hepatic cyst measures 2.2 cm. Hepatic hypodensities measuring less than 5 mm are too small to accurately characterize and require no follow-up. Gallbladder and bile ducts: The gallbladder is unremarkable. Pancreas: The pancreas is unremarkable. Spleen: The spleen is unremarkable. Adrenal glands: A benign adrenal adenoma on the right measures 1.8 cm. A benign adrenal adenoma on the left measures 1.4 cm. Kidneys and ureters: There is moderate to severe hydronephrosis and hydroureter bilaterally secondary to distal ureteral obstruction by mass. Nonobstructive renal stones are seen. There is a tiny dependent stone in the distal left ureter measuring 1.8 mm. Stomach and bowel: Colonic diverticulosis without evidence of acute diverticulitis. Appendix: The appendix has been removed. Intraperitoneal space: No free intraperitoneal air is seen. Vasculature: No abdominal aortic aneurysm.; There is heavy calcification at the origin the right renal artery likely reflecting underlying stenosis. Lymph nodes: No retroperitoneal lymphadenopathy.; A left pelvic lymph node measures 1.3 x 1.4 cm; previously 1.1 x 1.2 cm (image 52). A right pelvic lymph node measures 1.6 x 2.7 cm; previously 1.6 x 1.8 cm. Urinary bladder: There is an enlarging mass in the posterior bladder extending through the posterior bladder wall into the posterior pelvis, and there is invasion of the distal ureters bilaterally. Reproductive: The prostate measures 3.0 x 3.5 cm. Bones/joints: Sclerotic bone metastases appears slightly worsened. There are mild compression fractures involving T12 and L1 that are new from prior and may be pathologic. Soft tissues: Small fat containing umbilical hernia. CT/CT abdomen pelvis w con* [id number] IMPRESSION: 1. Enlarging mass in the posterior bladder (possibly a bladder primary or prostate primary) extending through the posterior bladder wall into the posterior pelvis, and there is invasion of the distal ureters bilaterally. There is moderate to severe hydronephrosis and hydroureter bilaterally secondary to distal ureteral obstruction by mass (new on the left). Nonobstructive renal stones are seen. There is a tiny dependent stone in the distal left ureter measuring 1.8 mm. 2. Sclerotic bone metastases appears slightly worsened. 3. There are mild compression fractures involving T12 and L1 that are new from prior and may be pathologic. 4. A metastatic lesion in the right lower lobe has increased in size. A nodule in the right middle lobe is unchanged. 5. Worsening bilateral pelvic lymphadenopathy is likely metastatic. 6. There is heavy calcification at the origin the right renal artery likely reflecting underlying stenosis. Radiation Dose CTDIVOL = (mGy): DLP = 921.55 (mGy-cm)
--- NOTE | 2021-04-16 14:00 | PC.PHAR ---
PT IS [facility]. I SENT FOR HIS MEDICATION LIST BUT STILL HAVEN'T RECEIVED IT. PT HAD A MEDICATION LIST ON HIS PHONE AND HE WAS ABLE TO CONFIRM HIS MEDICATIONS.
[2021-04-16] MEDS: promethazine 25 mg/mL SDV 1 mL IM (14:35)
[2021-04-16] MEDS: morphine 4 mg/mL SDV 1 mL IVP (14:37)
--- NOTE | 2021-04-16 14:38 | ECG_ITS ---
[facility] Test Date: 2021-04-16 Pat Name: Jake Jarrell Department: Room: Gender: Male Turn Laster: : 1940 Requested By: Victor Hugo Rasmussen Order Number: [id number] Reading MD: ONESIMO BURNETTE Measurements Intervals [place] Rate: 90 P: TN: QRS: 42 QRSD: 76 T: 87 QT: 348 QTc: 427 Interpretive Statements Sinus rhythm with PACs NONSPECIFIC ST & T-WAVE ABNORMALITY ABNORMAL RHYTHM ECG Compared to ECG 04/16/2021 12:57:18 Sinus rhythm no longer present T-wave abnormality still present Electronically Signed On 04-16-2021 18:35:55 CDT by ONESIMO BURNETTE [email or web address]
[2021-04-16 15:27] LABS: Basophils % 0.4 %; Eosinophils % 0.2 %; Hematocrit 39.2 % (42.0-52.0); Hemoglobin 12.3 g/dL (11.7-16.6); Lymphocytes # 0.8 10^3/uL (0.8-4.8); Lymphocytes % 7.3 %; Mean Corpuscular HGB Conc 31.4 g/dL (30.0-36.0); Mean Corpuscular Hemoglobin 28.1 pg (28.0-34.0); Mean Corpuscular Volume 89.5 fl (80-94); Mean Platelet Volume 9.4 fL (7.4-10.4); Monocytes # 0.7 10^3/uL (0.2-0.9); Monocytes % 6.9 %; Neutrophils # 8.34 10^3/uL (1.8-7.7); Neutrophils % 81.6 %; Nucleated Red Blood Cells % 0.3 %; Platelet Count 288 10^3/cmm (130-400); Red Blood Count 4.38 10^6/uL (4.1-5.3); Red Cell Distribution Width 13.7 % (12.1-15.1); White Blood Count 10.2 10^3/uL (4.0-10.0)
[2021-04-16] MEDS: iodixanol 320 mg/mL 100mL Btl IV (15:30)
[2021-04-16 15:50] LABS: Troponin(5th) Baseline 17 ng/L (0-15)
[2021-04-16 15:55] LABS: Alanine Aminotransferase 30 U/L (0-41); Albumin Level 3.7 g/dL (3.5-5.2); Alkaline Phosphatase 483 IU/L (40-130); Anion Gap 19.2 (5-19); Aspartate Amino Transferase 74 U/L (0-40); Blood Urea Nitrogen 30 mg/dL (8-23); Carbon Dioxide 26 mmol/L (22-29); Chloride 101 mmol/L (98-107); Globulin 2.6 g/dL (1.3-4.6); Glucose 106 mg/dL (65-115); Osmolality Calculated 299 mOsm/kg (285-295); Potassium 5.2 mmol/L (3.5-5.1); Sodium 141 mmol/L (136-145); Total Bilirubin 0.3 mg/dL (0.15-1.2); Total Protein 6.3 g/dL (6.6-8.7)
[2021-04-16] MEDS: sodium chloride 0.9% 1,000 ML 125 ML IV (16:18)
[2021-04-16 17:28] LABS: Troponin 5 2HR 15.76 ng/L (0-15)
[2021-04-16 17:29] LABS: C Reactive Protein 214.3 mg/L (0.0-4.9)
[2021-04-16 17:32] LABS: Troponin 5 2HR Delta -1.24 ABS# (0-10)
[2021-04-16 17:37] LABS: Procalcitonin 0.29 ng/mL (0-0.5)
--- NOTE | 2021-04-16 18:18 | P.HP_ITS ---
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 due to generalized weakness, poor appetite, diffuse bony pain, severe back pain, decreased urination. Patient tells me that he lives in [facility], he lives by himself, his brother is a few miles away, his niece is at bedside, for the last 3 weeks he has had a poor appetite, has barely ate anything in the last 3 weeks, he has felt nauseous, no vomiting, he has not had a bowel movement in a few days, he has had intractable bony pain, severe back pain, he tells me that he tries to minimally use the Percocet, as [facility], no fevers, no chills, no cough, no shortness of breath, no lightheadedness, no dizziness, denies dysuria, no hematuria, no flank pain Review of Systems Const: Reports: change in weight, fatigue and malaise; Denies: fever(s) or chills Eyes: Denies: change in vision or blurry vision ENMT: Denies: throat pain or nasal congestion Card: Denies: chest pain or palpitations Resp: Denies: dyspnea, productive cough, non-productive cough or wheezing GI: Reports: abdominal pain, nausea and constipation; Denies: vomiting, hematemesis, diarrhea, hematochezia or melena : Denies: flank pain, difficulty urinating, dysuria or urinary frequency Musc: Reports: back pain, joint pain and muscle weakness; Denies: neck pain Skin/Breast: Denies: rash Neuro: Denies: headache(s), dizziness or vertigo Endo: Denies: polyuria or polydipsia Medications/Allergies Home Medications Medication Instructions Recorded Confirmed Last Taken Type tamsulosin 0.4 mg PO BEDTIME 07/19/20 04/16/21 04/15/21 History ipratropium 0.5 mg-albuterol 3 mg 3 ml INHALATION Q4H #540 ml 08/16/20 04/16/21 04/16/21 Rx (2.5 mg base)/3 mL nebulization soln metoprolol succinate 50 mg 50 mg PO DAILY #90 tab 11/03/20 04/16/21 04/16/21 Rx tablet,extended release 24 hr ezetimibe 10 mg tablet 10 mg PO DAILY 01/31/21 04/16/21 04/15/21 History omeprazole 20 mg tablet,delayed 20 mg PO BID 01/31/21 04/16/21 04/16/21 History release gemfibrozil 600 mg tablet 600 mg PO BID 02/16/21 04/16/21 04/15/21 History fluticasone fur. 100 mcg-umeclid 1 inh INHALATION Q24H 30 Days #28 03/08/21 04/16/21 Unknown Rx 62.5 mcg-vilant 25 mcg each inhalat.powder oxycodone-acetaminophen 5 mg-325 1 tab PO Q6H PRN 6 Days #24 tab 03/26/21 04/16/21 Unknown Rx mg tablet amlodipine 5 mg tablet 5 mg PO DAILY #30 tab 04/13/21 04/16/21 04/16/21 Rx hydrochlorothiazide 12.5 mg tablet 12.5 mg PO DAILY PRN #30 tab MDD 04/13/21 04/16/21 Unknown Rx see pharmacy comment ropinirole 2 mg PO DAILY 04/16/21 04/16/21 04/15/21 History Allergies Allergy/AdvReac Type Severity Reaction Status Date / Time oxaliplatin Allergy ADR-Insomni Verified 04/13/21 11:01 a simvastatin Allergy ALGY-Joint Verified 04/13/21 11:01 Pain PFSH Acute PFSH: Medical History Benign neoplasm of unspecified adrenal gland Carcinoma in situ of colon COPD (chronic obstructive pulmonary disease) Cystic disease of liver Elevated prostate specific antigen [PSA] Frequent PVCs Gastro-esophageal reflux disease without esophagitis Gross hematuria Hearing loss Hyperlipidemia, unspecified Hypertension Lower urinary tract symptoms (LUTS) Pain, joint, knee, left Presence of cardiac pacemaker 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 Sebaceous cyst Sick sinus syndrome Solitary pulmonary nodule Surgical History History of colon resection History of eye surgery 7 surgeries History of knee surgery right Family History Father , at age 71 Stomach cancer Mother , at age 90 Colon cancer Other Cancer Social History Smoking and tobacco status: former smoker Quit status (tobacco): has quit using tobacco Year quit tobacco: 1997 - 2PPD x 40 Years Second hand smoke exposure: No Smoking risk assessment/counseling performed?: No Alcohol intake: never Desire information about alcohol rehabilitation?: No Counseling given: No Desire information about substance/drug rehabilitation?: No Counseling given: No Lives independently: Yes Household members: none Marital status: Single service: Yes Current occupational status: retired History of recent travel: No Current gender identity: Male Vitals/I&O/Wt Last Vital Signs Temp 97.6 F 04/16/21 12:37 Pulse 88 04/16/21 17:13 Resp 23 H 04/16/21 17:13 BP 106/82 04/16/21 17:13 Pulse Ox 97 04/16/21 17:13 Weight last 48 hrs Weight 65.771 kg Physical Exam Narrative: EXAM NARRATIVE: Protein calorie malnutrition, muscle wasting Const: COMMON NORMALS: no acute distress and patient oriented x3 Eye: COMMON NORMALS: Equal, round and reactive pupils present and EOMs intact bilaterally GENERAL EYE: appearance normal, both eyes and all related st ructures PUPIL: Yes Equal, round and reactive pupils present Neck/C-Spine: COMMON NORMALS: full ROM, no lymphadenopathy and no JVD THYROID: Thyroid normal Lymph: LYMPHATIC: no lymphadenopathy noted Resp: COMMON NORMALS: normal respiratory effort, No retractions, No use of accessory muscles and clear to auscultation bilaterally AUSCULTATION: clear to auscultation bilaterally Cardio: COMMON NORMALS: regular rate, regular rhythm, S1 normal heart sound present, S2 normal heart sound present, No gallops present (Cardio), No clicks present (Cardio) and No murmurs present (Cardio) RATE: regular rate RHYTHM: regular rhythm HEART SOUNDS: S1 normal heart sound present and S2 normal heart sound present GI: COMMON NORMALS: Normal to inspection, nondistended, normoactive bowel sounds present, Soft to palpation and non-tender Extremity: COMMON NORMALS: no pedal edema Neuro: COMMON NORMALS: patient oriented x3, CN's II-XII intact bilaterally, moves all extremities and no focal motor deficits Data : 04/16/21 15:09 04/16/21 15:09 A&P Assessment and plan (1) Pathologic compression fracture of thoracic vertebra: -Has been on Casodex -bone scan Bone lesions: Diffuse bony metastatic disease involving the axial and appendicular skeleton has developed since the prior examination. This is most prominent in the thoracic and lumbar spine as well as the manubrium. Calvarial metastasis. Metastatic lesions involving the shoulders, ribs, proximal humeri, pelvis and proximal femurs. -CTAbdomen and Pelvis 1. Enlarging mass in the posterior bladder (possibly a bladder primary or prostate primary) extending through the posterior bladder wall into the posterior pelvis, and there is invasion of the distal ureters bilaterally. There is moderate to severe hydronephrosis and hydroureter bilaterally secondary to distal ureteral obstruction by mass (new on the left). Nonobstructive renal stones are seen. There is a tiny dependent stone in the distal left ureter measuring 1.8 mm. 2. Sclerotic bone metastases appears slightly worsened. 3. There are mild compression fractures involving T12 and L1 that are new from prior and may be pathologic. 4. A metastatic lesion in the right lower lobe has increased in size. A nodule in the right middle lobe is unchanged. 5. Worsening bilateral pelvic lymphadenopathy is likely metastatic. 6. There is heavy calcification at the origin the right renal artery likely reflecting underlying stenosis. -I did discuss the case with Dr. Forrester, he feels that this bladder mass is likely prostate, patient was supposed to follow-up with biopsy, but he never came to fruition, options are hospice versus pursuing treatment including palliative stent placement -We will reach out to oncology for options -Intractable pain -Generalized weakness -Protein calorie malnutrition -Pathologic fractures T12, L1 Plan: -Patient would like better management of pain, start Dilaudid 0.5 mg every 4 hours as needed, oxycodone 5 mg every 8 hours for breakthrough pain -Bowel regimen, MiraLAX, Colace -Intranasal calcitonin for pathologic fractures -Consult PT OT -Consult dietary -Patient is not sure if he wants to pursue treatment versus hospice -Given concerns for bilateral hydronephrosis and hydroureter secondary to bladder mass, will continue IV fluids, start Zosyn -Discuss with oncology options are available -Lovenox for DVT prophylaxis -DNR/DNI Status: Acute (2) Generalized weakness: Status: Acute (3) Protein calorie malnutrition: Status: Acute (4) Pathologic compression fracture of lumbar vertebra: Status: Acute (5) Prostate cancer metastatic to bone: Status: Acute (6) Back pain: Status: Acute Qualifiers: Back pain location: low back pain Chronicity: chronic Back pain laterality: midline Sciatica presence: without sciatica Qualified Code(s): M54.5 - Low back pain; G89.29 - Other chronic pain (7) Bladder mass: Status: Acute (8) Pulmonary nodule: Status: Acute (9) COPD (chronic obstructive pulmonary disease): Status: Acute Qualifiers: COPD type: emphysema (10) Hyperlipidemia, unspecified: Status: Acute Qualifiers: Hyperlipidemia type: unspecified Qualified Code(s): E78.5 - Hyper lipidemia, unspecified (11) Presence of cardiac pacemaker: Status: Acute Attestations Medical Necessity Statement*: Patient requires hospitalization, inpatient, greater than 2 minutes, for diffusely metastatic prostate cancer, with bilateral ureter hydronephrosis, concerns for UTI, pathologic compression fracture, intractable pain, generalized weakness Coding Level of Care Code Acute [employer] Professor for Chg Fwd Diagnoses Pathologic compression fracture of thoracic vertebra M48.54XA Generalized weakness R53.1 Protein calorie malnutrition E46 Pathologic compression fracture of lumbar vertebra M48.56XA Prostate cancer metastatic to bone C61; C79.51 Back pain M54.5; G89.29 Back pain location: low back pain Chronicity: chronic Back pain laterality: midline Sciatica presence: without sciatica Bladder mass N32.89 Pulmonary nodule R91.1 COPD (chronic obstructive pulmonary disease) J44.9 COPD type: emphysema Hyperlipidemia, unspecified E78.5 Hyperlipidemia type: unspecified Presence of cardiac pacemaker Z95.0
[2021-04-16] MEDS: HYDROmorphone 1 mg/mL INJ 1 mL 0.5 MG IVP (18:28)
--- NOTE | 2021-04-16 19:43 | PC.NURSE ---
pt sleeping at this pain assessment.
[2021-04-16 21:41] LABS: Troponin 5 6HR 14.85 ng/L (0-15)
[2021-04-16 21:46] LABS: Troponin 5 6HR Delta -2.15 ng/L (0-12)
[2021-04-16 22:11] LABS: Add Urine Microscopic? YES; Bacteria Urine 4+ /hpf; Bilirubin Urine Neg (Negative); Blood Urine 2+ (Negative); Glucose Urine UA Norm (Normal); Ketones Urine Negative (Negative); Leukocyte Esterase Urine 1+ (Negative); Nitrate Urine Negative (Negative); Protein Urine 1+ (Negative); RBC Urine 0-4 /hpf (0-2); Squamous Epithelial Cell Urine 0-4 /hpf (0-5); Urine Appearance SL Hazy (CLEAR); Urine Color Yellow (Yellow); Urobilinogen Urine Norm (Negative); pH Urine 8 (5-7)
[2021-04-16 22:12] LABS: Add Urine Culture? No; Sulfosalicylic Acid Urine Negative (Negative)
[2021-04-16] MEDS: tamsulosin 0.4 mg Capsule PO (23:27)
[2021-04-16] MEDS: enoxaparin 40 mg/0.4 mL Syringe SUBCUT (23:27)
[2021-04-16] MEDS: sodium chloride 0.9% 1,000 ML 100 ML IV (23:27)
[2021-04-16] MEDS: piperacillin-tazobactam 3.375 GM in sodium chloride 0.9% (plus) 50 ML IV (23:30)
[2021-04-17] VITALS (11 sets, daily range): BP systolic 98–118; BP diastolic 63–90; PULSE 71–89; RESP 14–30; TEMP 37.1; O2SAT 95–99
--- NOTE | 2021-04-17 03:19 | PC.NURSE ---
Pt resting, repositioned for comfort; denies further needs at this time. Lights turned down for sleeping.
[2021-04-17] MEDS: piperacillin-tazobactam 3.375 GM in sodium chloride 0.9% (plus) 50 ML IV ×3 (07:06→22:24)
--- NOTE | 2021-04-17 07:08 | PC.NURSE ---
Received report assumed care. No changes noted from report. Pt alert and oriented . Denies any needs. Med and fluids infusing
[2021-04-17 08:19] LABS: Basophils % 0.3 %; Eosinophils % 0.3 %; Hemoglobin 11.5 g/dL (11.7-16.6); Lymphocytes # 0.8 10^3/uL (0.8-4.8); Lymphocytes % 8.5 %; Mean Corpuscular HGB Conc 31.1 g/dL (30.0-36.0); Mean Corpuscular Hemoglobin 28.2 pg (28.0-34.0); Mean Corpuscular Volume 90.7 fl (80-94); Mean Platelet Volume 9.4 fL (7.4-10.4); Monocytes # 0.8 10^3/uL (0.2-0.9); Monocytes % 8.1 %; Neutrophils # 7.41 10^3/uL (1.8-7.7); Neutrophils % 80.3 %; Nucleated Red Blood Cells % 0 %; Platelet Count 216 10^3/cmm (130-400); Red Blood Count 4.08 10^6/uL (4.1-5.3); Red Cell Distribution Width 13.9 % (12.1-15.1); White Blood Count 9.2 10^3/uL (4.0-10.0)
[2021-04-17 08:43] LABS: Alanine Aminotransferase 21 U/L (0-41); Albumin Level 2.9 g/dL (3.5-5.2); Alkaline Phosphatase 377 IU/L (40-130); Anion Gap 17.5 (5-19); Aspartate Amino Transferase 40 U/L (0-40); Blood Urea Nitrogen 29 mg/dL (8-23); Calcium 8.4 mg/dL (8.5-10.5); Carbon Dioxide 22 mmol/L (22-29); Chloride 102 mmol/L (98-107); Globulin 3.3 g/dL (1.3-4.6); Glucose 111 mg/dL (65-115); Magnesium 2.2 mg/dL (1.7-2.3); Osmolality Calculated 291 mOsm/kg (285-295); Phosphorus 3.6 mg/dL (2.5-4.5); Potassium 4.5 mmol/L (3.5-5.1); Sodium 137 mmol/L (136-145); Thyroid Stimulating Hormone 2.83 uIU/mL (0.27-4.20); Total Bilirubin 0.4 mg/dL (0.15-1.2); Total Protein 6.2 g/dL (6.6-8.7)
[2021-04-17] MEDS: docusate sodium 100 mg Capsule PO (09:10)
[2021-04-17] MEDS: famotidine 20 mg Tablet PO (09:10)
[2021-04-17] MEDS: HYDROmorphone 1 mg/mL INJ 1 mL 0.5 MG IVP ×2 (13:12→18:52)
--- NOTE | 2021-04-17 13:43 | PC.NURSE ---
Relaxing after pain meds. States he feels better
--- NOTE | 2021-04-17 13:46 | PC.NURSE ---
C/O low back pain with hip pain. Med helps with pain
--- NOTE | 2021-04-17 14:07 | PM.PN ---
Subjective Subjective: Interval history: Patient was seen this morning, he tells me that his pain is better controlled, no fevers, no chills overnight, no nausea, no vomiting he has not had a bowel movement yet Vitals/I&O/Wt Last Vital Signs Temp 97.6 F 04/16/21 12:37 Pulse 71 04/17/21 12:00 Resp 20 H 04/17/21 13:12 BP 115/81 04/17/21 12:00 Pulse Ox 98 04/17/21 13:12 04/16/21 04/17/21 04/17/21 22:59 06:59 14:59 Intake Total 1050 / 1050 1050 / 1050 Balance 1050 / 1050 1050 / 1050 Weight last 48 hrs Weight 65.771 kg Physical Exam Narrative: EXAM NARRATIVE: Protein calorie malnutrition, muscle wasting Const: COMMON NORMALS: no acute distress and patient oriented x3 GENERAL APPEARANCE: cooperative and frail appearing NUTRITIONAL APPEARANCE: thin Resp: COMMON NORMALS: normal respiratory effort, No retractions, No use of accessory muscles and clear to auscultation bilaterally AUSCULTATION: clear to auscultation bilaterally Cardio: COMMON NORMALS: regular rate, regular rhythm, S1 normal heart sound present, S2 normal heart sound present, No gallops present (Cardio), No clicks present (Cardio) and No murmurs present (Cardio) RATE: regular rate RHYTHM: regular rhythm HEART SOUNDS: S1 normal heart sound present and S2 normal heart sound present GI: COMMON NORMALS: Normal to inspection, nondistended, normoactive bowel sounds present, Soft to palpation and non-tender PALPATION: Yes Soft to palpation Extremity: COMMON NORMALS: no pedal edema Neuro: COMMON NORMALS: patient oriented x3, moves all extremities and no focal motor deficits Urinary Catheter Management^: Mijares: Cath Placed During This Visit: yes Reason for Continuing Indwelling Catheter: Accurate Measurement of Urinary Output in Critically Ill Patients Urinary Catheter Date of Insertion: 04/16/21 Urinary Catheter Time of Insertion: 21:53 Data : 04/17/21 08:01 04/17/21 08:01 Micro: Microbiology 04/16/21 17:10 Blood Culture - Preliminary Blood SPECIMEN COLLECTED 04/16/21 16:59 Blood Culture - Preliminary Blood SPECIMEN COLLECTED A&P Assessment and plan (1) Pathologic compression fracture of thoracic vertebra: -bone scan Bone lesions: Diffuse bony metastatic disease involving the axial and appendicular skeleton has developed since the prior examination. This is most prominent in the thoracic and lumbar spine as well as the manubrium. Calvarial metastasis. Metastatic lesions involving the shoulders, ribs, proximal humeri, pelvis and proximal femurs. -CTAbdomen and Pelvis 1. Enlarging mass in the posterior bladder (possibly a bladder primary or prostate primary) extending through the posterior bladder wall into the posterior pelvis, and there is invasion of the distal ureters bilaterally. There is moderate to severe hydronephrosis and hydroureter bilaterally secondary to distal ureteral obstruction by mass (new on the left). Nonobstructive renal stones are seen. There is a tiny dependent stone in the distal left ureter measuring 1.8 mm. 2. Sclerotic bone metastases appears slightly worsened. 3. There are mild compression fractures involving T12 and L1 that are new from prior and may be pathologic. 4. A metastatic lesion in the right lower lobe has increased in size. A nodule in the right middle lobe is unchanged. 5. Worsening bilateral pelvic lymphadenopathy is likely metastatic. 6. There is heavy calcification at the origin the right renal artery likely reflecting underlying stenosis. -I did discuss the case with Dr. Forrester, he feels that this bladder mass is likely prostate, patient was supposed to follow-up with biopsy, but he never came to fruition, options are hospice versus pursuing treatment including palliative stent placement -Have discussed the case with oncology, hopefully Dr. Saab can come by and discussed with patient his options -Intractable pain -Generalized weakness -Protein calorie malnutrition -Pathologic fractures T12, L1 Plan: -Pain is now under control continue Dilaudid 0.5 mg every 4 hours as needed, oxycodone 5 mg every 8 hours for breakthrough pain -Discussed with patient hospice options -Bowel regimen, MiraLAX, Colace -Intranasal calcitonin for pathologic fractures -Consult PT OT -Consult dietary -Patient is not sure if he wants to pursue treatment versus hospice -Given concerns for bilateral hydronephrosis and hydroureter secondary to bladder mass, will continue IV fluids, continue -Discuss with oncology options are available -Lovenox for DVT prophylaxis -DNR/DNI Plan for today continue pain control, bowel regimen, encourage p.o. intake continue IV fluids, continue antibiotics, await patient's decision about treatment versus full hospice, will have hopefully oncology service come by and discussed with patient his medical options Status: Acute (2) Generalized weakness: Status: Acute (3) Protein calorie malnutrition: Status: Acute (4) Pathologic compression fracture of lumbar vertebra: Status: Acute (5) Prostate cancer metastatic to bone: Status: Acute (6) Back pain: Status: Acute Qualifiers: Back pain location: low back pain Chronicity: chronic Back pain laterality: midline Sciatica presence: without sciatica Qualified Code(s): M54.5 - Low back pain; G89.29 - Other chronic pain (7) Bladder mass: Status: Acute (8) Pulmonary nodule: Status: Acute (9) COPD (chronic obstructive pulmonary disease): Status: Acute Qualifiers: COPD type: emphysema (10) Hyperlipidemia, unspecified: Status: Acute Qualifiers: Hyperlipidemia type: unspecified Qualified Code(s): E78.5 - Hyperlipidemia, unspecified (11) Presence of cardiac pacemaker: Status: Acute Attestations Medical Necessity Statement*: Patient requires hospitalization for pathologic compression fracture of vertebrae, metastatic prostate cancer, bilateral hydroureter and hydronephrosis from compression by cancer, concerns for UTI, protein calorie malnutrition, intractable pain Coding Level of Care Code Acute [employer] for g Fwd Diagnoses Pathologic compression fracture of thoracic vertebra M48.54XA Generalized weakness R53.1 Protein calorie malnutrition E46 Pathologic compression fracture of lumbar vertebra M48.56XA Prostate cancer metastatic to bone C61; C79.51 Back pain M54.5; G89.29 Back pain location: low back pain Chronicity: chronic Back pain laterality: midline Sciatica presence: without sciatica Bladder mass N32.89 Pulmonary nodule R91.1 COPD (chronic obstructive pulmonary disease) J44.9 COPD type: emphysema Hyperlipidemia, unspecified E78.5 Hyperlipidemia type: unspecified Presence of cardiac pacemaker Z95.0
[2021-04-17] MEDS: lactulose oral liq 20 gm/30 mL UDC PO (14:58)
--- NOTE | 2021-04-17 15:02 | PC.NURSE ---
Resting with lights out. NO acute distress noted. Continue to monitor. Waiting for Dr Tony to return to call.
--- NOTE | 2021-04-17 16:02 | PC.NURSE ---
Resting wit light off. Respiration even and unlabored. Continue to monitor
--- NOTE | 2021-04-17 17:00 | PC.NURSE ---
Lights off. Respiration even and unlabored. No acute distress. Continue to monitor
--- NOTE | 2021-04-17 17:26 | PC.NUTR ---
Nutrition consult per Dr. Tony for malnutrition. Attempted to interview but pt was asleep. Nurse reports that pt complains of pain. 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 Will be sending Ensure Plus BID and an Ensure milkshake 1x/d. Recommend encouraging po intake of meals and fluids. Provide preferences as available. See full RD assessment for further details.
--- NOTE | 2021-04-17 20:05 | PC.NURSE ---
Patient refused medications stating he will choke on them and wants to talk to the doctor before he takes anything else by mouth.
[2021-04-17] MEDS: sodium chloride 0.9% 1,000 ML 50 ML IV (22:24)
[2021-04-17] MEDS: enoxaparin 40 mg/0.4 mL Syringe SUBCUT (22:25)
[2021-04-18] VITALS (11 sets, daily range): BP systolic 105–121; BP diastolic 64–83; PULSE 62–87; RESP 14–28; TEMP 36.8–37.3; O2SAT 96–97
[2021-04-18] MEDS: piperacillin-tazobactam 3.375 GM in sodium chloride 0.9% (plus) 50 ML IV ×2 (06:13→15:40)
[2021-04-18 06:15] LABS: Basophils % 0.4 %; Eosinophils # 0.1 10^3/uL (0.0-0.8); Hematocrit 30.7 % (42.0-52.0); Hemoglobin 9.3 g/dL (11.7-16.6); Lymphocytes # 0.8 10^3/uL (0.8-4.8); Lymphocytes % 9.8 %; Mean Corpuscular HGB Conc 30.3 g/dL (30.0-36.0); Mean Corpuscular Hemoglobin 27.7 pg (28.0-34.0); Mean Corpuscular Volume 91.4 fl (80-94); Mean Platelet Volume 9.3 fL (7.4-10.4); Monocytes # 0.7 10^3/uL (0.2-0.9); Neutrophils # 6.52 10^3/uL (1.8-7.7); Neutrophils % 77.4 %; Nucleated Red Blood Cells % 0 %; Platelet Count 215 10^3/cmm (130-400); Red Blood Count 3.36 10^6/uL (4.1-5.3); Red Cell Distribution Width 14.1 % (12.1-15.1); White Blood Count 8.4 10^3/uL (4.0-10.0)
[2021-04-18] MEDS: HYDROmorphone 1 mg/mL INJ 1 mL 0.5 MG IVP ×4 (06:20→20:22)
[2021-04-18 06:34] LABS: Alanine Aminotransferase 24 U/L (0-41); Albumin Level 2.6 g/dL (3.5-5.2); Alkaline Phosphatase 358 IU/L (40-130); Anion Gap 17.2 (5-19); Aspartate Amino Transferase 42 U/L (0-40); Blood Urea Nitrogen 24 mg/dL (8-23); Calcium 8.6 mg/dL (8.5-10.5); Carbon Dioxide 22 mmol/L (22-29); Chloride 104 mmol/L (98-107); Globulin 3.2 g/dL (1.3-4.6); Glucose 95 mg/dL (65-115); Magnesium 2.1 mg/dL (1.7-2.3); Osmolality Calculated 292 mOsm/kg (285-295); Phosphorus 3.5 mg/dL (2.5-4.5); Potassium 4.2 mmol/L (3.5-5.1); Sodium 139 mmol/L (136-145); Total Bilirubin 0.4 mg/dL (0.15-1.2); Total Protein 5.8 g/dL (6.6-8.7)
--- NOTE | 2021-04-18 15:17 | PC.NURSE ---
Student nurse Dianna Rendon documentation reviewed/approved for accuracy by this nurse.
--- NOTE | 2021-04-18 17:10 | P.PN_ITS ---
Subjective Subjective: Interval history: Patient was seen this morning, he tells me his pain is well controlled, no nausea, no vomiting, no fevers, chills Had a family meeting with patient, patient's niece, and patient's brother -I discussed patient's diffusely metastatic prostate cancer, with intractable pain, his poor functional status, his weight loss, muscle wasting, poor appetite, -Discussed findings of compression fracture T12-L1, currently conservatively managing with pain control, currently patient declines any surgical intervention any kyphoplasty -Discussed findings which were known of right lower lobe lung lesion, bilateral pelvic lymphadenopathy concerning for metastatic disease -Discussed known enlarging mass in the posterior bladder, I went over my discussion with Dr. Saab with patient's family, it is still not known if this mass is prostate versus bladder cancer, he was supposed to have a biopsy however it never came to fruition. Options are available to him if we could pursue biopsy, and if it is indeed bladder cancer, we could pursue chemo and/or radiation therapy. Benefits prostate cancer he could be a candidate for palliative radiation therapy. 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, so he would require ureteral stent or nephrostomy tube placement -Ultimately what I discussed with patient with today's goals of care pursuing hospice and pain control versus medical management and pain control -I discussed all options available to the patient, discussed risks and benefits, they voiced understanding, all questions answered -Patient has agreed to proceed with hospice, hospice is a detention, goals of care is pain control, is DNR/DNI he does not want to pursue any treatment for this posterior bladder mass, or his prostate cancer, he just wants to manage his pain and wants to remain comfortable Vitals/I&O/Wt Last Vital Signs Temp 98.2 F 04/18/21 16:00 Pulse 75 04/18/21 16:00 Resp 18 04/18/21 16:00 BP 105/64 04/18/21 16:00 Pulse Ox 97 04/18/21 16:00 04/18/21 04/18/21 04/18/21 06:59 14:59 22:59 Intake Total 50 / 1150 1177.5 / 1177.5 0 / 1177.5 Output Total 500 / 500 Balance -450 / 650 1177.5 / 1177.5 0 / 1177.5 Physical Exam Narrative: EXAM NARRATIVE: Protein calorie malnutrition, muscle wasting Const: GENERAL APPEARANCE: cooperative and frail appearing NUTRITIONAL APPEARANCE: thin ORIENTATION/CONSCIOUSNESS: Yes awake, Yes oriented to person, Yes oriented to place and Yes oriented to time Resp: COMMON NORMALS: normal respiratory effort, No retractions, No use of accessory muscles and clear to auscultation bilaterally AUSCULTATION: clear to auscultation bilaterally Cardio: COMMON NORMALS: regular rate, regular rhythm, S1 normal heart sound present and S2 normal heart sound present RATE: regular rate RHYTHM: regular rhythm HEART SOUNDS: S1 normal heart sound present and S2 normal heart sound present GI: COMMON NORMALS: Normal to inspection, nondistended, normoactive bowel sounds present, Soft to palpation and non-tender PALPATION: Yes Soft to palpation Extremity: COMMON NORMALS: no pedal edema Neuro: SENSORIUM/ORIENTATION: Yes oriented to person, Yes oriented to place and Yes oriented to time Urinary Catheter Management^: Mijares: Cath Placed During This Visit: yes Reason for Continuing Indwelling Catheter: Accurate Measurement of Urinary Output in Critically Ill Patients Urinary Catheter Date of Insertion: 04/16/21 Urinary Catheter Time of Insertion: 21:53 Data : 04/18/21 05:40 04/18/21 05:40 Micro: Microbiology 04/16/21 21:52 Urine Culture - Preliminary Urine Catheterized 04/16/21 17:10 Blood Culture - Preliminary Blood NEGATIVE TO DATE 04/16/21 16:59 Blood Culture - Preliminary Blood NEGATIVE TO DATE A&P Assessment and plan (1) Pathologic compression fracture of thoracic vertebra: -bone scan Bone lesions: Diffuse bony metastatic disease involving the axial and appendicu lar skeleton has developed since the prior examination. This is most prominent in the thoracic and lumbar spine as well as the manubrium. Calvarial metastasis. Metastatic lesions involving the shoulders, ribs, proximal humeri, pelvis and proximal femurs. -CTAbdomen and Pelvis 1. Enlarging mass in the posterior bladder (possibly a bladder primary or prostate primary) extending through the posterior bladder wall into the posterior pelvis, and there is invasion of the distal ureters bilaterally. There is moderate to severe hydronephrosis and hydroureter bilaterally secondary to distal ureteral obstruction by mass (new on the left). Nonobstructive renal stones are seen. There is a tiny dependent stone in the distal left ureter measuring 1.8 mm. 2. Sclerotic bone metastases appears slightly worsened. 3. There are mild compression fractures involving T12 and L1 that are new from prior and may be pathologic. 4. A metastatic lesion in the right lower lobe has increased in size. A nodule in the right middle lobe is unchanged. 5. Worsening bilateral pelvic lymphadenopathy is likely metastatic. 6. There is heavy calcification at the origin the right renal artery likely reflecting underlying stenosis. -I did discuss the case with Dr. Forrester, he feels that this bladder mass is likely prostate, patient was supposed to follow-up with biopsy, but he never came to fruition, options are hospice versus pursuing treatment including palliative stent placement -Have discussed the case with oncology, hopefully Dr. Saab can come by and discussed with patient his options -Intractable pain -Generalized weakness -Protein calorie malnutrition -Pathologic fractures T12, L1 Plan: -Pursuing hospice, hospice consult son, working on detention placement -Pain is now under control continue Dilaudid 0.5 mg every 4 hours as needed, oxycodone 5 mg every 8 hours for breakthrough pain -Bowel regimen, MiraLAX, Colace -Intranasal calcitonin for pathologic fractures -Consult dietary -Patient is not sure if he wants to pursue treatment versus hospice -Continue antibiotics -Lovenox for DVT prophylaxis -DNR/DNI Plan for today continue pain control, bowel regimen, encourage p.o. intake continue, place hospice orders Status: Acute (2) Generalized weakness: Status: Acute (3) Protein calorie malnutrition: Status: Acute (4) Pathologic compression fracture of lumbar vertebra: Status: Acute (5) Prostate cancer metastatic to bone: Status: Acute (6) Back pain: Status: Acute Qualifiers: Back pain location: low back pain Chronicity: chronic Back pain laterality: midline Sciatica presence: without sciatica Qualified Code(s): M54.5 - Low back pain; G89.29 - Other chronic pain (7) Bladder mass: Status: Acute (8) Pulmonary nodule: Status: Acute (9) COPD (chronic obstructive pulmonary disease): Status: Acute Qualifiers: COPD type: emphysema (10) Hyperlipidemia, unspecified: Status: Acute Qualifiers: Hyperlipidemia type: unspecified Qualified Code(s): E78.5 - Hyperlipid emia, unspecified (11) Presence of cardiac pacemaker: Status: Acute Attestations Medical Necessity Statement*: Patient requires hospitalization for metastatic prostate cancer, enlarging posterior bladder mass, proceeding with hospice Coding Level of Care Code Acute Unit Aide Tech for [facility] Fwd Diagnoses Pathologic compression fracture of thoracic vertebra M48.54XA Generalized weakness R53.1 Protein calorie malnutrition E46 Pathologic compression fracture of lumbar vertebra M48.56XA Prostate cancer metastatic to bone C61; C79.51 Back pain M54.5; G89.29 Back pain location: low back pain Chronicity: chronic Back pain laterality: midline Sciatica presence: without sciatica Bladder mass N32.89 Pulmonary nodule R91.1 COPD (chronic obstructive pulmonary disease) J44.9 COPD type: emphysema Hyperlipidemia, unspecified E78.5 Hyperlipidemia type: unspecified Presence of cardiac pacemaker Z95.0
[2021-04-19] VITALS (9 sets, daily range): BP systolic 114–140; BP diastolic 76–88; PULSE 70–83; RESP 19–27; TEMP 36.6–36.9; O2SAT 93–98
[2021-04-19] MEDS: HYDROmorphone 1 mg/mL INJ 1 mL 0.5 MG IVP ×4 (03:48→19:36)
[2021-04-19] MEDS: ropinirole 2 mg Tablet PO (08:12)
[2021-04-19] MEDS: docusate sodium 100 mg Capsule PO ×2 (08:12→17:57)
[2021-04-19] MEDS: sulfamethoxazole-trimeth DS 160-800 mg Tablet 1 TAB PO ×2 (08:12→17:57)
[2021-04-19] MEDS: famotidine 20 mg Tablet PO ×2 (08:12→17:57)
[2021-04-19] MEDS: polyethylene glycol 3350 Pkt 17 gm PO (08:13)
--- NOTE | 2021-04-19 15:46 | PM.PN ---
Subjective Subjective: Interval history: Patient was seen this morning, he tells me that his pain is tolerable, he still having difficulty swallowing, but he does enjoy his soda drinks, he also can keep down Ensure, he asked me how long will it take him to go to over to the group home on hospice Vitals/I&O/Wt Last Vital Signs Temp 97.9 F 04/19/21 11:36 Pulse 72 04/19/21 11:36 Resp 27 H 04/19/21 13:52 BP 126/88 04/19/21 11:36 Pulse Ox 93 04/19/21 11:36 04/19/21 04/19/21 04/19/21 06:59 14:59 22:59 Intake Total 120 / 120 Output Total 700 / 700 Balance -700 / 477.5 120 / 120 Physical Exam Narrative: EXAM NARRATIVE: Protein calorie malnutrition, muscle wasting Const: COMMON NORMALS: no acute distress and patient oriented x3 GENERAL APPEARANCE: cooperative and frail appearing NUTRITIONAL APPEARANCE: thin Resp: COMMON NORMALS: normal respiratory effort, No retractions, No use of accessory muscles and clear to auscultation bilaterally AUSCULTATION: clear to auscultation bilaterally Cardio: COMMON NORMALS: regular rate, regular rhythm, S1 normal heart sound present and S2 normal heart sound present RATE: regular rate RHYTHM: regular rhythm HEART SOUNDS: S1 normal heart sound present and S2 normal heart sound present GI: COMMON NORMALS: Normal to inspection, nondistended, normoactive bowel sounds present, Soft to palpation and non-tender PALPATION: Yes Soft to palpation Extremity: COMMON NORMALS: no pedal edema Neuro: COMMON NORMALS: patient oriented x3 Psych: COMMON NORMALS: mental status grossly normal Urinary Catheter Management^: Mijares: Cath Placed During This Visit: yes Reason for Continuing Indwelling Catheter: Accurate Measurement of Urinary Output in Critically Ill Patients Urinary Catheter Date of Insertion: 04/16/21 Urinary Catheter Time of Insertion: 21:53 Data : 04/18/21 05:40 04/18/21 05:40 Micro: Microbiology 04/16/21 21:52 Urine Culture - Preliminary Urine Catheterized Enterococcus species A&P Assessment and plan (1) Pathologic compression fracture of thoracic vertebra: -bone scan Bone lesions: Diffuse bony metastatic disease involving the axial and appendicular skeleton has developed since the prior examination. This is most prominent in the thoracic and lumbar spine as well as the manubrium. Calvarial metastasis. Metastatic lesions involving the shoulders, ribs, proximal humeri, pelvis and proximal femurs. -CTAbdomen and Pelvis 1. Enlarging mass in the posterior bladder (possibly a bladder primary or prostate primary) extending through the posterior bladder wall into the posterior pelvis, and there is invasion of the distal ureters bilaterally. There is moderate to severe hydronephrosis and hydroureter bilaterally secondary to distal ureteral obstruction by mass (new on the left). Nonobstructive renal stones are seen. There is a tiny dependent stone in the distal left ureter measuring 1.8 mm. 2. Sclerotic bone metastases appears slightly worsened. 3. There are mild compression fractures involving T12 and L1 that are new from prior and may be pathologic. 4. A metastatic lesion in the right lower lobe has increased in size. A nodule in the right middle lobe is unchanged. 5. Worsening bilateral pelvic lymphadenopathy is likely metastatic. 6. There is heavy calcification at the origin the right renal artery likely reflecting underlying stenosis. -I did discuss the case with Dr. Forrester, he feels that this bladder mass is likely prostate, patient was supposed to follow-up with biopsy, but he never came to fruition, options are hospice versus pursuing treatment including palliative stent placement -Have discussed the case with oncology, hopefully Dr. Saab can come by and discussed with patient his options -Intractable pain -Generalized weakness -Protein calorie malnutrition -Pathologic fractures T12, L1 Plan: -Pursuing hospice, hospice consult son, working on group home placement -Pain is now under control continue Dilaudid 0.5 mg every 4 hours as needed, oxycodone 5 mg every 8 hours for breakthrough pain -Bowel regimen, MiraLAX, Colace -Intranasal calcitonin for pathologic fractures -Consult dietary -De-escalate to Bactrim -stop Lovenox for DVT prophylaxis due to anemia, SCDs -DNR/DNI Plan for today continue pain control, bowel regimen, encourage p.o. intake continue, working on placement for hospice Status: Acute (2) Generalized weakness: Status: Acute (3) Protein calorie malnutrition: Status: Acute (4) Pathologic compression fracture of lumbar vertebra: Status: Acute (5) Prostate cancer metastatic to bone: Status: Acute (6) Back pain: Status: Acute Qualifiers: Back pain location: low back pain Chronicity: chronic Back pain laterality: midline Sciatica presence: without sciatica Qualified Code(s): M54.5 - Low back pain; G89.29 - Other chronic pain (7) Bladder mass: Status: Acute (8) Pulmonary nodule: Status: Acute (9) COPD (chronic obstructive pulmonary disease): Status: Acute Qualifiers: COPD type: emphysema (10) Hyperlipidemia, unspecified: Status: Acute Qualifiers: Hyperlipidemia type: unspecified Qualified Code(s): E78.5 - Hyperlipidemia, unspecified (11) Presence of cardiac pacemaker: Status: Acute Attestations Medical Necessity Statement*: Patient requires hospitalization for metastatic prostate cancer, pursuing hospice Coding Level of Care Code Acute Search Engine Marketing Strategist for [facility] Fwd Diagnoses Pathologic compression fracture of thoracic vertebra M48.54XA Generalized weakness R53.1 Protein calorie malnutrition E46 Pathologic compression fracture of lumbar vertebra M48.56XA Prostate cancer metastatic to bone C61; C79.51 Back pain M54.5; G89.29 Back pain location: low back pain Chronicity: chronic Back pain laterality: midline Sciatica presence: without sciatica Bladder mass N32.89 Pulmonary nodule R91.1 COPD (chronic obstructive pulmonary disease) J44.9 COPD type: emphysema Hyperlipidemia, unspecified E78.5 Hyperlipidemia type: unspecified Presence of cardiac pacemaker Z95.0
[2021-04-19] MEDS: tamsulosin 0.4 mg Capsule PO (20:08)
[2021-04-20] VITALS: BP 111/73; PULSE 77; RESP 16; TEMP 36.7; O2SAT 97
[2021-04-20 03:37] VITALS: BP 129/84; PULSE 80; RESP 19; TEMP 36.7; O2SAT 97
[2021-04-20 06:31] VITALS: RESP 28
[2021-04-20] MEDS: HYDROmorphone 1 mg/mL INJ 1 mL 0.5 MG IVP (06:31)
[2021-04-20 08:00] VITALS: BP 146/91; PULSE 88; RESP 22; TEMP 36.6; O2SAT 96
[2021-04-20] MEDS: docusate sodium 100 mg Capsule PO (08:49)
[2021-04-20] MEDS: sulfamethoxazole-trimeth DS 160-800 mg Tablet 1 TAB PO (08:49)
[2021-04-20] MEDS: ropinirole 2 mg Tablet PO (08:50)
[2021-04-20] MEDS: famotidine 20 mg Tablet PO (08:51)
[2021-04-20 09:35] VITALS: RESP 15
[2021-04-20] MEDS: oxyCODONE-APAP 5-325 mg Tablet 1 TAB PO (09:35)
--- NOTE | 2021-04-20 11:43 | PM.DCS ---
Discharge Providers Date of Admission: 04/16/21 18:18 Date of Discharge: April 20, 2021 Attending Provider at Admission: Baldemar Tony MD Attending Provider at Discharge: Baldemar Tony MD Primary Care Provider: Adilia Cummings MD Diagnoses at Discharge Discharge Diagnosis (1) Pathologic compression fracture of thoracic vertebra: Status: Acute (2) Generalized weakness: Status: Acute (3) Protein calorie malnutrition: Status: Acute (4) Pathologic compression fracture of lumbar vertebra: Status: Acute (5) Prostate cancer metastatic to bone: Status: Acute (6) Back pain: Status: Acute Qualifiers: Back pain location: low back pain Chronicity: chronic Back pain laterality: midline Sciatica presence: without sciatica Qualified Code(s): M54.5 - Low back pain; G89.29 - Other chronic pain (7) Bladder mass: Status: Acute (8) Pulmonary nodule: Status: Acute (9) COPD (chronic obstructive pulmonary disease): Status: Acute Qualifiers: COPD type: emphysema (10) Hyperlipidemia, unspecified: Status: Acute Qualifiers: Hyperlipidemia type: unspecified Qualified Code(s): E78.5 - Hyperlipidemia, unspecified (11) Presence of cardiac pacemaker: Status: Acute Reason for Visit Reason for Visit: SOB Hospital Course Hospital Course Jake Jarrell is a 81 year old male with a past medical history of metastatic cancer of prostate to bone, COPD, 2 L oxygen dependent, hyperlipidemia, hypertension, who presents to [facility] due to generalized weakness, poor appetite, diffuse bony pain, severe back pain, decreased urination. Patient was admitted to [facility] due to intractable cancer related pain, pathological fracture of thoracic vertebra, bilateral ureteral compression, bladder mass, UTI, deconditioning, -bone scan Bone lesions: Diffuse bony metastatic disease involving the axial and appendicular skeleton has developed since the prior examination. This is most prominent in the thoracic and lumbar spine as well as the manubrium. Calvarial metastasis. Metastatic lesions involving the shoulders, ribs, proximal humeri, pelvis and proximal femurs. -CTAbdomen and Pelvis 1. Enlarging mass in the posterior bladder (possibly a bladder primary or prostate primary) extending through the posterior bladder wall into the posterior pelvis, and there is invasion of the distal ureters bilaterally. There is moderate to severe hydronephrosis and hydroureter bilaterally secondary to distal ureteral obstruction by mass (new on the left). Nonobstructive renal stones are seen. There is a tiny dependent stone in the distal left ureter measuring 1.8 mm. 2. Sclerotic bone metastases appears slightly worsened. 3. There are mild compression fractures involving T12 and L1 that are new from prior and may be pathologic. 4. A metastatic lesion in the right lower lobe has increased in size. A nodule in the right middle lobe is unchanged. 5. Worsening bilateral pelvic lymphadenopathy is likely metastatic. 6. There is heavy calcification at the origin the right renal artery likely reflecting underlying stenosis. -I did discuss the case with Dr. Forrester, he feels that this bladder mass is likely prostate, patient was supposed to follow-up with biopsy, but he never came to fruition, options are hospice versus pursuing treatment including palliative stent placement -Discussed the case with Dr. Saab, he advised of either pursuing hospice or pursuing medical therapy including mass biopsy to decide if it is truly bladder cancer versus prostate cancer -After discussing the risks and benefits of all options, patient and family voiced understanding, all questions answered, agreed to proceed with hospice -Patient was managed with antibiotics, IV pain control -Patient will be discharged to hospice, to [facility] Physical Exam Const: COMMON NORMALS: no acute distress and patient oriented x3 Resp: COMMON NORMALS: normal respiratory effort, No retractions, No use of accessory muscles and clear to auscultation bilaterally AUSCULTATION: clear to auscultation bilaterally Cardio: COMMON NORMALS: regular rate, regular rhythm, S1 normal heart sound present and S2 normal heart sound present RATE: regular rate RHYTHM: regular rhythm HEART SOUNDS: S1 normal heart sound present and S2 normal heart sound present GI: COMMON NORMALS: Normal to inspection, nondistended, normoactive bowel sounds present, Soft to palpation and non-tender PALPATION: Yes Soft to palpation Extremity: COMMON NORMALS: no pedal edema Neuro: COMMON NORMALS: patient oriented x3 Psych: COMMON NORMALS: mental status grossly normal Urinary Catheter Management^: Mijares: Cath Placed During This Visit: yes Reason for Continuing Indwelling Catheter: Accurate Measurement of Urinary Output in Critically Ill Patients Urinary Catheter Date of Insertion: 04/16/21 Urinary Catheter Time of Insertion: 21:53 Discharge Data Data Completed and Pending: Completed Studies During Hospitalization Category Date Time Status CT abdomen pelvis w con* [id number] Stat Cat Scan 04/16/21 13:45 Completed XR chest 1V jeyson ble [id number] Stat Exams 04/16/21 12:38 Completed Pending at discharge Category Date Time Status Blood Culture Sta t Lab 04/16/21 17:10 Results Urine Culture Sta t Lab 04/16/21 21:52 Results Vitals: Last Vital Signs Temp 97.9 F 04/20/21 08:00 Pulse 88 04/20/21 08:00 Resp 15 04/20/21 09:35 BP 146/91 04/20/21 08:00 Pulse Ox 96 04/20/21 08:00 Discharge Plan Discharge Patient Disposition: Hospice - Medical Facility Condition: Stable Prescriptions: New calcitonin (salmon) 200 unit/actuation [place],Non-Aerosol 1 spray nostril-al DAILY 30 Days Qty: 3.7 RF: 0 sulfamethoxazole-trimethoprim 800-160 mg Tablet 1 tab PO BID 3 Days Qty: 6 RF: 0 Continued omeprazole 20 mg tablet,delayed release (DR/EC) 20 mg PO BID RF: 0 hydrochlorothiazide 12.5 mg tablet 12.5 mg PO DAILY MDD see pharmacy comment PRN (Reason: shortness of breath) Qty: 30 RF: 3 amlodipine 5 mg tablet 5 mg PO DAILY Qty: 30 RF: 6 ipratropium-albuterol 0.5 mg-3 mg(2.5 mg base)/3 mL solution for nebulization 3 ml inhalation Q4H Qty: 540 RF: 3 metoprolol succinate 50 mg tablet extended release 24 hr 50 mg PO DAILY Qty: 90 RF: 3 Trelegy Ellipta 100-62.5-25 mcg blister with device 1 inh INHALATION Q24H 30 Days Qty: 28 RF: 6 ropinirole 2 mg Tablet 2 mg PO DAILY RF: 0 tamsulosin 0.4 mg capsule 0.4 mg PO BEDTIME RF: 0 Discontinued ezetimibe 10 mg tablet 10 mg PO DAILY RF: 0 gemfibrozil 600 mg tablet 600 mg PO BID RF: 0 oxycodone-acetaminophen [Percocet] 5-325 mg tablet 1 tab PO Q6H PRN (Reason: pain) 6 Days Qty: 24 RF: 0 Discharge Orders: Discharge Order (Routine); Ordered 04/20/21 Ordered By: Baldemar Tony Referrals: Adilia Cummings MD [Primary Care Provider] - Discharge Diet: Regular Discharge Activity: Resume usual activity Patient Instructions: Opioid Safety Discharge Attestations Time Spent in Discharge Care*: less than 30 min Quality Metrics Clinical Quality Measures During this hospital stay, did patient experience: None Coding Level of Care Code Acute Chg FW DC note Diagnoses Pathologic compression fracture of thoracic vertebra M48.54XA Generalized weakness R53.1 Protein calorie malnutrition E46 Pathologic compression fracture of lumbar vertebra M48.56XA Prostate cancer metastatic to bone C61; C79.51 Back pain M54.5; G89.29 Back pain location: low back pain Chronicity: chronic Back pain laterality: midline Sciatica presence: without sciatica Bladder mass N32.89 Pulmonary nodule R91.1 COPD (chronic obstructive pulmonary disease) J44.9 COPD type: emphysema Hyperlipidemia, unspecified E78.5 Hyperlipidemia type: unspecified Presence of cardiac pacemaker Z95.0
[2021-04-20 12:00] VITALS: BP 116/82; PULSE 74; RESP 18; TEMP 36.6; O2SAT 93
--- NOTE | 2021-04-20 13:48 | PC.NURSE ---
Report called to JOYCE Case, at [facility].
--- NOTE | 2021-04-20 18:07 | PC.RESP ---
PULMONARY REHAB INFORMATION SENT TO PATIENT.
--- NOTE | 2021-04-23 11:02 | PC.SOCIAL ---
discharge follow up all made. spoke with pt. he was unsure of where is was, but states he isn't home. called family member, Melissa, she reports pt is at [facility]. Will call and cancel follow up appointment with Dr. Cummings.
--- NOTE | 2021-04-24 08:13 | PC.SOCIAL ---
appoint[facility] cancelled due to [facility] being in [facility] at this time.
== END 2021-04-20 14:20 | disposition hospice, inpatient (51) | DRG 543 ==
LOC: ER 16:56 → ER IP 21:06 → MEDSURG 04-18 04:50 → MS 2A 04-18 12:35 → MEDSURG 04-18 12:37
PROVIDERS: Admitting Provider Family Medicine; Emergency Provider Family Medicine; PCP Family Medicine; Visit Provider Family Medicine
DX: M48.54XA Collapsed vertebra, not elsewhere classified, thoracic region, initial encounter for fracture (principal); C77.8 Secondary and unspecified malignant neoplasm of lymph nodes of multiple regions; C79.51 Secondary malignant neoplasm of bone; E46 Unspecified protein-calorie malnutrition; N39.0 Urinary tract infection, site not specified; N13.30 Unspecified hydronephrosis; G89.3 Neoplasm related pain (acute) (chronic); M48.56XA Collapsed vertebra, not elsewhere classified, lumbar region, initial encounter for fracture; C61 Malignant neoplasm of prostate; J43.9 Emphysema, unspecified; Z99.81 Dependence on supplemental oxygen; K21.9 Gastro-esophageal reflux disease without esophagitis; E78.5 Hyperlipidemia, unspecified; I10 Essential (primary) hypertension; M25.562 Pain in left knee; Z87.891 Personal history of nicotine dependence; R91.8 Other nonspecific abnormal finding of lung field; K76.89 Other specified diseases of liver; Z68.21 Body mass index [BMI] 21.0-21.9, adult; Z66 Do not resuscitate; Z95.0 Presence of cardiac pacemaker; K59.00 Constipation, unspecified; N32.9 Bladder disorder, unspecified
CPT/HCPCS: 36415; 36600; 51702; 71045; 74177; 80051; 80053; 81001; 82330; 82805; 83735; 84100; 84145; 84443; 84484; 85025; 86140; 87040; 87077; 87086; 87186; 92523; 92610; 93005; 96372; J1170; J1650; J2270; J2543; J2550; J7030; Q9967